=== PATIENT | female | born 1975 | race Caucasian/White ===

== ENCOUNTER → 2020-02-12 11:13 | Outpatient (BNVA) | payer OTHER, SELFPAY | PROVIDERS: Visit Provider Surgery | DX: Z76.89 Persons encountering health services in other specified circumstances (principal) ==

== ENCOUNTER → 2020-03-09 08:16 | Outpatient (BNVA) | payer OTHER, SELFPAY | PROVIDERS: PCP Nurse Practitioner Family; Visit Provider Surgery | DX: E66.3 Overweight (principal); Z68.28 Body mass index [BMI] 28.0-28.9, adult; Z71.3 Dietary counseling and surveillance | CPT/HCPCS: 99212 ==

== ENCOUNTER → 2020-04-15 07:55 | Outpatient (BNVA) | payer OTHER, SELFPAY | PROVIDERS: PCP Nurse Practitioner Family; Referring Provider Nurse Practitioner Family; Visit Provider Surgery | DX: Z76.89 Persons encountering health services in other specified circumstances (principal) ==

== ENCOUNTER → 2020-05-20 08:10 | Outpatient (BNVA) | payer OTHER, SELFPAY | PROVIDERS: PCP Nurse Practitioner Family; Visit Provider Surgery | DX: Z76.89 Persons encountering health services in other specified circumstances (principal) ==

== ENCOUNTER → 2020-07-01 08:17 | Outpatient (BNVA) | payer OTHER, SELFPAY | PROVIDERS: PCP Nurse Practitioner Family; Visit Provider Surgery ==

== ENCOUNTER → 2020-08-15 08:07 | Outpatient (BNVA) | payer OTHER, SELFPAY | PROVIDERS: PCP Nurse Practitioner Family; Visit Provider Surgery ==

== ENCOUNTER 2021-04-13 14:24 | Outpatient (REF) | payer OTHER, SELFPAY ==
[2021-04-13 15:24] LABS: COVID-19 Test Negative (Negative)
== END 2021-04-13 14:25 | disposition home or self-care (01) ==
LOC: HO.LAB 14:24
PROVIDERS: Visit Provider Internal Medicine
DX: Z20.822 Contact with and (suspected) exposure to COVID-19 (principal)
CPT/HCPCS: 36415; 87635; C9803

== ENCOUNTER 2023-12-16 11:00 | Outpatient (AMB) | payer OTHER, SELFPAY ==
[2023-12-16 11:07] VITALS: BP 120/78; PULSE 62; BMI 31.2
--- NOTE | 2023-12-16 11:07 | MHC.OFFVIS ---
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 It seems that she has been seen at [facility] in the past but she would like to switch. Cardiac history is very unclear. At some point, she has been told have reduced heart function in the 40% range but again it is from the patient only and no records available. Also told have diastolic dysfunction. Unclear if she has any hypertension as even without medications she has normal blood pressure. Apparently was taking a small dose of lisinopril and wonder if it is for cardiomyopathy. That was giving her strange sense of smell and hence she is not taking it anymore. She would like to move her cardiac care at [place]. [facility] Medical History (Updated 12/16/23 @ 12:03 by Guerrero Cheng MD) Asthma Surgical History (Updated 04/15/20 @ 09:43 by Werner Castañeda MD) S/P laparoscopic sleeve gastrectomy Overweight Hx laparoscopic cholecystectomy S/P hernia repair S/P tonsillectomy and adenoidectomy Family History (Updated 03/09/20 @ 08:16 by Giovanny Loya CMA) Father No problems noted. Mother No problems noted. Brother HTN (hypertension) Arthritis Depression Hyperlipidemia Brother No problems noted. Brother No problems noted. Sister No problems noted. Sister No problems noted. Son No problems noted. Son No problems noted. Daughter No problems noted. Daughter No problems noted. Daughter No problems noted. Social History (Updated 12/16/23 @ 11:23 by Emily Alex) Alcohol intake: never Patient Tobacco Use Status: Never used Tobacco Review of Systems Const Denies weakness ENT Denies dizziness Card Reports chest pain, Denies chest pain with activity, Denies syncope, Denies rapid heart rate, Denies pedal edema, Denies edema, Denies leg edema, Denies lightheadedness, Denies palpitations, Denies dyspnea, Denies dyspnea on exertion and Denies orthopnea Resp Denies cough, Denies dyspnea and Denies dyspnea on exertion GI Denies hematochezia and Denies change in stool character Musc Denies abnormal gait, Denies muscle cramps, Denies muscle weakness, Denies numbness, Denies radiating pain into limb and Denies tingling Neuro Denies abnormal gait, Denies dizziness, Denies syncope, Denies numbness, Denies tingling and Denies weakness Endo Denies palpitations Physical Exam Vital Signs: Last Vital Signs Pulse 62 12/16/23 11:07 BP 120/78 12/16/23 11:07 BMI result Body Mass Index 31.2 Const General: comfortable and no acute distress Orientation/consciousness: patient oriented x3 HEENT Other: Unremarkable Head: Yes normal to inspection Neck Neck: Yes normal visual inspection Chest Chest palpation & inspection: normal inspection of the chest Resp Auscultation: clear to auscultation bilaterally Cardio Palpation: normal PMI Heart sounds: S1 normal heart sound present, S2 normal heart sound present, no gallops, no murmurs and no rubs GI Palpation (GI): Soft to palpation Back/Spine/Pelvis Other: unremarkable Skin General skin exam: no rashes or lesions noted Neuro General: patient oriented x3 Extrem General: Yes normal to inspection Psych Mental Status: mental status grossly normal Office Procedures EKG Details: EKG with underlying sinus rhythm at 62/Min; left ventricular hypertrophy with slight repolarization changes; [place]. [id number], Complete Assessment & Plan Assessment & Plan (1) Cardiac abnormality: Code(s): Q24.9 - Congenital malformation of heart, unspecified Category: Medical Plan Possible mild cardiomyopathy/diastolic dysfunction by patient description but no documentation available. EKG shows suggestion of LVH. Will get an echocardiogram for further evaluation. Records from [facility] will need to be obtained. Will arrange follow-up after the above reviewed. Orders: Orders CA echo transthoracic complete Today I42.9 - Cardiomyopathy, unspecified, I51.89 - Other ill-defined heart diseases Coding Level of Care Code New Pt Level 3 (66431) Diagnoses Cardiac abnormality Q24.9 CPT Codes EKG - CPT: 35759-[id number], Complete ([id number])
== END 2023-12-16 11:37 | disposition home or self-care (01) ==
PROVIDERS: PCP Nurse Practitioner Family; Visit Provider Internal Medicine
DX: Q24.9 Congenital malformation of heart, unspecified (principal)
CPT/HCPCS: 93010; 99203

== ENCOUNTER → 2023-12-16 11:00 | Outpatient (BNVA) | payer OTHER, SELFPAY | PROVIDERS: PCP Nurse Practitioner Family; Visit Provider Internal Medicine | DX: Q24.9 Congenital malformation of heart, unspecified (principal); I42.9 Cardiomyopathy, unspecified; I51.89 Other ill-defined heart diseases | CPT/HCPCS: 93005; 99202 ==

== ENCOUNTER → 2024-01-01 07:59 | Outpatient (REF) | payer OTHER, SELFPAY ==
--- NOTE | 2024-01-01 08:04 | CA_ITS ---
Transthoracic Echocardiogram Patient (Last, First, Middle): Abbie Velasquez, Gender: Female Date of : 1975 Age: 48 Procedure Date: 01/01/2024 Procedure Type: Transthoracic Echocardiogram Location: OP Height: 162.56 cm Weight: 80.29 kg BSA: 1.86 m2 Heart Rate: 50 bpm BP: 118 / 78 mmHg [employer]ospace [employer] Physician: TO Referring MD: Guerrero Cheng MD Center Rep: Clifford Mccloud MD Symptoms: I51.89 - Other ill-defined heart diseases Study Quality: Adequate ECG Rhythm: Bradycardia Conclusions: - 1. Mildly reduced LV ejection fraction of 45-50% with pseudonormal filling pattern 2. Trivial aortic regurgitation 3. Normal RV systolic pressure 4. No gross pericardial effusion Findings Procedure Information Contrast agent, definity, is being given per protocol without apparent complications. Left Ventricle Normal left ventricular cavity size. There is normal left ventricular wall thickness. The left ventricular systolic function is mildly decreased. The visually estimated ejection fraction is between 45-50%. Spectral Doppler is indicative of a pseudonormal filling pattern. E/E prime ratio is between 8 and 15 consistent with indeterminate filling pressures. Right Ventricle Normal right ventricular cavity size and systolic function. Atria The left atrium is likely dilated. There is no evidence of interatrial shunt. The right atrium is normal in size. Aortic Valve Normal aortic valve structure and function. There is no aortic valve stenosis. There is trace (trivial) aortic valve regurgitation. Mitral Valve Normal mitral valve structure and function. There is trace mitral valve regurgitation. There is no mitral valve stenosis. Pulmonic Valve The pulmonic valve is likely normal. There is trace to mild pulmonic valve regurgitation. Tricuspid Valve Normal tricuspid valve structure. There is trace tricuspid valve regurgitation. The right ventricular systolic pressure is normal. The right ventricular systolic pressure is 18 mmHg. Normal right atrial pressure. There is no evidence of pulmonary hypertension. Great Vessels All visible segments of the aorta are normal in size. The pulmonary artery was not well visualized. There is no dilatation of the ascending aorta measuring 3.10 cm. Venous The inferior vena cava is normal in size and collapses greater than 50% with inspiration. Pericardium/Pleural There is no evidence of pericardial effusion. Prior Study Comparison Changes noted compared to prior study dated: 07/04/2019. LV systolic function has marginally reduced Measurements 2D Linear Measurements IVSd: 1.18 0.6-0.9/0.6-1.0 cm LVIDd: 5.15 3.9-5.3/4.2-5.9 cm LVIDd Index: 2.77 2.4-3.2/2.2-3.1 cm/m2 LVIDs: 3.44 2.0-3.6 cm LVPWd: 1.17 0.7-1.1 cm LA Diam: 3.70 2.7-3.8/3.0-4.0 cm LAIDs Index: 1.99 1.5-2.3 cm/m2 LV Mass: 296.70 67-162/88-224 g LV Mass Index: 159.51 43-95/49-115 g/m2 LVOT Diam: 2.20 3.0+(-)1.3 cm 2D Systolic Function EF 4C: 44.40 >55% EF 2C: 52.20 >55% EF BiP: 48.10 >55% Mitral Valve MV Pk E: 0.65 MV PK A: 0.28 MV Decel Time: 306.00 E/A: 2.30 E'Lateral: 8.59 E'Medial: 5.77 E/E' Med: 11.20 E/E' Lat: 7.50 PHT: 90.00 MVA PHT: 2.44 Decel Dauphin: 2.11 Aortic Valve AoV Pk Devin: 1.38 AoV Mn Devin: 0.89 AoV VTI: 0.33 AoV Pk Grad: 8.00 Aov Mn Grad: 4.00 MURALI Cont.VTI: 2.18 LVOT LVOT Pk Devin: 0.81 LVOT Mn Devin: 0.55 LVOT VTI: 0.19 LVOT Pk Grad: 3.00 LVOT Mn Grad: 1.00 LVOT Diam: 2.20 LVOT Area: 3.80 Diastolic Function MV Pk E: 0.65 MV Pk A: 0.28 E/A: 2.30 E'Medial: 5.77 E/E' Med: 11.20 E' Laterial: 8.59 E/E' Lat: 7.50 Right Ventricle TAPSE (mm): 19.90 TVS' Devin: 11.50 Tricuspid Valve TR Pk Devin: 1.94 TR Pk Grad: 15.00 RA Press: 3.00 RVSP: 18.00 Great Vessels Aorta Sinus of Valsalva: 3.12 2.0-3.5 cm Ao Asc: 3.10 2.1-3.4 cm Updated in Other Vendor System with Status of Final Clifford Mccloud MD electronically signed on 01/01/2024 1:47:21 PM with status of Final
== END ==
LOC: HO.CARD 07:59
PROVIDERS: Visit Provider Internal Medicine
DX: I51.89 Other ill-defined heart diseases (principal); I42.9 Cardiomyopathy, unspecified
CPT/HCPCS: 93306; Q9957

== ENCOUNTER → 2024-01-01 08:04 | Outpatient (BNV) | payer OTHER, SELFPAY | PROVIDERS: Visit Provider Internal Medicine Cardiovascular Disease | DX: I35.1 Nonrheumatic aortic (valve) insufficiency (principal); I37.1 Nonrheumatic pulmonary valve insufficiency | CPT/HCPCS: 93306 ==

== ENCOUNTER 2024-03-23 13:37 | Outpatient (AMB) | payer OTHER, SELFPAY ==
[2024-03-23 13:41] VITALS: BP 100/62; PULSE 67; BMI 32.5
--- NOTE | 2024-03-23 13:41 | MHC.OFFVIS ---
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 She had been following with [facility] and recently transferred to our office. Today she reports that she has been feeling generally well. She is having an issue with her right hip and it is causing her discomfort and affecting her activity levels. She has some mild shortness of breath with exertion. No PND, orthopnea or edema. No chest discomfort at rest or with activity. No palpitations, lightheadedness, presyncope, syncope, falls. She does not recall ever having a stress test or cardiac catheterization. She dislikes taking medications. She misses her lisinopril 5 mg some days. Daughter is present. [facility] Medical History Asthma Surgical History S/P laparoscopic sleeve gastrectomy Overweight Hx laparoscopic cholecystectomy S/P hernia repair S/P tonsillectomy and adenoidectomy Family History Father No problems noted. Mother No problems noted. Brother HTN (hypertension) Arthritis Depression Hyperlipidemia Brother No problems noted. Brother No problems noted. Sister No problems noted. Sister No problems noted. Son No problems noted. Son No problems noted. Daughter No problems noted. Daughter No problems noted. Daughter No problems noted. Social History Alcohol intake: never Patient Tobacco Use Status: Never used Tobacco Review of Systems Const All systems reviewed & are unremarkable except as noted in HPI and below ENT Denies dizziness Card Denies chest pain, Denies chest pain at rest, Denies chest pain with activity, Denies rapid heart rate, Denies pedal edema, Denies edema, Denies leg edema, Denies lightheadedness, Denies palpitations, Reports dyspnea, Reports dyspnea on exertion and Denies orthopnea Resp Denies cough, Reports dyspnea and Reports dyspnea on exertion GI Denies hematochezia and Denies change in stool character Musc Denies abnormal gait, Reports limited range of motion (active right hip pains), Denies muscle cramps, Denies muscle weakness, Denies numbness, Denies radiating pain into limb, Denies stiffness and Denies tingling Neuro Denies abnormal gait, Denies dizziness, Denies numbness and Denies tingling Endo Denies palpitations Physical Exam Vital Signs: Last Vital Signs Pulse 67 03/23/24 13:41 BP 100/62 03/23/24 13:41 BMI result Body Mass Index 32.5 Const General: cooperative, healthy appearing, comfortable and no acute distress Orientation/consciousness: patient oriented x3 HEENT Head: Yes normal to inspection Eyes Sclerae: sclerae normal Neck Neck: Yes normal visual inspection and Yes no JVD Carotids: normal carotid upstroke Chest Chest palpation & inspection: normal inspection of the chest Resp Effort & Inspection: normal respiratory effort Auscultation: clear to auscultation bilaterally, no crackles, no rales, no rhonchi and no wheezes Cardio Jugular venous distension: no JVD Rate: regular rate Rhythm: regular rhythm Heart sounds: S1 normal heart sound present, S2 normal heart sound present, no gallops, no murmurs and no rubs Peripheral pulses: Peripheral pulses 2+ throughout GI Inspection: Yes normal to inspection Skin General skin exam: no rashes or lesions noted Neuro General: patient oriented x3 Extrem General: Yes normal to inspection, No no pedal edema and No calf tenderness Psych Appearance: grossly normal Mental Status: mental status grossly normal Speech and movement: Normal speech and movement present Office Procedures EKG Details: Today, read by me, normal sinus rhythm, rate 67, QTC 386 millisecond [id number], Complete Assessment & Plan Assessment & Plan (1) Cardiomyopathy: Code(s): I42.9 - Cardiomyopathy, unspecified Category: Medical Plan: History of nonischemic cardiomyopathy. Patient had followed with [facility] and their office note has been reviewed. It seems that cardiomyopathy 1st started 2007 with EF 25-30%. It was thought to be peripartum related at that time. Notes indicate a follow-up echo done 2017 showed EF 40-45%. She recently transferred to our office. An echocardiogram done 01/01/2024 shows EF 45-50%, trivial AR, normal RV systolic pressure. She has been on lisinopril 5 mg daily and tells me she does forget taking it at times. She does not recall ever having a stress test or cardiac catheterization. She does report some shortness of breath with exertional activities. Currently her activity is limited due to right hip pain. Going forward will plan for a exercise nuclear stress test. If she is unable to exercise at the time of the test can be changed to a Lexiscan nuclear stress. Blood pressure today 100/62. Continue lisinopril at 5 mg daily. Will reach out to her PCP to obtain most recent labs. Signs and symptoms of heart failure reviewed with her. Continue physical activity as tolerated. Cardiology follow-up 6 months, sooner if needed. Plan Time spent on chart review, documentation, interview, assessment Orders: Orders NM cardiolite stress test 03/23/24 I42.9 - Cardiomyopathy, unspecified CA stress test 03/23/24 I42.9 - Cardiomyopathy, unspecified Coding Level of Care Code Est Pt Level 3 (88548) Complex EM visit Add On G2211 Diagnoses Cardiomyopathy I42.9 CPT Codes EKG - CPT: 09984-[id number], Complete ([id number]) Time Spent (min) 24
== END 2024-03-23 14:20 | disposition home or self-care (01) ==
PROVIDERS: PCP Physician Assistant Medical; Visit Provider Nurse Practitioner Family
DX: I42.9 Cardiomyopathy, unspecified (principal)
CPT/HCPCS: 93010; 99213; G2211

== ENCOUNTER → 2024-03-23 13:37 | Outpatient (BNVA) | payer OTHER, SELFPAY | PROVIDERS: PCP Physician Assistant Medical; Visit Provider Nurse Practitioner Family | DX: I42.9 Cardiomyopathy, unspecified (principal) | CPT/HCPCS: 93005; 99212 ==

== ENCOUNTER → 2024-05-19 17:00 | Outpatient (BNV) | payer OTHER, SELFPAY | PROVIDERS: Emergency Provider Emergency Medicine; PCP Physician Assistant Medical; Visit Provider Internal Medicine | DX: R94.31 Abnormal electrocardiogram [ECG] [EKG] (principal) | CPT/HCPCS: 93010 ==

== ENCOUNTER → 2024-05-19 17:04 | Outpatient (BNV) | payer OTHER, SELFPAY | PROVIDERS: Emergency Provider Emergency Medicine; PCP Physician Assistant Medical; Visit Provider Radiology Diagnostic Radiology | DX: R07.9 Chest pain, unspecified (principal) | CPT/HCPCS: 71046 ==

== ENCOUNTER → 2024-06-19 09:45 | Outpatient (REF) | payer OTHER, SELFPAY | LOC: HO.CARD 09:45 | PROVIDERS: PCP Physician Assistant Medical; Visit Provider Nurse Practitioner Family | DX: I42.9 Cardiomyopathy, unspecified (principal) | CPT/HCPCS: 78452; A9500 ==

== ENCOUNTER → 2024-06-19 09:47 | Outpatient (BNV) | payer OTHER, SELFPAY | PROVIDERS: PCP Physician Assistant Medical | DX: R06.02 Shortness of breath (principal) | CPT/HCPCS: 78452; 93016; 93018 ==

== ENCOUNTER 2024-07-07 11:22 | Outpatient (AMB) | payer OTHER, SELFPAY ==
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
--- OUTSIDE RECORDS SUMMARY | 2024-07-07 13:59 | XMS_ITS | Clinical Summary ---
Author Organization [facility] Address [address] [place] [address] Care Team Providers Care Airline Managerial Supervisor Name Role Phone Unavailable Primary Care Provider Unavailabl e Source Comments PLEASE NOTE, if this patient is a minor, it may be UNLAWFUL to discuss sensitive information that is contained in these records (such as FAMILY PLANNING, MENTAL HEALTH or SUBSTANCE ABUSE) with the minor patient's parent or other person without the patient's specific authorization.[facility] Allergies Active Allergy Reactions Criticality Noted Date Comments Morphine SOB 03/06/2019 Medications albuterol sulfate (PROAIR HFA) 90 mcg/actuation inhaler ProAir HFA 90 mcg/actuation aerosol inhaler Active butalbital-acetam inophen-caff 50-300-40 mg capIndications:Ch ronic tension-type headache, not intractable TAKE 1 TO 2 CAPSULES BY MOUTH EVERY 4 HOURS NEEDED NO MORE THAN ONCE PER WEEK 11 9 Active lisinopril 2.5 mg tabletIndications :Uncontrolled type 2 diabetes mellitus with hyperglycemia ([facility]) 9 Active topiramate (TOPAMAX) 50 mg tabletIndications :Chronic tension-type headache, not intractable topiramate 50 mg tablet Active lancets (FREESTYLE LANCETS) 28 gaugeIndications: Uncontrolled type 2 diabetes mellitus with hyperglycemia ([facility]) Order Freestyle lancets, check sugar daily. Dx: E11.65. 100 Each 2 9 Active blood-glucose meter monitoring kitIndications:Ty pe 2 diabetes mellitus without complication, without long-term current use of insulin ([facility]) as needed for blood glucose monitoring Order Free style lite. Check sugar daily. Dx; E11.65 1 Each 9 Active traMADoL (ULTRAM) 50 mg tabletIndications :Chronic bilateral low back pain without sciatica Take 1 Tab by mouth once daily as needed for pain 30 Tab 0 Active naloxone (NARCAN) 4 mg/actuation nasal sprayIndications: Chronic bilateral low back pain without sciatica Place 1 [place] into the nostril(s) as needed for opioid reversal (Overdose) 1 Each 0 Active diclofenac sodium (VOLTAREN) [address] tabletIndications :Chronic bilateral low back pain without sciatica TAKE 1 TABLET BY MOUTH TWICE A DAY NEEDED FOR PAIN 60 Tablet 2 1 Active methocarbamoL (ROBAXIN) 750 mg tabletIndications :Chronic pain syndrome TAKE 1 TABLET BY MOUTH NIGHTLY AT BEDTIME NEEDED FOR MUSCLE SPASM 30 Tablet 1 1 Active cholecalciferol, vitamin D3, (VITAMIN D3) 1,250 mcg (50,000 unit) capsuleIndication s:Vitamin D deficiency TAKE 1 CAPSULE BY MOUTH ONE TIME PER WEEK 4 Capsule 11 2 Active FREESTYLE LITE STRIPS strips USE ONE STRIP ONCE DAILY 100 Each 47 2 Active diclofenac sodium (VOLTAREN) 1 % gelIndications:Le ft elbow pain Apply topically 2 (two) times daily 100 g 3 2 Active Active Problems Problem Noted Date Diagnosed Date Bilateral primary osteoarthritis of hip 12/20/19 20 Overview (09/04/2020): 08/18/2020: [facility]: Xray of both hips: FINDINGS: AP radiograph of the pelvis, along with coned-down AP and external rotation-abduction views of the right hip and coned down AP and external rotation-abduction views of the left hip, are obtained. The study demonstrates no fracture or dislocation. There is mild osteoarthritis of the hips bilaterally with small marginal osteophytes. No soft tissue abnormality is seen. IMPRESSION: No acute findings. Mild osteoarthritis of the hips bilaterally Chronic pain syndrome 07/05/2019 Hyperlipidemia LDL goal <70 07/05/2019 Cardiomyopathy (HCC-CMS): [facility] 05/30/2019 Overview (07/11/2019): [facility] . On 05/27/2019: nonischemic cardiomyopathy; EF 45-50% (improved). On low dose lisinopril, stopped BB. F/u in 1 year. Hx of echocardiogram 04/08/2019 Overview (04/08/2019): 02/19/2019: Echo: 45-50%. Done by [facility]. Influenza vaccine refused 04/08/2019 Vitamin D deficiency 04/08/2019 Chronic bilateral low back p ain without sciatica: Sees Pain at [facility] 04/08/2019 Overview (07/11/2019): Saw Pain at [facility]: 07/01/2019: offered injections and PT. Menorrhagia 03/06/2019 Dysmenorrhea 03/06/2019 Fibromyalgia Diabetes mellitus type 2, uncomplicated ([facility] ) Chronic headache Overview (04/14/2020): 03/27/2020: [facility]: CT of brain: Impression: 1. No acute hemorrhage or intracranial mass effect. 2. Mild, nonspecific deep white matter changes compatible with chronic microvascular ischemia. 03/27/2020: [facility]: CT of neck: IMPRESSION: No evidence of carotid or vertebral artery dissection or hemodynamically significant narrowing. 12/02/2018: [facility]: CT of jan:FINDINGS: Intracranial contents: No acute intracranial hemorrhage, midline shift or mass-effect. The ventricles, sulci, sylvian fissures and basilar cisterns are symmetric and normal in size and shape for the patients age. No abnormal intra or extra-axial fluid collections. Bony structures/soft tissues: Within normal limits. Sinuses: Paranasal sinuses are clear. Mastoid air cells are well aerated. IMPRESSION: No evidence of acute intracranial process on noncontrast head CT Asthma Hx of mammogram Overview (03/08/2019): [facility]: 06/2018: IMPRESSION: 1. No mammographic evidence of malignancy. 2. Annual screening mammography is recommended Nexplanon in place Hx of tonsillectomy Hx of cholecystectomy Hx of umbilical hernia repair Immunizations Name Administration Dates Next Due Flu, Preservative Free 12/24/2016 Moderna COVID-19 Vaccine, re d cap blue label, 12+ Primary Series 08/20/2020,07/22/2020 PFIZER COVID VACCINE, PURPLE CAP, 12+ 05/24/2021 PNEUMOCOCCAL POLYSACCHARIDE PPV23 07/02/2019 Family History Medical History Relation Name Comments No Known Problems Brother No Known Problems Father Arthritis Mother Heart Problems Mother High Cholesterol Mother Other (See Comments) Sister pancrea s problem. Relation Name Status Comments Brother Alive Father Alive Mother Alive Sister Alive Social History Tobacco Use Types Packs/Day Years Used Date Smoking Tobacco: Never Smokeless Tobacco: Never Alcohol Use Standard Drinks/Week Comments Yes 0 (1 standard drink = 0.6 oz pur e alcohol) social Social Connections Answer Date Recorded Connectedness 0 01/19/2024 Financial Resource Strain Answer Date R ecorded Financial Resource Strain 0 2018 Stress Answer Date Recorded Stress 0 03/06/2019 Physical Activity Answer Date Recorded Physical Activity 0 03/06/2019 Food Insecurity Answer Date Recorded Food 0 02/06/2024 Transportation Needs Answer Date Record ed Transportation 0 03/06/2019 Housing Stability Answer Date Recorded Housing 0 03/06/2019 Safety and Environment Answer Date Balaji rded Safety 0 08/30/2020 Utilities Answer Date Recorded Utilities 0 03/06/2019 Employment Answer Date Recorded Employment 0 03/06/2019 Comments No Sex and Gender Information Value Date Recorded Sex Assigned at Female 03/06/2019 7:56 AM PDT Legal Sex Female 7:03 AM PDT Gender Identity Female 03/06/2019 7:56 AM PDT Sexual Orientation Straight 03/06/2019 7: 56 AM PDT Last Filed Vital Signs Vital Sign Reading Time Taken Comments Blood Pressure 122/80 07/02/2019 9:47 AM EST Pulse 74 07/02/2019 9:47 AM EST Temperature 36.9 ??C (98.4 ??F) 07/02/2019 9:47 AM ES T Respiratory Rate 16 07/02/2019 9:47 AM EST Oxygen Saturation 98% 07/02/2019 9:47 AM EST Inhaled Oxygen Concentration - - Weight 96.2 kg (212 lb 1.6 oz) 07/02/2019 9:47 A M EST Height 163.7 cm (5' 4.45 ) 07/02/2019 9:47 AM ES T Body Mass Index 35.9 07/02/2019 9:47 AM EST Plan of Treatment Health Maintenance Due Date Last Done Comments Dental Examination 1975 HPV Screening 1975 Hepatitis C Screening 1975 Pap + HPV 1975 Tobacco Screening 1974 Imm-Hepatitis B (1 of 3 - 19 + 3-dose series) 1993 Cervical Cancer Screening [address] Colonography 2019 Colonoscopy 2019 Colorectal Cancer Screening 2019 FIT/gFOBT 2019 Fecal DNA 2019 Flexible Sigmoidoscopy 2019 Hypertension Screening (#1) 07/01/2020 Breast Cancer Screening (Mammogram) 06/07/2022 06/07/2021 Diabetes Screening 08/19/2023 08/18/2020, 0 08/18/2020, 03/06/2019, Additional history exists [id number] ( season) 2024 05/24/2021, 08/20/2020, 07/22/2020 Imm-Influenza (#1) 2024 12/24/2016 Imm-Zoster, Recombinant (1 of 2) 2024 Alcohol and Drug Screen 05/13/2024 08/31/19 21, 07/02/2019, 03/06/2019 Depression Annual Screen 05/13/2024 Lipid Screening 08/18/2025 08/18/2020, 03/06/2019 Imm-DTaP/Tdap/Td (2 - Td or Tdap) 04/08/2028 018 HIV Screening Completed 03/06/2019 Cervical Ablation/Cold-Knife Conization Discontinued Cervical Cryotherapy Discontinued Colposcopy Discontinued Endometrial Biopsy Discontinued Excision/Leep Discontinued HPV Genotyping Discontinued Vaginal Pap Discontinued Vulvoscopy Discontinued Procedures Procedure Name Priority Date/Time Associated Diagnosis Comments HISTORIC MAMMOGRAM 06/07/2021 3: 00 AM EST COMPREHENSIVE METABOLIC PANEL Routine 08/18/2020 10:10 AM EDT Type 2 diabetes mellitus without complication, without long-term current use of insulin ([facility]) LIPID PANEL Routine 08/18/2020 10:10 AM EDT Type 2 diabetes mellitus without complication, without long-term current use of insulin ([facility]) Hyperlipidemia LDL goal <70 ANTIBODY HIV-1&HIV-2 SINGLE RESULT Routine 03/06/2019 11:32 AM EDT Uncontrolled type 2 diabetes mellitus with hyperglycemia ([facility]) from Last 3 Months or Most Recently Relevant to Health Maintenance Results * HISTORIC MAMMOGRAM (06/07/2021 3:00 AM EST) 06/07/2021 3:00 AM EST [facility] IM MAMMO Edited Result - Final * COMPRE METAB PANEL (08/18/2020 10:10 AM EDT) GLUCOSE 88 65 - 99 mg/dL [facility] Comment: ?Fasting reference interval UREA NITROGEN (BUN) 15 7 - 25 mg/dL [facility] CREATININE (blood) 0.65 0.50 - 1.10 mg/dL [facility] GFR ESTIMATED 106 > OR = 60 mL/min/1 .73m2 [facility] EGFR 123 > OR = 60 mL/min/1 .73m2 [facility] BUN/CREATININE RATIO NOT APPLICABLE 6 - 22 [facility] SODIUM 137 135 - 146 mmol/L [facility] POTASSIUM 4.3 3.5 - 5.3 mmol/L [facility] CHLORIDE 103 98 - 110 mmol/L [facility] CARBON DIOXIDE 29 20 - 32 mmol/L [facility] CALCIUM 9.2 8.6 - 10.2 mg/dL [facility] PROTEIN, TOTAL 6.7 6.1 - 8.1 g/dL [facility] ALBUMIN 4.2 3.6 - 5.1 g/dL [facility] GLOBULIN 2.5 1.9 - 3.7 g/dL (calc) [facility] ALBUMIN/GLOBUL IN RATIO 1.7 1.0 - 2.5 (calc) [facility] BILIRUBIN, TOTAL 0.4 0.2 - 1.2 mg/dL [facility] ALKALINE PHOSPHATASE 63 31 - 125 U/L [facility] AST 16 10 - 35 U/L [employer] ALT 10 6 - 29 U/L [facility] Blood Blood / Unknown 08/18/2020 1 0:10 AM EDT 08/18/2020 10:10 AM EDT Narrative [facility] - 08/18/2020 8:09 PM EDT FASTING:YES Gemini L[facility] - BLOOD DRAW Final Result [facility] [address] [address], [facility] [address] [address] * HIV-1 & HIV-2 ANTIBODIES (03/06/2019 11:32 AM EDT) [facility] HIV 1 AND 2 ANTIBODY SCREEN NEGATIVE NEGATIVE [facility] Comment: This assay is a 4th generation assay allowing for earlier detection of HIV infection by detecting the presence of the HIV-1 p24 antigen as well as the traditional antibodies to HIV type 1 (including group O) and type 2. ??Use of a 4th generation assay is the current CDC recommendation for HIV screening. Blood specimen (specimen) Blood / Unknown 03/06/2019 11:32 AM EDT 03/06/2019 11:47 AM EDT [facility] - 03/06/2019 4:45 PM EDT [employer], [place] [address] Manufacturing Team Member - Rayna Masters MD PT ID [id number] ORD# [id number] [facility] - BLOOD DRAW Final Result [facility] [address], from Last 3 Months or Most Recently Relevant to Health Maintenance Insurance [employer]
--- OUTSIDE RECORDS SUMMARY | 2024-07-07 13:59 | XMS_ITS | Patient Health Record ---
Author Organization [facility] Address [address] [id number] Care Team Providers Care Rn Acls Name Role Phone SHANICE LINCOLN Unavailable [phone] Allergies Allergen (clinical drug ingredient) Drug/Non Drug Allergy documented on EMR Reaction Allergy Type Onset Date Status Mold Unknown Allergy Active Rodents Unknown Allergy Active Horses Unknown Allergy Active Results Component Value Reference Range Notes THINPREP PAP TEST, Cervix Reviewed date:05/19/2024 05:00:58 PM Interpretation:NIL Performing Lab:[facility], [address] [facility], [place], [address] Varinder Paniagua DO Notes/Report: THINPREP PAP TEST NEGATIVE NEGATIVE -- THIN PREP PAP TEST -- SEX: F : 1975 AGE: 49 [id number] CLINIC ID: [id number] SS: PHYSICIAN: SHANICE LINCOLN CARDIOPULMONARY PHYSICAL THERAPIST COLLECTED BY: ____ Negative for Intraepithelial Lesion or Malignancy ____ Additional Findings: Endocervical Material Present Specimen Adequacy: Satisfactory for Evaluation Previous History: September 2015 Negative HPV(Neg) Clinical Note: HPV RirchmdJ76.419 Encounter for gynecological examination (general) (routine) without abnormal ydarjkaqK44.51 Encounter for screening for human papillomavirus (HPV)Z11.3 Encounter for screening for infections with a predominantly sexual mode of transmission, LMP 04/02/2024 Specimen Source: Cervix Visit Type: Routine Performed by: BRYON Curtis (ASCP) (Electronic Signature 05/18/2024 23:44) APTIMA COMBO 2 CT/NG, Cervix Reviewed date:05/18/2024 03:51:57 PM Interpretation:Negative Performing Lab:[facility], [place], [place], [address] Varinder Paniagua DO Notes/Report: GONORRHEA, AMPLIFIED NEGATIVE NEGATIVE CHLAMYDIA, AMPLIFIED NEGATIVE NEGATIVE DNA Test Results SEX: F : 1975 AGE: 49 [id number] CLINIC ID: [id number] SS: PHYSICIAN: SHANICE LINCOLN CARDIOPULMONARY PHYSICAL THERAPIST COLLECTED BY: [id number] ____ Specimen Source: Cervix Specimen Type: ThinPrep PAP Correlating Pap: [id number] Neisseria gonorrhoeae: NEGATIVE Normal Value: Negative Chlamydia trachomatis: NEGATIVE Normal Value: Negative HPV HIGH RISK, Cervix Reviewed date:05/19/2024 10:12:36 AM Interpretation:Negative Performing Lab:[facility], [place], [place], [address] Varinder Paniagua DO Notes/Report: HPV HIGH RISK NEGATIVE NEGATIVE HPV High Risk DNA Probe Assay SEX: F : 1975 AGE: 49 [id number] CLINIC ID: [id number] SS: PHYSICIAN: SHANICE LINCOLN CARDIOPULMONARY PHYSICAL THERAPIST COLLECTED BY: ____ Specimen Source: Cervix Specimen Type: ThinPrep Pap Correlating Pap: [id number] Additional High Risk Subtypes* NEGATIVE * Includes 31,33,35,39,45,51,52,56,58,59,66, 68 Subtype 16 NEGATIVE Subtype 18 NEGATIVE Reason For Referral No Information Medications Medication SIG (Take, Route, Fr equency, Duration) Notes Start Date End Date Status Topiramate Active Meloxicam Active Vitamin D 1000 UNIT 1 tablet Orally Once a day Active Nexplanon 68 MG as directed Subcutaneous Active Lyrica 25 MG 2 capsules Orally Th ree times a day Not-Taking iron 1 tab Oral Not-Takin g traMADol HCl 50 MG 1 tablet as needed O rally every 6 hrs Not-Taking Baclofen Active Social History Sex Assigned At : Social History Observation Description Sex Assigned At Female Vital Signs Blood pressure diastolic 88 mm Hg 05/12/2024 Height 64 in 05/12/2024 Blood pressure systolic 126 mm Hg 05/12/2024 Weight 183.2 lbs 05/12/2024 BMI 31.44 kg/m2 05/12/2024 Encounters Encounter Location Date Provider Diagnosis [facility] [address] [place] [address] [address] [place], [place] [id number] 05/12/2024 SHANICE LINCOLN Encounter for gynecological examination (general) (routine) without abnormal findings Z01.419 ; Encounter for screening for human papillomavirus (HPV) Z11.51 and Encounter for screening for infections with a predominantly sexual mode of transmission Z11.3 Assessments Encounter Date Diagnosis (ICD Code) Assessment Notes Treatment Notes Treatment Clinical Notes Section Notes 05/12/2024 Encounter for gynecological examination (general) (routine) without abnormal findings (ICD-10 - Z01.419) Reviewed routine screening and safe sex. Aware of ASCCP guidelines and self breast awareness. Encouraged routine physical with PCP to have routine labs and screening performed. Up to date with mammo, had done at [facility], normal as per clt. Discussed perimenopause, clt denies vasomotor or genitourinary symptoms. Reviewed signs that would warrant further eval and follow-up care Can continue with nexplanon until it expires 11/2024. Will consider removal and watch bleeding pattern, vs having nexplanon replacement for another couple of years. Mom didn't go through menopause until mid 50's. Not sexually active, but would like to continue with method for management of heavy menses which is greatly improved with nexplanon 05/12/2024 Encounter for screening for human papillomavirus (HPV) (ICD-10 - Z11.51) 05/12/2024 Encounter for screening for infections with a predominantly sexual mode of transmission (ICD-10 - Z11.3) Plan Of Treatment No Information Insurance Providers Payer Name Payer Address Payer Phone Subscriber Number Group Number Insured Name Patient Relationship to Insured Coverage Start Date Coverage End Date [place]S [address] [place] [id number] Abbie Velasquez Self - patient is the insured Medications Administered Medication Instructions Date of Administration Dosage Notes Lidocaine 1% 12/10/2019 3 mL Medical (General) History Medical History History ICD Code Weight concerns Fibromyalgia VVC Asthma UTI Depression/anxiety Peritonitis Previous Hx of severe headaches due to f ood allergies Gall bladder problems Heart disease Allergies to animal dander and different foods Hx of menorrhagia and dysmenorrhea Hx of ovarian cysts Surgical History Surgery Date(Month/Year) gallbladder hernia tonsilectomy gastrectomy Hospitalization History Reason Date(Month/Year) see above Hx peritonitis 2007
--- OUTSIDE RECORDS SUMMARY | 2024-07-07 13:59 | XMS_ITS ---
Author Organization [employer] [facility] Address [address] [id number] Care Team Providers Care Emergency Management Consultant Name Role Phone MECHE AREVALO Unavailable [phone] Allergies Allergen (clinical drug ingredient) Drug/Non Drug Allergy documented on EMR Reaction Allergy Type Onset Date Status Mold Unknown Allergy Active Rodents Unknown Allergy Active Horses Unknown Allergy Active Results Component Value Reference Range Notes THINPREP PAP TEST, Cervix Reviewed date:05/19/2024 05:00:58 PM Interpretation:NIL Performing Lab:[facility], [address] [facility], [place], [address] Varinder Paniagua DO Notes/Report: THINPREP PAP TEST NEGATIVE NEGATIVE -- THIN PREP PAP TEST -- SEX: F : 1975 AGE: 49 [id number] CLINIC ID: [id number] SS: PHYSICIAN: MECHE AREVALO PEDIATRIC NEUROLOGIST COLLECTED BY: ____ Negative for Intraepithelial Lesion or Malignancy ____ Additional Findings: Endocervical Material Present Specimen Adequacy: Satisfactory for Evaluation Previous History: September 2015 Negative HPV(Neg) Clinical Note: HPV MqledkoI91.419 Encounter for gynecological examination (general) (routine) without abnormal uyigehknI37.51 Encounter for screening for human papillomavirus (HPV)Z11.3 Encounter for screening for infections with a predominantly sexual mode of transmission, LMP 04/02/2024 Specimen Source: Cervix Visit Type: Routine Performed by: BRYON Curtis (ASCP) (Electronic Signature 05/18/2024 23:44) APTIMA COMBO 2 CT/NG, Cervix Reviewed date:05/18/2024 03:51:57 PM Interpretation:Negative Performing Lab:[facility], [place], [address] Varinder Paniagua DO Notes/Report: GONORRHEA, AMPLIFIED NEGATIVE NEGATIVE CHLAMYDIA, AMPLIFIED NEGATIVE NEGATIVE DNA Test Results SEX: F : 1975 AGE: 49 [id number] CLINIC ID: [id number] SS: PHYSICIAN: MECHE AREVALO PEDIATRIC NEUROLOGIST COLLECTED BY: [id number] ____ Specimen Source: Cervix Specimen Type: ThinPrep PAP Correlating Pap: [id number] Neisseria gonorrhoeae: NEGATIVE Normal Value: Negative Chlamydia trachomatis: NEGATIVE Normal Value: Negative HPV HIGH RISK, Cervix Reviewed date:05/19/2024 10:12:36 AM Interpretation:Negative Performing Lab:[facility], [address], [place], [address] Varinder Paniagua DO Notes/Report: HPV HIGH RISK NEGATIVE NEGATIVE HPV High Risk DNA Probe Assay SEX: F : 1975 AGE: 49 [id number] CLINIC ID: [id number] SS: PHYSICIAN: MECHE AREVALO PEDIATRIC NEUROLOGIST COLLECTED BY: ____ Specimen Source: Cervix Specimen Type: ThinPrep Pap Correlating Pap: [id number] Additional High Risk Subtypes* NEGATIVE * Includes 31,33,35,39,45,51,52,56,58,59,66, 68 Subtype 16 NEGATIVE Subtype 18 NEGATIVE REASON FOR VISIT Annual Exam Medications Medication SIG (Take, Route, Fr equency, Duration) Notes Start Date End Date Status Vitamin D 1000 UNIT 1 tablet Orally Once a day Active Nexplanon 68 MG as directed Subcutaneous Active Lyrica 25 MG 2 capsules Orally Th ree times a day Not-Taking iron 1 tab Oral Not-Takin g traMADol HCl 50 MG 1 tablet as needed O rally every 6 hrs Not-Taking Topiramate Active Meloxicam Active Baclofen Active Social History Sex Assigned At : Social History Observation Description Sex Assigned At Female Vital Signs Blood pressure systolic 126 mm Hg 05/12/20 24 Blood pressure diastolic 88 mm Hg 024 Height 64 in 05/12/2024 Weight 183.2 lbs 05/12/2024 BMI 31.44 kg/m2 05/12/2024 Encounters Encounter Location Date Provider Diagnosis [facility] [address] [place] [address] [address] [place], [place] [id number] 05/12/2024 MECHE AREVALO Encounter for gynecological examination (general) (routine) without [...] to date with mammo, had done at [facility], normal as per clt. Discussed perimenopause, clt [...] transmission (ICD-10 - Z11.3) Plan Of Treatment Treatment Notes Assessment Notes Encounter for gynecological examination (general) (routine) without abnormal findings Reviewed routine screening and safe sex. Aware of ASCCP guidelines and self breast awareness. Encouraged routine physical with PCP to have routine labs and screening performed. Up to date with mammo, had done at [facility], normal as per clt. Discussed perimenopause, clt [...] menses which is greatly improved with nexplanon Next Appt Details Follow Up: 1 Year, Reason: Progress Notes * VELASQUEZ, BelindaopalDOB:1975 ( 49 yo F)Acc No.[id number]:05/12/2024 Progress Notes Patient:?Abbie VELASQUEZ Provider:?Meche Arevalo NP :1975???Age:49 Y???Sex:Female D ate:05/12/2024 Address:[address] [place] [id number] Subjective: * Chief Complaints: * ???Annual Exam * HPI: ???Visit Narrative:?Current form of control:?Nexplanon.?Presenting Symptoms:?no Sx or concerns.?LMP:?04/02/2024.?Last date of UPI:?2009.?Other Notes for the Clinician:?Client requesting annual examination and Pap smear. States her last annual exam had been done?w/ [facility]. Currently has no concerns and is happy with Nexplanon. States she only experiences light vaginal spotting every month.? * ROS:?see HPI. * Medical History:? 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 control:?Nexplanon, hormonal intrauterine device (expelled x3).?Last mammogram date:?2016 normal per [id number] BIRADS 2 benign, dense BR.?Last pap smear date:?09/08/2015 NIL, HPV neg.?Menarche: ?Age of menarche?9 ???Menstruation: ?Character of period:?light ???Periods:?every month, scant blood loss.?Sexual activity:?not currently sexually active.?Sexually Transmitted Diseases (STDs):?none.?Unprotected sex in the last 5 days?:?no.?Unprotected sex in the past 10 days?:?no.? * OB History:?Total pregnancies:?6.?Total living children:?5.?Miscarriage(s):?1.? * Surgical History:?gallbladde r hernia tonsilectomy gastrectomy * Hospitalization/Major Diagno stic Procedure:?peritonitis 2008see above Hx * Family History:?Daughter(s): microcephaly.?Son(s): autism.?Mother: high cholesterol.?Paternal Grand Mother: diabetes mellitus.? * Social History:?Food Access:?Food Access?The Client's current access to food is?Secure Food Access ???Housing:?Housing?The client's current living situation is:?stable housing ???Reproductive Life Plan:?Reproductive Life Plan?Do you want to have children??No, I don't want to have children ?How sure are you that you will be able to use your control method without any problems??Very sure ?People's plans change. Is it possible you or your partner could ever decide to become ??No ???Sexual History:?Sexual History?Sexual History Reviewed:?Partners, Practices, Protection/Past STIs, Prevention of ?Currently sexually active??No ?When was the last time you were sexually active??04/12/2010 ?When you are sexually active, who are your partners??Men ?Your sexual activities include:?no sexual activity ?Reviewed types of EC??No ?Number of partners in past 3 months:?0 ?Number of partners in past year:?0 ?What is the client's primary method to prevent at the end of their visit??Hormone Implant (Nexplanon) ???HIV Risk Assessment:?Additional Questions?Is an HIV Risk Assessment being conducted??No ???PrEP for HIV:?PrEP for HIV?Is the client interested in beginning/continuing PrEP for HIV??No ???Relationships:?Relationships?Has the client experienced any of the following:?Client has never experienced harmful relationships ???Human Trafficking:?Human Trafficking?Experienced:?No ???Tobacco Use:?Tobacco Use?Do you/have you used tobacco??No ?Tobacco Smoking Status?Unknown if ever smoked ???Drugs/Alcohol:?Drug/Alcohol Use?Do you or have you used drugs??No ?Do you or have you used alcohol??Yes, currently occasional use ???Counseling Provided:?Counseling Provided?Please indicate the length of time, in minutes, that counseling was provided.?8 ?Counseling Was Provided By:?zahida * Medications:?TakingBaclofen Topiramate Meloxicam Vitamin D 1000 UNIT Tablet 1 tablet Orally Once a day Nexplanon 68 MG Implant as directed Subcutaneous Taking Baclofen Taking Topiramate Taking Meloxicam Taking Vitamin D 1000 UNIT Tablet 1 tablet Orally Once a day Taking Nexplanon 68 MG Implant as directed Subcutaneous Not-Taking/PRNLyrica 25 MG Capsule 2 capsules Orally Three times a day iron 1 tab Oral traMADol HCl 50 MG Tablet 1 tablet as needed Orally every 6 hrs Medication List reviewed and reconciled with the patientNot-Taking/PRN Lyrica 25 MG Capsule 2 capsules Orally Three times a day Not-Taking/PRN iron 1 tab Oral Not-Taking/PRN traMADol HCl 50 MG Tablet 1 tablet as needed Orally every 6 hrs Medication List reviewed and reconciled with the patient * Allergies:?MoldHorsesRodents no[Allergies Verified] Objective: * Vitals:?BP:126/88mm Hg, Ht: 64 in, Wt:183.2lbs, BMI:31.44Index, Ht-cm: 162.56, Wt-k.1. * Examination: ???Genitourinary: ?EXTERNAL GENITALIA:?VAGINA:?URETHRAL MEATUS:?CERVIX:?ANUS AND PERINEUM:?General Exam: ?CONSTITUTIONAL:?NECK/THYROID:?RESPIRATORY:?CARDIOVASCULAR:?BREAST, Right:?BREAST, Left:?GASTROINTESTINAL:?SKIN:?NEURO/PSYCH:? Assessment: * Assessment: 1.?Encounter for gynecologic al examination (general) (routine) without abnormal findings - Z01.419 (Primary)???2.?Encounter for screening for human papillomavirus (HPV) - Z11.51???3.?Encounter for screening for infections with a predominantly sexual mode of transmission - Z11.3??? Plan: * Treatment: 2.?Encounter for screening f or human papillomavirus (HPV)?LAB: HPV HIGH RISK, Cervix (Collection Date & Time - 05/12/2024 09:39 AM) 3.?Encounter for screening f or infections with a predominantly sexual mode of transmission?LAB: APTIMA COMBO 2 CT/NG, Cervix (Collection Date & Time - 05/12/2024 09:39 AM) * Procedure Codes:?00683 Chlam ydia - Amplified [id number] Gonorrhea - Amplified [id number] HPV Pap * Follow Up:?1 Year * Billing Information: * Visit Code:? 20883 Existing Preventative - Age 40-64 (IN USE). * Procedure Codes:? 77939 Chlamydia - Amplified probe. 84760 Gonorrhea - Amplified probe. 44162 HPV Pap. * Sign off status: Completed true * Provider:?Meche Arevalo NP Date:? 024 Generated for Johanne winters/Felipa/Melitting on:?07/07/2024 01:58 PM EST History and Physical Notes * HPI (History of Present Illness) Category Sub-Category Detail Notes Category Not es Visit Narrative Current form of control: Nexplan on Presenting Symptoms: no Sx or concerns Other Notes for the Clinician: Client re questing annual examination and Pap smear. States her last annual exam had been done w/ [facility]. Currently has no concerns and is happy with Nexplanon. States she only experiences light vaginal spotting every month LMP: 04/02/2024 Last date of UPI: 2009 Examination Category Sub-Category Detail Notes Category Not es General Exam CONSTITUTIONAL: General Appearan ce:: alert, in no acute distress NECK/THYROID: Inspection/Palpation:: normal Thyroid:: normal size and shape RESPIRATORY: Auscultation:: clear to ausculta tion bilaterally Respiratory Effort:: normal CARDIOVASCULAR: Auscultation:: regular rate and rhythm GASTROINTESTINAL: Abdomen:: no masses, nontender , nondistended SKIN: Skin:: no suspicious lesions, wa rm and dry NEURO/PSYCH: Orientation:: time , place, pers on Mood/Affect:: normal BREAST, Right: Inspection/Palpation :: no discharge, no masses present, no nipple retraction, no skin changes, no skin dimpling, no tenderness, no lymphadenopathy, no axillary mass, no axillary tenderness BREAST, Left: Inspection/Palpation :: no discharge, no masses present, no nipple retraction, no skin changes, no skin dimpling, no tenderness, no lymphadenopathy, no axillary mass, no axillary tenderness Genitourinary EXTERNAL GENITALIA: External Genitalia:: nor mal, no lesions VAGINA: Vagina:: normal appe arance, no abnormal discharge, no lesions URETHRAL MEATUS: Urethral Meatus:: normal CERVIX: Cervix:: no lesions, Pap done, f riability present ANUS AND PERINEUM: Anus/Perineum:: visually norm al
--- OUTSIDE RECORDS SUMMARY | 2024-07-07 13:59 | XMS_ITS ---
Author Organization [facility] Address [address] [place] [id number] Care Team Providers Care Wax Pumper Name Role Phone SHANICE AREVALO Unavailable [phone] REASON FOR VISIT Annual Exam Social History Sex Assigned At : Social History Observation Description Sex Assigned At Female Encounters Encounter Location Date Provider Diagnosis [facility] [address] [place] [address] [place], [place] [phone] 01/15/2023 SHANICE AREVALO Plan Of Treatment No Information Progress Notes * Abbie VELASQUEZDOB:1975 ( 49 yo F)Acc No.[id number]:01/15/2023 Progress Note Patient:?Abbie VELASQUEZ Provider:Faith Arevalo NP :1975???Age:47 Y???Sex:Female D ate:01/15/2023 Address:[address] [place], [place] [id number] Subjective: * Chief Complaints: * ???1. Annual Exam. * Medical History:? Objective: * Vitals:? Assessment: Plan: * Treatment: * Billing Information: * Visit Code:? * Procedure Codes:? * Electronic signature of ANGELICA AREVALO NP on 07/07/2024 at 01:59 PM EST Sign off status: Pending * Provider:Faith Arevalo NP Date:? 023 Generated for Printi ng/Faxing/eTransmitting on:?07/07/2024 01:59 PM EST
--- OUTSIDE RECORDS SUMMARY | 2024-07-07 13:59 | XMS_ITS | Clinical Summary ---
Author Organization [facility] it Address [address] [place] [address] Care Team Providers Care Rear Load Truck Driver Name Role Phone Gemini Larson NP Primary Care Provider [phone] Immunizations Name Administration Dates Next Due Moderna SARS-CoV-2 COVID-19, mRNA, LNP-S, preservative free 08/20/2020,07/22/2020 Pfizer SARS-CoV-2 COVID-19, mRNA, LNP-S, preservative free 05/24/2021 Family History Medical History Relation Name Comments Other: cardiac stent Mother Relation Name Status Comments Mother Social History Tobacco Use Types Packs/Day Years Used Date Smoking Tobacco: Never Smokeless Tobacco: Never Alcohol Use Standard Drinks/Week Comments Yes 0 (1 standard drink = 0.6 oz pur e alcohol) Comments Unknown Sex and Gender Information Value Date Recorded Sex Assigned at Not on file Legal Sex Female 2:27 AM EST Gender Identity Not on file Sexual Orientation Not on file Obstetrics History Last Filed Vital Signs Vital Sign Reading Time Taken Comments Blood Pressure 126/68 12/07/2022 1:27 PM EDT Sit ting R Arm Pulse 60 12/07/2022 1:27 PM EDT Temperature - - Respiratory Rate - - Oxygen Saturation - - Inhaled Oxygen Concentration - - Weight 86.2 kg (190 lb) 12/07/2022 1:27 PM EDT Height 162.6 cm (5' 4 ) 12/07/2022 1:27 PM EDT Body Mass Index 32.61 12/07/2022 1:27 PM EDT Plan of Treatment Health Maintenance Due Date Last Done Comments DTaP,Tdap,and Td Vaccines (1 - Tdap) 1993 Hepatitis B Vaccines (1 of 3 - 19+ 3-dose series) 1993 Cervical Cancer Screening: Pap Smear 1995 Cholesterol Screening (Lipid Panel) 04/21/2022 Colorectal Cancer Screening: Colonoscopy 04/21/2022 Depression Screening 04/21/2022 HIV Screening 04/21/2022 Hepatitis C Screening 04/21/2022 Social Influencers of Health Screening 04/21/2022 COVID-19 Vaccine ( season) 2024 05/24/2021, 08/20/2020, 07/22/2020 Influenza Vaccine (#1) 2024 Pneumococcal Vaccine: 50+ Years (1 of 1 - PCV) 2024 Zoster Vaccines (1 of 2) 2024 Breast Cancer Screening 12/12/2025 12/13/19 24, 11/05/2022, 06/07/2021, Additional history exists HIB Vaccines Aged Out No longer eligi ble based on patient's age to complete this topic HPV Vaccines Aged Out No longer eligi ble based on patient's age to complete this topic Hepatitis A Vaccines Aged Out No long er eligible based on patient's age to complete this topic IPV Vaccines Aged Out No longer eligi ble based on patient's age to complete this topic MMR Vaccines Aged Out No longer eligi ble based on patient's age to complete this topic Meningococcal ACWY Vaccine Aged Out N o longer eligible based on patient's age to complete this topic Meningococcal B Vacine Aged Out No lo nger eligible based on patient's age to complete this topic Pneumococcal Vaccine: Pediatrics (0 to 5 Years) and At-Risk Patients (6 to 64 Years) Aged Out No longer eligible based on patient's age to complete this topic RSV Immunization Patients Under 20 months Aged Out No longer eligible based on patient's age to complete this topic Varicella Vaccines Aged Out No longer eligible based on patient's age to complete this topic Procedures Procedure Name Priority Date/Time Associated Diagnosis Comments [facility] SCREENING DIGITAL Routine 12/13/2023 3:02 PM EDT Encounter for screening mammogram for malignant neoplasm of breast from Last 3 Months or Most Recently Relevant to Health Maintenance Results * TESS SCREENING DIGITAL (12/13/2023 3:02 PM EDT) Anatomical Region Laterality Modality Mammography 12/13/2023 1:29 PM EDT Narrative 12/13/2023 3:02 PM EDT [facility] Diagnostic Imaging Department [address] [place] [id number] Patient: ??VELASQUEZ,ABBIE E ?/Age/Sex: 1975 - 48 - F Unit#: ??[id number] ? Location/Status: ??SPDIMAM/REG CLI ? Mnemonic/Ordering Site: ??DIGSC/SPMAM Ordering Physician: ??CAYLA CUNNINGHAM [facility] Screening Digital - 12/13/23 - 1403 Report Status:Signed EXAM: [facility] Screening Digital EXAM DATE AND TIME: 12/13/2023 2:03 PM HISTORY: ??Screening. COMPARISON: ??11/02/22, 06/07/21, 07/20/19 TECHNIQUE: Bilateral digital breast tomosynthesis was performed in the CC and MLO projections. Computer aided detection with [employer]gu 3D 3.1 was employed. TISSUE DENSITY: b. There are scattered areas of fibroglandular density. FINDINGS: No suspicious masses, grouped microcalcifications, or areas of architectural distortion are seen. Vascular calcification is present. The skin is unremarkable. IMPRESSION: Stable mammographic appearance of the breasts. ??No evidence of malignancy is seen. A negative mammogram in the presence of a clinically suspicious palpable abnormality does not preclude the possibility of malignancy or alter the indications for biopsy. BI-RADS: ??Category 2: Benign RECOMMENDATION(S): 1: Routine screening mammogram BILATERAL in 1 year. Dictating Physician: ??MARIBEL DOYLE MD Electronically Signed by: ??MARIBEL DOYLE MD Dic Date/Time: ??12/13/23 1502 Sign date/Time: ??12/13/23 1502 Procedure Note Maribel Doyle MD - 02/26/2024 [facility] Diagnostic Imaging Department [address] [place] [address] Patient: ABBIE VELASQUEZ /Age/Sex: 1975 - 48 - F Unit#: [id number] Location/Status: [facility] CLI Mnemonic/Ordering Site: [facility] Ordering Physician: CAYLA CUNNINGHAM [facility] Screening Digital - 12/13/23 - 1403 Report Status:Signed EXAM: [facility] Screening Digital EXAM DATE AND TIME: 12/13/2023 2:03 PM HISTORY: Screening. COMPARISON: 11/02/22, 06/07/21, 07/20/19 TECHNIQUE: Bilateral digital breast tomosynthesis was performed in the CCand MLO projections. Computer aided detection with Figgu 3D 3.1was employed. TISSUE DENSITY: b. There are scattered areas of fibroglandular density. FINDINGS: No suspicious masses, grouped microcalcifications, or areas ofarchitectural distortion are seen. Vascular calcification is present. The skin is unremarkable. IMPRESSION: Stable mammographic appearance of the breasts. No evidence of malignancyis seen. A negative mammogram in the presence of a clinically suspicious palpable abnormality does not preclude the possibility of malignancy or alter the indications for biopsy. BI-RADS: Category 2: Benign RECOMMENDATION(S): 1: Routine screening mammogram BILATERAL in 1 year. Dictating Physician: MARIBEL DOYLE MD Electronically Signed by: MARIBEL DOYLE MD Dic Date/Time: 12/13/23 1502 Sign date/Time: 12/13/23 1502 us Cayla [facility] IMG BI PROCEDURES Final Resu lt from Last 3 Months or Most Recently Relevant to Health Maintenance Care Teams Rear Load Truck Driver Relationship Specialty Start Date End Date Gemini Larson NP [address] [place] [address] PCP - General 06/06/21
== END 2024-07-07 11:50 | disposition home or self-care (01) ==
PROVIDERS: PCP Physician Assistant Medical; Visit Provider Surgery Vascular Surgery
DX: I83.11 Varicose veins of right lower extremity with inflammation (principal)
CPT/HCPCS: 99204

== ENCOUNTER → 2024-07-07 11:22 | Outpatient (BNVA) | payer OTHER, SELFPAY | PROVIDERS: PCP Physician Assistant Medical; Visit Provider Surgery Vascular Surgery | DX: I83.11 Varicose veins of right lower extremity with inflammation (principal); I83.811 Varicose veins of right lower extremity with pain | CPT/HCPCS: 99202 ==

== ENCOUNTER 2024-07-31 10:15 | Outpatient (REF) | payer OTHER, SELFPAY ==
--- NOTE | ~2024-07-31 | US_ITS ---
EXAMINATION: US LOWER EXTREMITY VENOUS (REFLUX EXAM), BILATERAL CLINICAL INFORMATION: Status post surgery left right femoral artery. COMPARISON: None. TECHNIQUE: Color flow triplex imaging and compression Doppler was performed to evaluate both the deep and the superficial systems bilaterally. To evaluate the superficial system, the examination was performed in the upright position. Color-flow Doppler ultrasound and compression ultrasound were utilized. In addition, maneuvers were utilized to demonstrate reflux. FINDINGS: 1. DEEP VENOUS ULTRASOUND OF THE RIGHT LOWER EXTREMITY: Common Femoral Vein: Compressible, normal respiratory variation and augmented flow. Femoral Vein: Compressible, normal color flow and augmentation. Popliteal Vein: Compressible, normal augmentation. Deep Reflux: There is no evidence of reflux in the deep system in either the common femoral vein, superficial femoral or the popliteal vein. There is no evidence of a Wilson's cyst. 2. SUPERFICIAL ULTRASOUND WITH DOPPLER OF RIGHT LOWER EXTREMITY: GREAT SAPHENOUS VEIN: Saphenofemoral Junction: 0.8 cm; Reflux: 0 ms Proximal Thigh: 0.7 cm; Reflux: More than 2100 ms Mid Thigh: 0.4 cm; Reflux: More than 2312 ms Distal Thigh: 0.5 cm; Reflux: More than 2608 ms At Knee: 0.4 cm; Reflux: More than 2484 ms Proximal Calf: 0.4 cm; Reflux: More than 1240 ms Mid Calf: 0.2 cm; Reflux: More than 2588 ms Distal Calf: 0.3 cm; Reflux: 1052 ms DUPLICATED MEDIAL GREAT SAPHENOUS VEIN: Diameter: None imaged Reflux: NA DUPLICATED LATERAL GREAT SAPHENOUS VEIN: Diameter: 0.4 cm. Reflux: NA SMALL SAPHENOUS VEIN: Saphenopopliteal Junction: 0.2 cm; Reflux: 0 ms Proximal: 0.2 cm; Reflux: 1472 ms Distal: 0.2 cm; Reflux: 444 ms VEIN OF GIACOMINI: Size: NA Reflux: NA PERFORATORS: Location: Small saphenous vein mid segment. Mid thigh and midcalf. Size: 0.1-0.2 cm Reflux: 2016 ms in the midsegment small saphenous vein. VARICOSITIES: Location: Small saphenous vein, proximal segment and proximal calf. Size: 0.3 cm. Reflux: More than 2888 ms in the proximal calf. 3. DEEP VENOUS ULTRASOUND OF THE LEFT LOWER EXTREMITY: Common Femoral Vein: Compressible, normal respiratory variation and augmented flow. Femoral Vein: Compressible, normal color flow and augmentation. Popliteal Vein: Compressible, normal augmentation. Deep Reflux: There is no evidence of reflux in the deep system in either the common femoral vein, superficial femoral or the popliteal vein. There is no evidence of a Wilson's cyst. 4. SUPERFICIAL ULTRASOUND WITH DOPPLER OF LEFT LOWER EXTREMITY: GREAT SAPHENOUS VEIN: Saphenofemoral Junction: 0.8 cm; Reflux: 0 ms Proximal Thigh: 0.7 cm; Reflux: 0 ms Mid Thigh: 0.3 cm; Reflux: 0 ms Distal Thigh: 0.3 cm; Reflux: 560 ms At Knee: 0.7 cm; Reflux: 504 ms Proximal Calf: 0.2 cm; Reflux: 0 ms Mid Calf: 0.2 cm; Reflux: 0 ms Distal Calf: 0.3 cm; Reflux: More than 2344 ms DUPLICATED MEDIAL GREAT SAPHENOUS VEIN: Diameter: None imaged Reflux: NA DUPLICATED LATERAL GREAT SAPHENOUS VEIN: Diameter: 0.4 cm. Reflux: NA SMALL SAPHENOUS VEIN: Saphenopopliteal Junction: 0.4 cm; Reflux: 0 ms Proximal: 0.2 cm; Reflux: More than 2428 ms Distal: 0.2 cm; Reflux: More than 2416 ms VEIN OF GIACOMINI: Size: 0.2 cm. Reflux: NA PERFORATORS: Location: Small saphenous vein distal segment and mid thigh and midcalf. Size: 0.2 cm. Reflux: NA VARICOSITIES: Location: None Imaged Size: NA Reflux: NA US/US venous duplex LE BI IMPRESSION: Right: Venous insufficiency, great saphenous vein through the proximal thigh to the ankle. Venous insufficiency small saphenous vein in the mid to distal calf. Perforators in the small saphenous vein mid segment with reflux. Varices with reflux in the proximal calf. Left: Venous insufficiency, great saphenous vein above and at the knee and at the ankle. Venous insufficiency, small saphenous vein in the mid to distal calf. Perforators without reflux. Electronically signed by: Terrance Shelton MD 07/31/2024 12:34 PM EDT
--- OUTSIDE RECORDS SUMMARY | 2024-07-31 12:10 | XMS_ITS | Clinical Summary ---
Author Organization [facility] it Address [address] [place] [address] Care Team Providers Care Atomic Process Engineer Name Role Phone Gemini Larson NP Primary Care Provider [phone] Immunizations Name Administration Dates Next Due Moderna [...] Procedure Name Priority Date/Time Associated Diagnosis Comments [facility] SCREENING DIGITAL Routine 12/13/2023 3:02 PM EDT Encounter for screening mammogram for malignant neoplasm of breast from Last 3 Months or Most Recently Relevant to Health Maintenance Results * TESS SCREENING DIGITAL (12/13/2023 3:02 PM EDT) Anatomical Region Laterality Modality Mammography 12/13/2023 1:29 PM EDT Narrative 12/13/2023 3:02 PM EDT [facility] Diagnostic Imaging Department [address] [place] [id number] Patient: ??VELASQUEZ,ABBIE E ?/Age/Sex: 1975 - 48 - F Unit#: ??[id number] ? Location/Status: ??SPDIMAM/REG CLI ? Mnemonic/Ordering Site: ??DIGSC/SPMAM Ordering Physician: ??CAYLA CUNNINGHAM [facility] Screening Digital - 12/13/23 - 1403 Report Status:Signed EXAM: [facility] Screening Digital EXAM DATE AND TIME: 12/13/2023 2:03 PM HISTORY: ??Screening. COMPARISON: ??11/02/22, 06/07/21, 07/20/19 TECHNIQUE: Bilateral digital breast tomosynthesis was performed in the CC and MLO projections. Computer aided detection with [employer] 3D 3.1 was employed. TISSUE DENSITY: b. [...] Procedure Note Maribel Doyle MD - 02/26/2024 [facility] Diagnostic Imaging Department [address] [place] [address] Patient: ABBIE VELASQUEZ /Age/Sex: 1975 - 48 - F Unit#: [id number] Location/Status: [facility] CLI Mnemonic/Ordering Site: [facility] Ordering Physician: CAYLA CUNNINGHAM [facility] Screening Digital - 12/13/23 - 1403 Report Status:Signed EXAM: [facility] Screening Digital EXAM DATE AND TIME: 12/13/2023 2:03 PM HISTORY: Screening. COMPARISON: 11/02/22, 06/07/21, 07/20/19 TECHNIQUE: Bilateral digital breast tomosynthesis was performed in the CCand MLO projections. Computer aided detection with Room [employer] 3D 3.1was employed. TISSUE DENSITY: b. There [...] Recently Relevant to Health Maintenance Care Teams Atomic Process Engineer Relationship Specialty Start Date End Date Gemini Larson NP [address] [place] [address] PCP - General 06/06/21
--- OUTSIDE RECORDS SUMMARY | 2024-07-31 12:11 | XMS_ITS ---
Author Organization [facility] Address [address] [id number] Care Team Providers Care Metal Bonder Name Role Phone MECHE AREVALO Unavailable [phone] Allergies Allergen (clinical drug ingredient) Drug/Non Drug Allergy documented on EMR Reaction Allergy Type Onset Date Status Mold Unknown Allergy Active Rodents Unknown Allergy Active Horses Unknown Allergy Active Results Component Value Reference Range Notes THINPREP PAP TEST, Cervix Reviewed date:05/19/2024 05:00:58 PM Interpretation:NIL Performing Lab:[facility], [address] [facility], [place], [address] Varinder Paniagua DO Notes/Report: THINPREP PAP TEST NEGATIVE NEGATIVE -- THIN PREP PAP TEST -- SEX: F : 1975 AGE: 49 [id number] CLINIC ID: [id number] SS: PHYSICIAN: MECHE AREVALO TAMPING MACHINE OPERATOR COLLECTED BY: ____ Negative for Intraepithelial Lesion or Malignancy ____ Additional Findings: Endocervical Material Present Specimen Adequacy: Satisfactory for Evaluation Previous History: September 2015 Negative HPV(Neg) Clinical Note: HPV NsdkdnoT28.419 Encounter for gynecological examination (general) (routine) without abnormal wegirrcmM45.51 Encounter for screening for human papillomavirus (HPV)Z11.3 Encounter for screening for infections with a predominantly sexual mode of transmission, LMP 04/02/2024 Specimen Source: Cervix Visit Type: Routine Performed by: BRYON Curtis (ASCP) (Electronic Signature 05/18/2024 23:44) APTIMA COMBO 2 CT/NG, Cervix Reviewed date:05/18/2024 03:51:57 PM Interpretation:Negative Performing Lab:[facility], [place], [address] Varinder Paniagua DO Notes/Report: GONORRHEA, AMPLIFIED NEGATIVE NEGATIVE CHLAMYDIA, AMPLIFIED NEGATIVE NEGATIVE DNA Test Results SEX: F : 1975 AGE: 49 [id number] CLINIC ID: [id number] SS: PHYSICIAN: MECHE AREVALO TAMPING MACHINE OPERATOR COLLECTED BY: [id number] ____ Specimen Source: Cervix Specimen Type: ThinPrep PAP Correlating Pap: [id number] Neisseria gonorrhoeae: NEGATIVE Normal Value: Negative Chlamydia trachomatis: NEGATIVE Normal Value: Negative HPV HIGH RISK, Cervix Reviewed date:05/19/2024 10:12:36 AM Interpretation:Negative Performing Lab:[facility], [place], [place], [address] Varinder Paniagua DO Notes/Report: HPV HIGH RISK NEGATIVE NEGATIVE HPV High Risk DNA Probe Assay SEX: F : 1975 AGE: 49 [id number] CLINIC ID: [id number] SS: PHYSICIAN: MECHE AREVALO TAMPING MACHINE OPERATOR COLLECTED BY: ____ Specimen Source: Cervix Specimen Type: ThinPrep Pap Correlating Pap: [id number] Additional High Risk Subtypes* NEGATIVE * Includes [...] 05/12/2024 Encounters Encounter Location Date Provider Diagnosis [facility] [address] [place] [address] [address] [place], [place] [id number] 05/12/2024 MECHE AREVALO Encounter for gynecological examination [...] to date with mammo, had done at [facility], normal as per clt. Discussed perimenopause, clt [...] to date with mammo, had done at [facility], normal as per clt. Discussed perimenopause, clt [...] * VELASQUEZ, BelindaopalDOB:1975 ( 49 yo F)Acc No.[id number]:05/12/2024 Progress Notes Patient:?Abbie VELASQUEZ Provider:?Meche Arevalo NP :1975???Age:49 Y???Sex:Female D ate:05/12/2024 Address:[address] [place] [id number] Subjective: * Chief Complaints: * ???Annual Exam [...] * ROS:?see HPI. * Medical History:? * Tactical Response Group Officer History:? control:?Nexplanon, hormonal intrauterine device (expelled x3).?Last mammogram date:?2016 normal per [id number] BIRADS 2 benign, dense BR.?Last pap smear [...] Ht-cm: 162.56, Wt-k.1. * Examination: ???Genitourinary: ?EXTERNAL GENITALIA:?External Genitalia:?normal, no lesions ?VAGINA:?Vagina:?normal appearance, no abnormal discharge, no lesions ?URETHRAL MEATUS:?Urethral Meatus:?normal ?CERVIX:?Cervix:?no lesions, Pap done, friability present ?ANUS AND PERINEUM:?Anus/Perineum:?visually normal?General Exam: ?CONSTITUTIONAL:?General Appearance:?alert, in no acute distress ?NECK/THYROID:?Inspection/Palpation:?normal ?Thyroid:?normal size and shape ?RESPIRATORY:?Auscultation:?clear to auscultation bilaterally ?Respiratory Effort:?normal ?CARDIOVASCULAR:?Auscultation:?regular rate and rhythm ?BREAST, Right:?Inspection/Palpation:?no discharge, no masses present, no nipple retraction, no skin changes, no skin dimpling, no tenderness, no lymphadenopathy, no axillary mass, no axillary tenderness ?BREAST, Left:?Inspection/Palpation:?no discharge, no masses present, no nipple retraction, no skin changes, no skin dimpling, no tenderness, no lymphadenopathy, no axillary mass, no axillary tenderness ?GASTROINTESTINAL:?Abdomen:?no masses, nontender, nondistended ?SKIN:?Skin:?no suspicious lesions, warm and dry ?NEURO/PSYCH:?Orientation:?time , place, person ?Mood/Affect:?normal??? Assessment: * Assessment: 1.?Encounter for gynecologic al [...] Time - 05/12/2024 09:39 AM) * Procedure Codes:?05334 Chlam ydia - Amplified [id number] Gonorrhea - Amplified [id number] HPV Pap * Follow Up:?1 Year * Billing Information: * Visit Code:? 69112 Existing Preventative - Age 40-64 (IN USE). * Procedure Codes:? 11077 Chlamydia - Amplified probe. 89283 Gonorrhea - Amplified probe. 33605 HPV Pap. * Sign off status: Completed true * Provider:?Meche Arevalo NP Date:? 024 Generated for Gracei ng/Felipa/Melitting on:?07/31/2024 12:10 PM EDT History and Physical Notes * HPI (History [...]
--- OUTSIDE RECORDS SUMMARY | 2024-07-31 12:11 | XMS_ITS | Patient Health Record ---
Author Organization [facility] Address [address] [id number] Care Team Providers Care Elevator Examiner And Adjuster Name Role Phone SHANICE LINCOLN Unavailable [phone] Allergies Allergen (clinical drug ingredient) Drug/Non Drug Allergy documented on EMR Reaction Allergy Type Onset Date Status Mold Unknown Allergy Active Rodents Unknown Allergy Active Horses Unknown Allergy Active Results Component Value Reference Range Notes THINPREP PAP TEST, Cervix Reviewed date:05/19/2024 05:00:58 PM Interpretation:NIL Performing Lab:[facility], [address] [facility], [place], [address] Varinder Paniagua DO Notes/Report: THINPREP PAP TEST NEGATIVE NEGATIVE -- THIN PREP PAP TEST -- SEX: F : 1975 AGE: 49 [id number] CLINIC ID: [id number] SS: PHYSICIAN: SHANICE LINCOLN LIME SPREADER COLLECTED BY: ____ Negative for Intraepithelial Lesion or Malignancy ____ Additional Findings: Endocervical Material Present Specimen Adequacy: Satisfactory for Evaluation Previous History: September 2015 Negative HPV(Neg) Clinical Note: HPV LnzfkyuV39.419 Encounter for gynecological examination (general) (routine) without abnormal xbjopanpP98.51 Encounter for screening for human papillomavirus (HPV)Z11.3 Encounter for screening for infections with a predominantly sexual mode of transmission, LMP 04/02/2024 Specimen Source: Cervix Visit Type: Routine Performed by: BRYON Curtis (ASCP) (Electronic Signature 05/18/2024 23:44) APTIMA COMBO 2 CT/NG, Cervix Reviewed date:05/18/2024 03:51:57 PM Interpretation:Negative Performing Lab:[facility], [email or web address], [place], [address] Varinder Paniagua DO Notes/Report: GONORRHEA, AMPLIFIED NEGATIVE NEGATIVE CHLAMYDIA, AMPLIFIED NEGATIVE NEGATIVE DNA Test Results SEX: F : 1975 AGE: 49 [id number] CLINIC ID: [id number] SS: PHYSICIAN: SHANICE LINCOLN LIME SPREADER COLLECTED BY: [id number] ____ Specimen Source: Cervix Specimen Type: ThinPrep PAP Correlating Pap: [id number] Neisseria gonorrhoeae: NEGATIVE Normal Value: Negative Chlamydia trachomatis: NEGATIVE Normal Value: Negative HPV HIGH RISK, Cervix Reviewed date:05/19/2024 10:12:36 AM Interpretation:Negative Performing Lab:[facility], [email or web address], [place], [address] Varinder Paniagua DO Notes/Report: HPV HIGH RISK NEGATIVE NEGATIVE HPV High Risk DNA Probe Assay SEX: F : 1975 AGE: 49 [id number] CLINIC ID: [id number] SS: PHYSICIAN: SHANICE LINCOLN LIME SPREADER COLLECTED BY: ____ Specimen Source: Cervix Specimen Type: ThinPrep Pap Correlating Pap: [id number] Additional High Risk Subtypes* NEGATIVE * Includes [...] 05/12/2024 Encounters Encounter Location Date Provider Diagnosis [facility] [address] [place] [address] [address] [place], [place] [id number] 05/12/2024 SHANICE LINCOLN Encounter for gynecological examination [...] to date with mammo, had done at [facility], normal as per clt. Discussed perimenopause, [...] Insured Coverage Start Date Coverage End Date [place] ATT CLAIMS [address] [place] [id number] Abbie Velasquez Self - patient is the [...]
--- OUTSIDE RECORDS SUMMARY | 2024-07-31 12:11 | XMS_ITS | Clinical Summary ---
Author Organization [facility] Address [address] [place] [address] Care Team Providers Care Travel Assistant Name Role Phone Unavailable Primary Care Provider [...] 2 diabetes mellitus with hyperglycemia ([facility]) 9 Active topiramate (TOPAMAX) 50 mg tabletIndications :Chronic tension-type headache, not intractable topiramate 50 mg tablet Active lancets (FREESTYLE LANCETS) 28 gaugeIndications: Uncontrolled type 2 diabetes mellitus with hyperglycemia ([facility]) Order Freestyle lancets, check sugar daily. Dx: E11.65. 100 Each 2 9 Active blood-glucose meter monitoring kitIndications:Ty pe 2 diabetes mellitus without complication, without long-term current use of insulin ([facility]) as needed for blood glucose monitoring Order Free style lite. Check sugar daily. Dx; E11.65 1 Each 9 Active traMADoL (ULTRAM) 50 mg tabletIndications :Chronic bilateral low back pain without sciatica Take 1 Tab by mouth once daily as needed for pain 30 Tab 0 Active naloxone (NARCAN) 4 mg/actuation nasal sprayIndications: Chronic bilateral low back pain without sciatica Place 1 [place] into the nostril(s) as needed for opioid [...] Overview (04/08/2019): 02/19/2019: Echo: 45-50%. Done by [facility] cardio. Influenza vaccine refused 04/08/2019 Vitamin D deficiency 04/08/2019 Chronic bilateral low back p ain without sciatica: Sees Pain at [facility] 04/08/2019 Overview (07/11/2019): Saw Pain at [facility]: 07/01/2019: offered injections and PT. Menorrhagia 03/06/2019 Dysmenorrhea 03/06/2019 Fibromyalgia Diabetes mellitus type 2, uncomplicated ([facility] ) Chronic headache Overview (04/14/2020): 03/27/2020: Roro: [...] 08/18/2020, 0 08/18/2020, 03/06/2019, Additional history exists [id number]-[id number]-27 ( season) 2024 05/24/2021, 08/20/2020, 07/22/2020 Imm-Influenza [...] long-term current use of insulin ([facility]) LIPID PANEL Routine 08/18/2020 10:10 AM EDT Type 2 diabetes mellitus without complication, without long-term current use of insulin ([facility]) Hyperlipidemia LDL goal <70 ANTIBODY HIV-1&HIV-2 SINGLE RESULT Routine 03/06/2019 11:32 AM EDT Uncontrolled type 2 diabetes mellitus with hyperglycemia ([facility]) from Last 3 Months or Most Recently Relevant to Health Maintenance Results * HISTORIC MAMMOGRAM (06/07/2021 3:00 AM EST) 06/07/2021 3:00 AM EST [facility] IM MAMMO Edited Result - Final * COMPRE METAB PANEL (08/18/2020 10:10 AM EDT) GLUCOSE 88 65 - 99 mg/dL [facility] Comment: ?Fasting reference interval UREA NITROGEN (BUN) 15 7 - 25 mg/dL [facility] CREATININE (blood) 0.65 0.50 - 1.10 mg/dL [facility] GFR ESTIMATED 106 > OR = 60 mL/min/1 .73m2 [facility] EGFR 123 > OR = 60 mL/min/1 .73m2 [facility] BUN/CREATININE RATIO NOT APPLICABLE 6 - 22 [facility] SODIUM 137 135 - 146 mmol/L [facility] POTASSIUM 4.3 3.5 - 5.3 mmol/L [facility] CHLORIDE 103 98 - 110 mmol/L [facility] CARBON DIOXIDE 29 20 - 32 mmol/L [facility] [employer] [facility] CALCIUM 9.2 8.6 - 10.2 mg/dL [facility] PROTEIN, TOTAL 6.7 6.1 - 8.1 g/dL [facility] ALBUMIN 4.2 3.6 - 5.1 g/dL [facility] GLOBULIN 2.5 1.9 - 3.7 g/dL (calc) [facility] ALBUMIN/GLOBUL IN RATIO 1.7 1.0 - 2.5 (calc) [facility] BILIRUBIN, TOTAL 0.4 0.2 - 1.2 mg/dL [facility] ALKALINE PHOSPHATASE 63 31 - 125 U/L [facility] AST 16 10 - 35 U/L [email or web address] ALT 10 6 - 29 U/L [facility] Blood Blood / Unknown 08/18/2020 1 0:10 AM EDT 08/18/2020 10:10 AM EDT Narrative [facility] - 08/18/2020 8:09 PM EDT FASTING:YES [facility] - BLOOD DRAW Final Result [facility] [address] [address], [facility] [address] [address] * HIV-1 & HIV-2 ANTIBODIES (03/06/2019 11:32 AM EDT) [facility] HIV 1 AND 2 ANTIBODY SCREEN NEGATIVE NEGATIVE [facility] Comment: This assay is a 4th generation [...] AM EDT 03/06/2019 11:47 AM EDT [facility] - 03/06/2019 4:45 PM EDT [employer], [place] [address] Aerosol Line Operator - Rayna Masters MD PT ID [id number] ORD# [id number] [facility] - BLOOD DRAW Final Result [facility] [address], from Last 3 Months or Most Recently Relevant to Health Maintenance Insurance [employer]
== END 2024-07-31 10:16 | disposition home or self-care (01) ==
LOC: HO.US 10:15
PROVIDERS: PCP Physician Assistant Medical; Visit Provider Surgery Vascular Surgery
DX: I83.11 Varicose veins of right lower extremity with inflammation (principal)
CPT/HCPCS: 93970

== ENCOUNTER → 2024-07-31 10:16 | Outpatient (BNV) | payer OTHER, SELFPAY | PROVIDERS: PCP Physician Assistant Medical; Visit Provider Radiology Diagnostic Radiology | DX: I87.2 Venous insufficiency (chronic) (peripheral) (principal) | CPT/HCPCS: 93970 ==

== ENCOUNTER 2024-08-06 11:01 | Outpatient (AMB) | payer OTHER, SELFPAY ==
--- NOTE | 2024-08-06 11:04 | MHC.OFFVIS ---
Intake Visit Reasons: follow up s/p US 07/31/24 Intake Note: Patient here for follow up 07/31/24. Accompanied by: Self / Same As Patient Allergies morphine [MORPHINE] Allergy (Unknown, Verified 08/06/24 11:05) RESP DEPRESSION Morphine Allergy (Unknown, Uncoded 03/23/24 13:44) shortness of breath [facility] HPI follow up s/p 07/31/24: Details: The patient is a 49-year-old female presenting with right leg pain related to venous insufficiency. She describes the right leg discomfort as more severe than the left. Her symptoms are exacerbated by standing for more than approximately 10 minutes, leading to throbbing pain and functional limitations. Over time, the symptoms have progressed, leading to increased discomfort and reduced functional capacity, prompting her to seek treatment. [facility] Medical History Asthma Surgical History S/P laparoscopic sleeve gastrectomy Overweight Hx laparoscopic cholecystectomy S/P hernia repair S/P tonsillectomy and adenoidectomy Family History Father No problems noted. Mother No problems noted. Brother HTN (hypertension) Arthritis Depression Hyperlipidemia Brother No problems noted. Brother No problems noted. Sister No problems noted. Sister No problems noted. Son No problems noted. Son No problems noted. Daughter No problems noted. Daughter No problems noted. Daughter No problems noted. Social History Alcohol intake: never Patient Tobacco Use Status: Never used Tobacco Review of Systems Const Reports as per HPI ENT Reports no additional complaints Card Denies chest pain, Denies chest pain at rest and Denies chest pain with activity Resp Denies chest congestion and Denies cough GI Reports no additional complaints Musc Details: pain over varicosities, aching of lower extremities, swelling, cramping, heaviness and tiredness, itching Denies abnormal gait Skin/Breast Reports pruritus and Denies wounds Neuro Reports no additional complaints and Denies abnormal gait Psych Denies no additional complaints Physical Exam Const General: cooperative, healthy appearing and comfortable Orientation/consciousness: oriented to person, oriented to place and oriented to time Neck Carotids: no bruits Chest Chest palpation & inspection: normal inspection of the chest and normal palpation of entire chest wall Resp Effort & Inspection: normal respiratory effort and able to speak in complete sentences Cardio Rate: regular rate Heart sounds: S1 normal heart sound present and S2 normal heart sound present Peripheral pulses: Peripheral pulses 2+ throughout GI Inspection: Yes normal to inspection Skin Other: +2 edema, large rope-like varicosities greater than 4 mm CEAP Classification C4 - skin color changes Ep - Etiology Primary As - superficial veins P - reflux General skin exam: dry skin Neuro General: oriented to person, oriented to place and oriented to time Extrem Right lower extremity: full ROM, normal capillary refill and edema Left lower extremity: full ROM, normal capillary refill and edema Psych Mental Status: mental status grossly normal Results Reviewed Results Reviewed: Brief summary of venous insufficiency testing is as follows: right great saphenous vein: Positive right small saphenous vein: Positive right accessory vein: none present left great saphenous vein: negative left small saphenous vein: Positive left accessory vein: none present Please note there is no evidence of any venous aneurysms or significant tortuosity Assessment & Plan Assessment & Plan (1) Varicose veins of right lower extremity with inflammation: Code(s): I83.11 - Varicose veins of right lower extremity with inflammation Category: Medical Plan: This patient has varicose veins with inflammation. They continue to be a source of discomfort for the patient. The patient has tried conservative treatment with compression, leg elevation and exercise program for over 3 months time. They have been compliant with all treatment. This has provided minimal relief for the patient. I do not anticipate this course of treatment will alter the underlying etiology. The patient has been scheduled for lower extremity venous treatment inclusive of --- right great saphenous vein Cyanoacralate ablation. Risks, benefits, and complications of this procedure has been discussed in detail with the patient including but not limited to bleeding, infection, and the development of a DVT. The patient has demonstrated a clear understanding and has consented. We will schedule the patient as soon as possible. Thank you for allowing us to participate in this patient's care. If there are any questions or concerns please do not hesitate to contact us. Coding Level of Care Code Est Pt Level 4 (96833) Diagnoses Varicose veins of right lower extremity with inflammation I83.11
--- OUTSIDE RECORDS SUMMARY | 2024-08-06 14:35 | XMS_ITS | Clinical Summary ---
Author Organization [facility] it Address [address] [place] [address] Care Team Providers Care Machine Load Clerk Name Role Phone Gemini Larson NP Primary Care Provider [phone] Immunizations Name Administration Dates Next Due Moderna [...] Procedure Name Priority Date/Time Associated Diagnosis Comments [facility] SCREENING DIGITAL Routine 12/13/2023 3:02 PM EDT Encounter for screening mammogram for malignant neoplasm of breast from Last 3 Months or Most Recently Relevant to Health Maintenance Results * TESS SCREENING DIGITAL (12/13/2023 3:02 PM EDT) Anatomical Region Laterality Modality Mammography 12/13/2023 1:29 PM EDT Narrative 12/13/2023 3:02 PM EDT [facility] Diagnostic Imaging Department [address] [place] [address] Patient: ??VELASQUEZ,ABBIE E ?/Age/Sex: 1975 - 48 - F Unit#: ??[id number] ? Location/Status: ??SPDIMAM/REG CLI ? Mnemonic/Ordering Site: ??DIGSC/SPMAM Ordering Physician: ??CAYLA CUNNINGHAM [facility] Screening Digital - 12/13/23 - 1403 Report Status:Signed EXAM: [facility] Screening Digital EXAM DATE AND TIME: 12/13/2023 2:03 PM HISTORY: ??Screening. COMPARISON: ??11/02/22, 06/07/21, 07/20/19 TECHNIQUE: Bilateral digital breast tomosynthesis was performed in the CC and MLO projections. Computer aided detection with its learning 3D 3.1 was employed. TISSUE DENSITY: b. [...] Procedure Note Maribel Doyle MD - 02/26/2024 [facility] Diagnostic Imaging Department [address] [place] [address] Patient: ABBIE VELASQUEZ /Age/Sex: 1975 - 48 - F Unit#: [id number] Location/Status: [facility] CLI Mnemonic/Ordering Site: [facility] Ordering Physician: CAYLA CUNNINGHAM [facility] Screening Digital - 12/13/23 - 1403 Report Status:Signed EXAM: [facility] Screening Digital EXAM DATE AND TIME: 12/13/2023 2:03 PM HISTORY: Screening. COMPARISON: 11/02/22, 06/07/21, 07/20/19 TECHNIQUE: Bilateral digital breast tomosynthesis was performed in the CCand MLO projections. Computer aided detection with its learning 3D 3.1was employed. TISSUE DENSITY: b. There [...] Recently Relevant to Health Maintenance Care Teams Machine Load Clerk Relationship Specialty Start Date End Date Gemini Larson NP [address] [place] [address] PCP - General 06/06/21
--- OUTSIDE RECORDS SUMMARY | 2024-08-06 14:35 | XMS_ITS ---
Author Organization [facility] Address [address] [id number] Care Team Providers Care Sole Rougher Name Role Phone MECHE AREVALO Unavailable [phone] Allergies Allergen (clinical drug ingredient) Drug/Non Drug Allergy documented on EMR Reaction Allergy Type Onset Date Status Mold Unknown Allergy Active Rodents Unknown Allergy Active Horses Unknown Allergy Active Results Component Value Reference Range Notes THINPREP PAP TEST, Cervix Reviewed date:05/19/2024 05:00:58 PM Interpretation:NIL Performing Lab:[facility], [address] [facility], [place], [address] Varinder Paniagua DO Notes/Report: THINPREP PAP TEST NEGATIVE NEGATIVE -- THIN PREP PAP TEST -- SEX: F : 1975 AGE: 49 [id number] CLINIC ID: [id number] SS: PHYSICIAN: MECHE AREVALO WAD LUBRICATOR COLLECTED BY: ____ Negative for Intraepithelial Lesion or Malignancy ____ Additional Findings: Endocervical Material Present Specimen Adequacy: Satisfactory for Evaluation Previous History: September 2015 Negative HPV(Neg) Clinical Note: HPV XmnndseB23.419 Encounter for gynecological examination (general) (routine) without abnormal gzqepvdnR04.51 Encounter for screening for human papillomavirus (HPV)Z11.3 Encounter for screening for infections with a predominantly sexual mode of transmission, LMP 04/02/2024 Specimen Source: Cervix Visit Type: Routine Performed by: BRYON Curtis (ASCP) (Electronic Signature 05/18/2024 23:44) APTIMA COMBO 2 CT/NG, Cervix Reviewed date:05/18/2024 03:51:57 PM Interpretation:Negative Performing Lab:[facility], [place], [address] Varinder Paniagua DO Notes/Report: GONORRHEA, AMPLIFIED NEGATIVE NEGATIVE CHLAMYDIA, AMPLIFIED NEGATIVE NEGATIVE DNA Test Results SEX: F : 1975 AGE: 49 [id number] CLINIC ID: [id number] SS: PHYSICIAN: MECHE AREVALO WAD LUBRICATOR COLLECTED BY: [id number] ____ Specimen Source: Cervix Specimen Type: ThinPrep PAP Correlating Pap: [id number] Neisseria gonorrhoeae: NEGATIVE Normal Value: Negative Chlamydia trachomatis: NEGATIVE Normal Value: Negative HPV HIGH RISK, Cervix Reviewed date:05/19/2024 10:12:36 AM Interpretation:Negative Performing Lab:[facility], [employer], [place], [address] Varinder Paniagua DO Notes/Report: HPV HIGH RISK NEGATIVE NEGATIVE HPV High Risk DNA Probe Assay SEX: F : 1975 AGE: 49 [id number] CLINIC ID: [id number] SS: PHYSICIAN: MECHE AREVALO WAD LUBRICATOR COLLECTED BY: ____ Specimen Source: Cervix Specimen Type: ThinPrep Pap Correlating Pap: [id number] Additional High Risk Subtypes* NEGATIVE * Includes [...] 05/12/2024 Encounters Encounter Location Date Provider Diagnosis [facility] [address] [place] [address] [address] [place], [place] [phone] 05/12/2024 MECHE AREVALO Encounter for gynecological examination [...] to date with mammo, had done at [facility], normal as per clt. Discussed perimenopause, [...] to date with mammo, had done at [facility], normal as per clt. Discussed perimenopause, [...] * VELASQUEZ, BelindaopalDOB:1975 ( 49 yo F)Acc No.[id number]:05/12/2024 Progress Notes Patient:?Abbie VELASQUEZ Provider:?Meche Arevalo NP :1975???Age:49 Y???Sex:Female D ate:05/12/2024 Address:[address] [place] [id number] Subjective: * Chief Complaints: * ???Annual Exam [...] * ROS:?see HPI. * Medical History:? 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 control:?Nexplanon, hormonal intrauterine device (expelled x3).?Last mammogram date:?2016 normal per [id number] BIRADS 2 benign, dense BR.?Last pap smear [...] Time - 05/12/2024 09:39 AM) * Procedure Codes:?57784 Chlam ydia - Amplified [id number] Gonorrhea - Amplified [id number] HPV Pap * Follow Up:?1 Year * Billing Information: * Visit Code:? 65949 Existing Preventative - Age 40-64 (IN USE). * Procedure Codes:? 47086 Chlamydia - Amplified probe. 08211 Gonorrhea - Amplified probe. 29626 HPV Pap. * Sign off status: Completed true * Provider:?Meche Arevalo NP Date:? 024 Generated for Gracei ng/Felipa/Melitting on:?08/06/2024 02:35 PM EDT History and Physical Notes * [...]
--- OUTSIDE RECORDS SUMMARY | 2024-08-06 14:37 | XMS_ITS | Patient Health Record ---
Author Organization [facility] Address [address] [phone] Care Team Providers Care Services Program Manager Name Role Phone SHANICE LINCOLN Unavailable [phone] Allergies Allergen (clinical drug ingredient) Drug/Non Drug Allergy documented on EMR Reaction Allergy Type Onset Date Status Mold Unknown Allergy Active Rodents Unknown Allergy Active Horses Unknown Allergy Active Results Component Value Reference Range Notes THINPREP PAP TEST, Cervix Reviewed date:05/19/2024 05:00:58 PM Interpretation:NIL Performing Lab:[facility], [address] [facility], [place], [address] Varinder Paniagua DO Notes/Report: THINPREP PAP TEST NEGATIVE NEGATIVE -- THIN PREP PAP TEST -- SEX: F : 1975 AGE: 49 [id number] CLINIC ID: [id number] SS: PHYSICIAN: SHANICE LINCOLN PARTNER MARKETING MANAGER COLLECTED BY: ____ Negative for Intraepithelial Lesion or Malignancy ____ Additional Findings: Endocervical Material Present Specimen Adequacy: Satisfactory for Evaluation Previous History: September 2015 Negative HPV(Neg) Clinical Note: HPV WhrqcjxR52.419 Encounter for gynecological examination (general) (routine) without abnormal ezgdssygX31.51 Encounter for screening for human papillomavirus (HPV)Z11.3 Encounter for screening for infections with a predominantly sexual mode of transmission, LMP 04/02/2024 Specimen Source: Cervix Visit Type: Routine Performed by: BRYON Curtis (ASCP) (Electronic Signature 05/18/2024 23:44) APTIMA COMBO 2 CT/NG, Cervix Reviewed date:05/18/2024 03:51:57 PM Interpretation:Negative Performing Lab:[facility], [employer] [facility] [employer], [place], [address] Varinder Paniagua DO Notes/Report: GONORRHEA, AMPLIFIED NEGATIVE NEGATIVE CHLAMYDIA, AMPLIFIED NEGATIVE NEGATIVE DNA Test Results SEX: F : 1975 AGE: 49 [id number] CLINIC ID: [id number] SS: PHYSICIAN: SHANICE LINCOLN PARTNER MARKETING MANAGER COLLECTED BY: [id number] ____ Specimen Source: Cervix Specimen Type: ThinPrep PAP Correlating Pap: [id number] Neisseria gonorrhoeae: NEGATIVE Normal Value: Negative Chlamydia trachomatis: NEGATIVE Normal Value: Negative HPV HIGH RISK, Cervix Reviewed date:05/19/2024 10:12:36 AM Interpretation:Negative Performing Lab:[facility], [facility], [place], [address] Varinder Paniagua DO Notes/Report: HPV HIGH RISK NEGATIVE NEGATIVE HPV High Risk DNA Probe Assay SEX: F : 1975 AGE: 49 [id number] CLINIC ID: [id number] SS: PHYSICIAN: SHANICE LINCOLN PARTNER MARKETING MANAGER COLLECTED BY: ____ Specimen Source: Cervix Specimen Type: ThinPrep Pap Correlating Pap: [id number] Additional High Risk Subtypes* NEGATIVE * Includes [...] 05/12/2024 Encounters Encounter Location Date Provider Diagnosis [facility] [address] [place] [address] [address] [place], [place] [phone] 05/12/2024 SHANICE LINCOLN Encounter for gynecological examination [...] done at [facility], normal as per clt. Discussed perimenopause, clt [...] Insured Coverage Start Date Coverage End Date [place] MEDICAID ATT CLAIMS [address] [place] [address] [id number] Abbie Velasquez Self - patient is the [...]
== END 2024-08-06 11:30 | disposition home or self-care (01) ==
LOC: HO.HVS 11:02
PROVIDERS: PCP Physician Assistant Medical; Visit Provider Surgery Vascular Surgery
DX: I83.11 Varicose veins of right lower extremity with inflammation (principal)
CPT/HCPCS: 99214

== ENCOUNTER → 2024-08-06 11:01 | Outpatient (BNVA) | payer OTHER, SELFPAY | PROVIDERS: PCP Physician Assistant Medical; Visit Provider Surgery Vascular Surgery | DX: I83.11 Varicose veins of right lower extremity with inflammation (principal) | CPT/HCPCS: 99212 ==

== ENCOUNTER 2024-09-11 08:14 | Outpatient (AMB) | payer OTHER, SELFPAY ==
--- OUTSIDE RECORDS SUMMARY | 2024-09-11 08:23 | XMS_ITS ---
Author Organization [facility] Address [address] [phone] Care Team Providers Care Dinkey Operator Slag Name Role Phone MECHE AREVALO Unavailable [phone] Allergies Allergen (clinical drug ingredient) Drug/Non Drug Allergy documented on EMR Reaction Allergy Type Onset Date Status Mold Unknown Allergy Active Rodents Unknown Allergy Active Horses Unknown Allergy Active Results Component Value Reference Range Notes THINPREP PAP TEST, Cervix Reviewed date:05/19/2024 05:00:58 PM Interpretation:NIL Performing Lab:[facility], [address] [facility], [place], [address] Varinder Paniagua DO Notes/Report: THINPREP PAP TEST NEGATIVE NEGATIVE -- THIN PREP PAP TEST -- SEX: F : 1975 AGE: 49 [id number] CLINIC ID: [id number] SS: PHYSICIAN: MECHE AREVALO SEAM STAY STITCHER COLLECTED BY: ____ Negative for Intraepithelial Lesion or Malignancy ____ Additional Findings: Endocervical Material Present Specimen Adequacy: Satisfactory for Evaluation Previous History: September 2015 Negative HPV(Neg) Clinical Note: HPV UiwlqtjJ96.419 Encounter for gynecological examination (general) (routine) without abnormal gmhttzpbO27.51 Encounter for screening for human papillomavirus (HPV)Z11.3 Encounter for screening for infections with a predominantly sexual mode of transmission, LMP 04/02/2024 Specimen Source: Cervix Visit Type: Routine Performed by: BRYON Curtis (ASCP) (Electronic Signature 05/18/2024 23:44) APTIMA COMBO 2 CT/NG, Cervix Reviewed date:05/18/2024 03:51:57 PM Interpretation:Negative Performing Lab:[facility], [place] [address] Varinder Paniagua DO Notes/Report: GONORRHEA, AMPLIFIED NEGATIVE NEGATIVE CHLAMYDIA, AMPLIFIED NEGATIVE NEGATIVE DNA Test Results SEX: F : 1975 AGE: 49 [id number] CLINIC ID: [id number] SS: PHYSICIAN: MECHE AREVALO SEAM STAY STITCHER COLLECTED BY: [id number] ____ Specimen Source: Cervix Specimen Type: ThinPrep PAP Correlating Pap: [id number] Neisseria gonorrhoeae: NEGATIVE Normal Value: Negative Chlamydia trachomatis: NEGATIVE Normal Value: Negative HPV HIGH RISK, Cervix Reviewed date:05/19/2024 10:12:36 AM Interpretation:Negative Performing Lab:[facility], [facility] [facility], [place], [address] Varinder Paniagua DO Notes/Report: HPV HIGH RISK NEGATIVE NEGATIVE HPV High Risk DNA Probe Assay SEX: F : 1975 AGE: 49 [id number] CLINIC ID: [id number] SS: PHYSICIAN: MECHE AREVALO SEAM STAY STITCHER COLLECTED BY: ____ Specimen Source: Cervix Specimen Type: ThinPrep Pap Correlating Pap: [id number] Additional High Risk Subtypes* NEGATIVE * Includes [...] 05/12/2024 Encounters Encounter Location Date Provider Diagnosis [facility] [address] [place] [address] [address] [place], [place] [phone] 05/12/2024 MECHE AREVALO Encounter for gynecological examination [...] to date with mammo, had done at [facility], normal as per clt. Discussed perimenopause, [...] to date with mammo, had done at [facility], normal as per clt. Discussed perimenopause, [...] * VELASQUEZ, BelindaopalDOB:1975 ( 49 yo F)Acc No.[id number]:05/12/2024 Progress Notes Patient:?Abbie VELASQUEZ Provider:?Meche Arevalo NP :1975???Age:49 Y???Sex:Female D ate:05/12/2024 Address:[address] [place] [phone] Subjective: * Chief Complaints: * ???Annual Exam [...] * ROS:?see HPI. * Medical History:? 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 control:?Nexplanon, hormonal intrauterine device (expelled x3).?Last mammogram date:?2016 normal per [id number] BIRADS 2 benign, dense BR.?Last pap smear [...] Time - 05/12/2024 09:39 AM) * Procedure Codes:?54637 Chlam ydia - Amplified [id number] Gonorrhea - Amplified [id number] HPV Pap * Follow Up:?1 Year * Billing Information: * Visit Code:? 15419 Existing Preventative - Age 40-64 (IN USE). * Procedure Codes:? 37200 Chlamydia - Amplified probe. 18159 Gonorrhea - Amplified probe. 33074 HPV Pap. * Sign off status: Completed true * Provider:?Meche Arevalo NP Date:? 024 Generated for Gracei singh/Felipa/Melitting on:?09/11/2024 08:23 AM EDT History and Physical Notes * HPI [...]
--- OUTSIDE RECORDS SUMMARY | 2024-09-11 08:24 | XMS_ITS | Patient Health Record ---
Author Organization [facility] Address [address] [phone] Care Team Providers Care Gallery Or Museum Technician Name Role Phone SHANICE LINCOLN Unavailable [phone] Allergies Allergen (clinical drug ingredient) Drug/Non Drug Allergy documented on EMR Reaction Allergy Type Onset Date Status Mold Unknown Allergy Active Rodents Unknown Allergy Active Horses Unknown Allergy Active Results Component Value Reference Range Notes THINPREP PAP TEST, Cervix Reviewed date:05/19/2024 05:00:58 PM Interpretation:NIL Performing Lab:[facility], [address] [facility], [place], [address] Varinder Paniagua DO Notes/Report: THINPREP PAP TEST NEGATIVE NEGATIVE -- THIN PREP PAP TEST -- SEX: F : 1975 AGE: 49 [id number] CLINIC ID: [id number] SS: PHYSICIAN: SHANICE LINCOLN MANAGER HOME IMPROVEMENT COLLECTED BY: ____ Negative for Intraepithelial Lesion or Malignancy ____ Additional Findings: Endocervical Material Present Specimen Adequacy: Satisfactory for Evaluation Previous History: September 2015 Negative HPV(Neg) Clinical Note: HPV CtundzcT42.419 Encounter for gynecological examination (general) (routine) without abnormal hlunvccoY71.51 Encounter for screening for human papillomavirus (HPV)Z11.3 Encounter for screening for infections with a predominantly sexual mode of transmission, LMP 04/02/2024 Specimen Source: Cervix Visit Type: Routine Performed by: BRYON Curtis (ASCP) (Electronic Signature 05/18/2024 23:44) APTIMA COMBO 2 CT/NG, Cervix Reviewed date:05/18/2024 03:51:57 PM Interpretation:Negative Performing Lab:[facility], [employer], [place], [address] Varinder Paniagua DO Notes/Report: GONORRHEA, AMPLIFIED NEGATIVE NEGATIVE CHLAMYDIA, AMPLIFIED NEGATIVE NEGATIVE DNA Test Results SEX: F : 1975 AGE: 49 [id number] CLINIC ID: [id number] SS: PHYSICIAN: SHANICE LINCOLN MANAGER HOME IMPROVEMENT COLLECTED BY: [id number] ____ Specimen Source: Cervix Specimen Type: ThinPrep PAP Correlating Pap: [id number] Neisseria gonorrhoeae: NEGATIVE Normal Value: Negative Chlamydia trachomatis: NEGATIVE Normal Value: Negative HPV HIGH RISK, Cervix Reviewed date:05/19/2024 10:12:36 AM Interpretation:Negative Performing Lab:[facility], [employer], [place], [address] Varinder Paniagua DO Notes/Report: HPV HIGH RISK NEGATIVE NEGATIVE HPV High Risk DNA Probe Assay SEX: F : 1975 AGE: 49 [id number] CLINIC ID: [id number] SS: PHYSICIAN: SHANICE LINCOLN MANAGER HOME IMPROVEMENT COLLECTED BY: ____ Specimen Source: Cervix Specimen Type: ThinPrep Pap Correlating Pap: [id number] Additional High Risk Subtypes* NEGATIVE * Includes [...] 05/12/2024 Encounters Encounter Location Date Provider Diagnosis [facility] [address] [place] [address] [address] [place], [place] [phone] 05/12/2024 SHANICE LINCOLN Encounter for gynecological examination [...] with mammo, had done at [facility], normal as per clt. Discussed perimenopause, [...] Insured Coverage Start Date Coverage End Date [place] MEDICAID ATT CLAIMS [address] [place] [address] [id number] Abbie Velasquez Self - patient is the [...]
--- OUTSIDE RECORDS SUMMARY | 2024-09-11 08:24 | XMS_ITS | Clinical Summary ---
Author Organization [facility] it Address [address] [place] [address] Care Team Providers Care Tool Engineer Name Role Phone Gemini Larson NP Primary Care Provider [phone] Immunizations Name Administration Dates Next Due Moderna [...] Vaccine ( season) 2024 05/24/2021, 08/20/2020, 07/22/2020 Pneumococcal Vaccine: 50+ Years (1 of 1 - PCV) 2024 Zoster Vaccines (1 of 2) 2024 Influenza Vaccine (Season Ended) 2025 Breast Cancer Screening 12/12/2025 12/13/19 24, 11/05/2022, [...] age to complete this topic Meningococcal B Vaccine Aged Out No l onger eligible based on patient's age to complete [...] Procedure Name Priority Date/Time Associated Diagnosis Comments [facility] SCREENING DIGITAL Routine 12/13/2023 3:02 PM EDT Encounter for screening mammogram for malignant neoplasm of breast from Last 3 Months or Most Recently Relevant to Health Maintenance Results * TESS SCREENING DIGITAL (12/13/2023 3:02 PM EDT) Anatomical Region Laterality Modality Mammography 12/13/2023 1:29 PM EDT Narrative 12/13/2023 3:02 PM EDT [facility] Diagnostic Imaging Department [address] [place] [address] Patient: ??TED VELASQUEZZ E ?/Age/Sex: 1975 - 48 - F Unit#: ??[id number] ? Location/Status: ??SPDIMAM/REG CLI ? Mnemonic/Ordering Site: ??DIGSC/SPMAM Ordering Physician: ??CAYLA CUNNINGAHM [facility] Screening Digital - 12/13/23 - 1403 Report Status:Signed EXAM: [facility] Screening Digital EXAM DATE AND TIME: 12/13/2023 2:03 PM HISTORY: ??Screening. COMPARISON: ??11/02/22, 06/07/21, 07/20/19 TECHNIQUE: Bilateral digital breast tomosynthesis was performed in the CC and MLO projections. Computer aided detection with [employer] 3D 3.1 was employed. TISSUE DENSITY: b. [...] Procedure Note Maribel Doyle MD - 02/26/2024 [facility] Diagnostic Imaging Department [address] [place] [address] Patient: ABBIE VELASQUEZ /Age/Sex: 1975 - 48 - F Unit#: [id number] Location/Status: [facility] CLI Mnemonic/Ordering Site: [facility] Ordering Physician: CAYLA CUNNINGHAM [facility] Screening Digital - 12/13/23 - 1403 Report Status:Signed EXAM: [facility] Screening Digital EXAM DATE AND TIME: 12/13/2023 2:03 PM HISTORY: Screening. COMPARISON: 11/02/22, 06/07/21, 07/20/19 TECHNIQUE: Bilateral digital breast tomosynthesis was performed in the CCand MLO projections. Computer aided detection with [employer] 3D 3.1was employed. TISSUE DENSITY: b. There [...] Recently Relevant to Health Maintenance Care Teams Tool Engineer Relationship Specialty Start Date End Date Gemini Larson NP [address] [place] [address] PCP - General 06/06/21
--- NOTE | 2024-09-11 09:41 | MHC.OFFVIS ---
Intake Visit Reasons: R GSV RFA Accompanied by: Self / Same As Patient Allergies morphine [MORPHINE] Allergy (Unknown, Verified 09/11/24 09:42) RESP DEPRESSION Morphine Allergy (Unknown, Uncoded 03/23/24 13:44) shortness of breath PFSH Medical History Asthma Surgical History S/P laparoscopic sleeve gastrectomy Overweight Hx laparoscopic cholecystectomy S/P hernia repair S/P tonsillectomy and adenoidectomy Family History Father No problems noted. Mother No problems noted. Brother HTN (hypertension) Arthritis Depression Hyperlipidemia Brother No problems noted. Brother No problems noted. Sister No problems noted. Sister No problems noted. Son No problems noted. Son No problems noted. Daughter No problems noted. Daughter No problems noted. Daughter No problems noted. Social History Alcohol intake: never Patient Tobacco Use Status: Never used Tobacco Office Procedures Vascular Office Procedure Details Details: Diagnosis: Varicose veins with inflammation of right leg Procedure: Endovenous radiofrequency ablation of the right great saphenous vein(s) of the lower extremity. Anesthesia: Local infiltration 5 cc, Tumescent 300 cc. Estimated Blood Loss: minimal Specimen: Varicose veins The patient was transferred to the procedure suite and the insufficient saphenous vein was mapped by ultrasound and diagrammed on the overlying skin. The depth and diameter of the vein(s) to be treated was documented. The varicose tributary veins and suitable access sites were identified and mapped as well. The patient was then positioned supine on the procedure table. The affected limb was prepped and draped in the usual sterile fashion. The RF catheter was placed on the sterile field, flushed and wiped down, prepared, and connected by a sterile cable. The patient was placed in supine position and local anesthesia was instilled in the skin overlying the access site. A skin incision was made overlying the identified and mapped great saphenous vein entry site. The vein was accessed using ultrasound guidance and the Seldinger technique, a guide wire was introduced through the needle, which was then exchanged over the guide wire for a 6F sheath, which was secured in place. The guide wire was removed and the sheath was flushed. The RF catheter was placed into the vein through the sheath and preferentially, imaging was used to place the catheter tip just inferior to the superficial epigastric vein to preserve normal physiological flow in that vein. Additionally, it was confirmed by ultrasound guidance that the catheter tip was also placed a minimum of 1.5cm distal to the saphenofemoral junction. After the RF catheter position was verified by ultrasound, tumescent anesthesia was infiltrated, under ultrasound guidance, precisely into the perivenous compartment along the entire length of vein from the entry site to the saphenofemoral junction until a halo of fluid was noted around the vein. The patient was then placed in supine position to further exsanguinate the superficial venous system. After RF catheter position was again confirmed with ultrasound imaging, and under direct external compression along the length of the heating element, RF energy was applied. The vein was segmentally ablated by heating a 8 cm segment and then indexing the catheter forward by 7.5 cm until the treatment length is completed. Device temperature was maintained at 120 plus or minus 5 degrees C with an initial power level of 40W dropping to below 20W for each treatment. Total vein length treated 24 cm Total cycles of RF 4. Repeat ultrasound of the saphenous vein was performed, confirming successful treatment. The catheter and sheath were withdrawn and hemostasis established with direct pressure. After assuring hemostasis, the skin incision over the saphenous vein was closed with a bandage and a compression wrap, and/ or graduated compression stocking was applied from the level of the foot to the most proximal level of the thigh. 78314 - Endovenous RF, 1st Vein All charges added?: Procedure code (CPT) selection complete Assessment & Plan Assessment & Plan (1) Varicose veins of right lower extremity with inflammation: Comment: 09/11/2024 - right great saphenous vein radiofrequency ablation Code(s): I83.11 - Varicose veins of right lower extremity with inflammation Category: Medical Plan: See op note Coding Level of Care Code Procedure Only Diagnoses Varicose veins of right lower extremity with inflammation I83.11 CPT Codes Details - Vascular 1: 47721 - Endovenous RF, 1st Vein ([id number])
== END 2024-09-11 09:08 | disposition home or self-care (01) ==
LOC: HO.HVS 08:14
PROVIDERS: PCP Physician Assistant Medical; Visit Provider Surgery Vascular Surgery
DX: I83.11 Varicose veins of right lower extremity with inflammation (principal)
CPT/HCPCS: 36475

== ENCOUNTER → 2024-09-11 08:14 | Outpatient (BNVA) | payer OTHER, SELFPAY | PROVIDERS: PCP Physician Assistant Medical; Visit Provider Surgery Vascular Surgery | DX: I83.11 Varicose veins of right lower extremity with inflammation (principal) | CPT/HCPCS: 36475; J2003; J2004 ==

== ENCOUNTER 2024-09-24 10:05 | Outpatient (AMB) | payer OTHER, SELFPAY ==
--- NOTE | 2024-09-24 10:11 | A.OFFVIS_ITS ---
Intake Visit Reasons: 2 week follow up R GSV RFA 09/11/24 Intake Note: Patient presents for follow up GSV RFA. Patient states she has been having pain since the procedure. Accompanied by: Mother Allergies morphine [MORPHINE] Allergy (Unknown, Verified 09/24/24 10:13) RESP DEPRESSION Morphine Allergy (Unknown, Uncoded 03/23/24 13:44) shortness of breath HPI HPI 2 week follow up R GSV RFA 09/11/24: Details: The patient is a 49-year-old female presenting for postop follow-up. She had undergone right great saphenous vein radiofrequency ablation. She has had no other interval issues. She did report some mild postprocedure phlebitis in the right thigh. But other than that appears to be doing extremely well. Reports overall swelling has decreased. The patient reports significant improvement in the sciatic pain previously experienced. The shooting sensations, which were present even during rest and sitting, have subsided. Persistent localized pain at the surgical site remains, but this is expected to decrease gradually over the coming weeks. [facility] Medical History Asthma Surgical History S/P laparoscopic sleeve gastrectomy Overweight Hx laparoscopic cholecystectomy S/P hernia repair S/P tonsillectomy and adenoidectomy Family History Father No problems noted. Mother No problems noted. Brother HTN (hypertension) Arthritis Depression Hyperlipidemia Brother No problems noted. Brother No problems noted. Sister No problems noted. Sister No problems noted. Son No problems noted. Son No problems noted. Daughter No problems noted. Daughter No problems noted. Daughter No problems noted. Social History Alcohol intake: never Patient Tobacco Use Status: Never used Tobacco Review of Systems Const All systems reviewed & are unremarkable except as noted in HPI and below Reports no additional complaints ENT Reports Normal hearing present Card Denies chest pain, Denies chest pain at rest, Denies chest pain with activity and Denies pedal edema Resp Denies cough GI Denies abdominal pain Musc Denies abnormal gait, Denies muscle cramps and Denies radiating pain into limb Skin/Breast Denies skin ulcer and Denies wounds Neuro Reports Normal hearing present and Denies abnormal gait Psych Reports no additional complaints Physical Exam Const General: cooperative, healthy appearing and comfortable Orientation/consciousness: oriented to person, oriented to place and oriented to time HEENT Head: Yes normal to inspection Neck Neck: Yes normal visual inspection Carotids: no bruits Chest Chest palpation & inspection: normal inspection of the chest Resp Effort & Inspection: normal respiratory effort and able to speak in complete sentences Auscultation: clear to auscultation bilaterally, no crackles, no rales, no rhonchi and no wheezes Cardio Rate: regular rate Rhythm: regular rhythm Heart sounds: S1 normal heart sound present and S2 normal heart sound present Bruits: no carotid bruits Peripheral pulses: Peripheral pulses 2+ throughout GI Inspection: Yes normal to inspection Skin Wounds: no wounds Hair: normal Neuro General: oriented to person, oriented to place and oriented to time Cranial nerves: Yes CN's II-XII intact bilaterally and Yes Normal hearing present Cognition (Neuro): normal cognition Motor exam (neuro): 5/5 motor strength present throughout Extrem Other: venous exam: No significant superficial varicosities or spider telangiectasias, minimal edema General: No clubbing, No cyanosis and No edema Psych Appearance: grossly normal Mental Status: mental status grossly normal Speech and movement: Normal speech and movement present Assessment & Plan Assessment & Plan (1) Varicose veins of right lower extremity with inflammation: Comment: 09/11/2024 - right great saphenous vein radiofrequency ablation Code(s): I83.11 - Varicose veins of right lower extremity with inflammation Category: Medical Plan: The patient has done extremely well with all venous treatments. Patient's may often experience postprocedure phlebitic episodes and I have discussed with the patient use of warm compresses and NSAIDS if tolerated for pain discomfort. In addition, I have discussed continued conservative measures including use of compression, leg elevation, and exercise. The patient was also given an information sheet regarding appropriate use of compression stockings and future purchases. Thank you for allowing us to care for your patient with venous disease. Plan Patient was informed and verbally consented to the use of an ambient scribe for clinic note documentation during this visit. Patient Instructions: - Use a heating pad or warm compress on the area as needed. - Take Advil or Motrin for pain management. - Wear knee-high compression socks to reduce swelling. - Monitor for any changes in symptoms. - Contact us if the pain worsens or if you experience any new symptoms. Coding Level of Care Code Est Pt Level 3 (94270) Diagnoses Varicose veins of right lower extremity with inflammation I83.11
--- OUTSIDE RECORDS SUMMARY | 2024-09-24 11:02 | XMS_ITS | Patient Health Record ---
Author Organization [facility] Address [address] [id number] Care Team Providers Care Supervisor Major Appliance Assembly Name Role Phone SHANICE LINCOLN Unavailable [phone] Allergies Allergen (clinical drug ingredient) Drug/Non Drug Allergy documented on EMR Reaction Allergy Type Onset Date Status Mold Unknown Allergy Active Rodents Unknown Allergy Active Horses Unknown Allergy Active Results Component Value Reference Range Notes THINPREP PAP TEST, Cervix Reviewed date:05/19/2024 05:00:58 PM Interpretation:NIL Performing Lab:[facility], [address] [place], [place], [address] Varinder Paniagua DO Notes/Report: THINPREP PAP TEST NEGATIVE NEGATIVE -- THIN PREP PAP TEST -- SEX: F : 1975 AGE: 49 [id number] CLINIC ID: [id number] SS: PHYSICIAN: SHANICE LINCOLN CAKE STRIPPER COLLECTED BY: ____ Negative for Intraepithelial Lesion or Malignancy ____ Additional Findings: Endocervical Material Present Specimen Adequacy: Satisfactory for Evaluation Previous History: September 2015 Negative HPV(Neg) Clinical Note: HPV CohbnuvV21.419 Encounter for gynecological examination (general) (routine) without abnormal vmdopdhpD02.51 Encounter for screening for human papillomavirus (HPV)Z11.3 Encounter for screening for infections with a predominantly sexual mode of transmission, LMP 04/02/2024 Specimen Source: Cervix Visit Type: Routine Performed by: BRYON Curtis (ASCP) (Electronic Signature 05/18/2024 23:44) APTIMA COMBO 2 CT/NG, Cervix Reviewed date:05/18/2024 03:51:57 PM Interpretation:Negative Performing Lab:[facility], [place], [place], [address] Varinder Paniagua DO Notes/Report: GONORRHEA, AMPLIFIED NEGATIVE NEGATIVE CHLAMYDIA, AMPLIFIED NEGATIVE NEGATIVE DNA Test Results SEX: F : 1975 AGE: 49 [id number] CLINIC ID: [id number] SS: PHYSICIAN: SHANICE LINCOLN [employer]PER COLLECTED BY: [id number] ____ Specimen Source: Cervix Specimen Type: ThinPrep PAP Correlating Pap: [id number] Neisseria gonorrhoeae: NEGATIVE Normal Value: Negative Chlamydia trachomatis: NEGATIVE Normal Value: Negative HPV HIGH RISK, Cervix Reviewed date:05/19/2024 10:12:36 AM Interpretation:Negative Performing Lab:[facility], [place], [place], [address] Varinder Paniagua DO Notes/Report: HPV HIGH RISK NEGATIVE NEGATIVE HPV High Risk DNA Probe Assay SEX: F : 1975 AGE: 49 [id number] CLINIC ID: [id number] SS: PHYSICIAN: SHANICE LINCOLN [employer]KE [employer]PER COLLECTED BY: ____ Specimen Source: Cervix Specimen Type: ThinPrep Pap Correlating Pap: [id number] Additional High Risk Subtypes* NEGATIVE * Includes [...] 05/12/2024 Encounters Encounter Location Date Provider Diagnosis [facility] [address] [place] [address] [address] [place], [place] [id number] 05/12/2024 SHANICE LINCOLN Encounter for gynecological examination [...] to date with mammo, had done at [facility], normal as per clt. Discussed [...] Insured Coverage Start Date Coverage End Date [place] ATT CLAIMS [address] [place] [id number] Abbie Velasquez Self - patient is the [...]
--- OUTSIDE RECORDS SUMMARY | 2024-09-24 11:02 | XMS_ITS | Clinical Summary ---
Author Organization [facility] it Address [address] [place] [address] Care Team Providers Care Computer Lab Aide Name Role Phone Gemini Larson NP Primary Care Provider [phone] Immunizations Name Administration Dates Next Due Moderna [...] Procedure Name Priority Date/Time Associated Diagnosis Comments [facility] SCREENING DIGITAL Routine 12/13/2023 3:02 PM EDT Encounter for screening mammogram for malignant neoplasm of breast from Last 3 Months or Most Recently Relevant to Health Maintenance Results * TESS SCREENING DIGITAL (12/13/2023 3:02 PM EDT) Anatomical Region Laterality Modality Mammography 12/13/2023 1:29 PM EDT Narrative 12/13/2023 3:02 PM EDT [facility] Diagnostic Imaging Department [address] [place] [id number] Patient: ??TED VELASQUEZZ E ?/Age/Sex: 1975 - 48 - F Unit#: ??[id number] ? Location/Status: ??SPDIMAM/REG CLI ? Mnemonic/Ordering Site: ??DIGSC/SPMAM Ordering Physician: ??CAYLA CUNNINGHAM [facility] Screening Digital - 12/13/23 - 1403 Report Status:Signed EXAM: [facility] Screening Digital EXAM DATE AND TIME: 12/13/2023 2:03 PM HISTORY: ??Screening. COMPARISON: ??11/02/22, 06/07/21, 07/20/19 TECHNIQUE: Bilateral digital breast tomosynthesis was performed in the CC and MLO projections. Computer aided detection with [employer] 3D 3.1 was employed. TISSUE DENSITY: b. [...] Procedure Note Maribel Doyle MD - 02/26/2024 [facility] Diagnostic Imaging Department [address] [place] [address] Patient: ABBIE VELASQUEZ /Age/Sex: 1975 - 48 - F Unit#: [id number] Location/Status: [facility] CLI Mnemonic/Ordering Site: [facility] Ordering Physician: CAYLA CUNNINGHAM [facility] Screening Digital - 12/13/23 - 1403 Report Status:Signed EXAM: [facility] Screening Digital EXAM DATE AND TIME: 12/13/2023 2:03 PM HISTORY: Screening. COMPARISON: 11/02/22, 06/07/21, 07/20/19 TECHNIQUE: Bilateral digital breast tomosynthesis was performed in the CCand MLO projections. Computer aided detection with [employer] 3D 3.1was employed. TISSUE DENSITY: b. There [...] Recently Relevant to Health Maintenance Care Teams Computer Lab Aide Relationship Specialty Start Date End Date Gemini Larson NP [address] [place] [address] PCP - General 06/06/21
--- OUTSIDE RECORDS SUMMARY | 2024-09-24 11:02 | XMS_ITS | Clinical Summary ---
Author Organization [facility] Address [address] [place] [address] Care Team Providers Care [employer] Name Role Phone Unavailable Primary Care Provider [...] :Uncontrolled type 2 diabetes mellitus with hyperglycemia ([facility]) 9 Active topiramate (TOPAMAX) 50 mg tabletIndications :Chronic tension-type headache, not intractable topiramate 50 mg tablet Active lancets (FREESTYLE LANCETS) 28 gaugeIndications: Uncontrolled type 2 diabetes mellitus with hyperglycemia ([facility]) Order Freestyle lancets, check sugar daily. Dx: E11.65. 100 Each 2 9 Active blood-glucose meter monitoring kitIndications:Ty pe 2 diabetes mellitus without complication, without long-term current use of insulin ([facility]) as needed for blood glucose monitoring Order Free style lite. Check sugar daily. Dx; E11.65 1 Each 9 Active traMADoL (ULTRAM) 50 mg tabletIndications :Chronic bilateral low back pain without sciatica Take 1 Tab by mouth once daily as needed for pain 30 Tab 0 Active naloxone (NARCAN) 4 mg/actuation nasal sprayIndications: Chronic bilateral low back pain without sciatica Place 1 [place] into the nostril(s) as needed for opioid [...] Overview (04/08/2019): 02/19/2019: Echo: 45-50%. Done by [facility] cardio. Influenza vaccine refused 04/08/2019 Vitamin D deficiency 04/08/2019 Chronic bilateral low back p ain without sciatica: Se[place] Pain [place] [facility] 04/08/2019 Overview (07/11/2019): Saw Pain at [facility]: 07/01/2019: offered injections and PT. Menorrhagia 03/06/2019 Dysmenorrhea 03/06/2019 Fibromyalgia Diabetes mellitus type 2, uncomplicated ([facility] ) Chronic headache Overview (04/14/2020): 03/27/2020: Roro: [...] intracranial process on noncontrast head CT Asthma ([facility]) Hx of mammogram Overview (03/08/2019): Roro: 06/2018: IMPRESSION: 1. No mammographic evidence of malignancy. 2. Annual screening mammography is recommended Nexplanon in place Hx of tonsillectomy Hx of cholecystectomy Hx of umbilical hernia repair Immunizations Immunization Administration Dates Next Due Flu, Preservative Free 12/24/2016 Moderna COVID-19 Vaccine, re d cap blue label, 12+ Primary Series 08/20/2020,07/22/2020 PFIZER COVID VACCINE, PURPLE CAP, 12+ 05/24/2021 PNEUMOCOCCAL POLYSACCHARIDE PPV23 (Pneumovax 23) 07/02/2019 Family History Medical History Relation Name [...] Health Maintenance Due Date Last Done Comments Anxiety Screening 1975 Dental Examination 1975 HPV Screening 1975 Hepatitis [...] 08/18/2020, 0 08/18/2020, 03/06/2019, Additional history exists Zne-ARCAC-80 ( season) 2024 05/24/2021, 08/20/2020, 07/22/2020 Imm-Influenza [...] complication, without long-term current use of insulin ([facility]) LIPID PANEL Routine 08/18/2020 10:10 AM EDT Type 2 diabetes mellitus without complication, without long-term current use of insulin ([facility]) Hyperlipidemia LDL goal <70 ANTIBODY HIV-1&HIV-2 SINGLE RESULT Routine 03/06/2019 11:32 AM EDT Uncontrolled type 2 diabetes mellitus with hyperglycemia ([facility]) from Last 3 Months or Most Recently Relevant to Health Maintenance Results * HISTORIC MAMMOGRAM (06/07/2021 3:00 AM EST) 06/07/2021 3:00 AM EST Gemini Venkatdarrin ASSOCIATE PROFESSOR OF ART IMG MAMMO Edited Result - Final * COMPRE METAB PANEL (08/18/2020 10:10 AM EDT) GLUCOSE 88 65 - 99 mg/dL [facility] Comment: ?Fasting reference interval UREA NITROGEN (BUN) 15 7 - 25 mg/dL [facility] CREATININE (blood) 0.65 0.50 - 1.10 mg/dL [facility] GFR ESTIMATED 106 > OR = 60 mL/min/1 .[address] [facility] EGFR 123 > OR = 60 mL/min/1 .73m[address] [facility] BUN/CREATININE RATIO NOT APPLICABLE 6 - [address] [facility] SODIUM 137 135 - 146 mmol/L [facility] POTASSIUM 4.3 3.5 - 5.3 mmol/L [facility] CHLORIDE 103 98 - 110 mmol/L [facility] CARBON DIOXIDE 29 20 - 32 mmol/L [facility] CALCIUM 9.2 8.6 - 10.2 mg/dL [facility] PROTEIN, TOTAL 6.7 6.1 - 8.1 g/dL [facility] ALBUMIN 4.2 3.6 - 5.1 g/dL [facility] GLOBULIN 2.5 1.9 - 3.7 g/dL (calc) [facility] ALBUMIN/GLOBUL IN RATIO 1.7 1.0 - 2.5 (calc) [facility] BILIRUBIN, TOTAL 0.4 0.2 - 1.2 mg/dL [facility] ALKALINE PHOSPHATASE 63 31 - 125 U/L [facility] AST 16 10 - 35 U/L [facility] ALT 10 6 - 29 U/L [facility] Blood Blood / Unknown 08/18/2020 1 0:10 AM EDT 08/18/2020 10:10 AM EDT Narrative [facility] - 08/18/2020 8:09 PM EDT FASTING:YES Gemini Larson ASSOCIATE PROFESSOR OF ART LAB - BLOOD DRAW Final Result [facility] [address] [address], [place] [facility] [address] [address] * HIV-1 & HIV-2 ANTIBODIES (03/06/2019 11:32 AM EDT) [facility] HIV 1 AND 2 ANTIBODY SCREEN NEGATIVE NEGATIVE [facility] Comment: This assay is a 4th generation [...] AM EDT 03/06/2019 11:47 AM EDT [facility] - 03/06/2019 4:45 PM EDT [email or web address], [place] [address] Physical Therapist Assistant - Rayna Masters MD PT ID [id number] ORD# [id number] Gemini Turciossingh ASSOCIATE PROFESSOR OF ART LAB - BLOOD DRAW Final Result [employer] [facility] [address], from Last 3 Months or Most Recently Relevant to Health Maintenance Insurance [employer]
== END 2024-09-24 10:31 | disposition home or self-care (01) ==
LOC: HO.HVS 10:06
PROVIDERS: PCP Physician Assistant Medical; Visit Provider Surgery Vascular Surgery
DX: I83.11 Varicose veins of right lower extremity with inflammation (principal)
CPT/HCPCS: 99213

== ENCOUNTER → 2024-09-24 10:05 | Outpatient (BNVA) | payer OTHER, SELFPAY | PROVIDERS: PCP Physician Assistant Medical; Visit Provider Surgery Vascular Surgery | DX: I83.11 Varicose veins of right lower extremity with inflammation (principal); Z98.890 Other specified postprocedural states | CPT/HCPCS: 99212 ==

== ENCOUNTER 2024-11-11 13:24 | Outpatient (AMB) | payer OTHER, SELFPAY ==
[2024-11-11 13:26] VITALS: BP 118/66; PULSE 73; BMI 32.9
--- NOTE | 2024-11-11 13:26 | A.OFFVIS_ITS ---
Vital Signs 11/11/24 13:26 Height 5 ft 4 in Weight 191 lb 12.835 oz BMI 32.9 BP 118/66 Blood Pressure Location Lt brachial Position Sitting Pulse 73 Pulse Source Pulse Oximeter Intake Visit Reasons: 6 mth f/up r/s 10-15-24 Allergies morphine (MORPHINE) Allergy (Unknown, Verified 09/24/24 10:13) RESP DEPRESSION Morphine Allergy (Unknown, Uncoded 03/23/24 13:44) shortness of breath Medication List - Last Reconciled 11/11/24 by Guerrero Cheng MD baclofen 5 mg PO TID ibuprofen 650 mg PO Q6H PRN lisinopril 5 mg PO DAILY meloxicam 5 mg PO DAILY topiramate XR 50 mg PO BEDTIME HPI Comments Details: Abbie returns for follow-up. Previously, seen at [facility] but has switched over care. Per notes, it seems that she has a history of peripartum cardiomyopathy. EF was as low as 25-30% in 2008. In 2018, it improved 45%. In the most recent echocardiogram at [place], 45-50%. For the most part, she is feeling fine. She really does not have any clear-cut cardiac symptoms. She is very reluctant to take medications based on previous notes as well as from today's discussion. She is questioning the need for lisinopril. However, I strongly advised to continuing this. She does not take beta-blockers for the same reason. [facility] Medical History Asthma Surgical History S/P laparoscopic sleeve gastrectomy Overweight Hx laparoscopic cholecystectomy S/P hernia repair S/P tonsillectomy and adenoidectomy Family History Father No problems noted. Mother No problems noted. Brother HTN (hypertension) Arthritis Depression Hyperlipidemia Brother No problems noted. Brother No problems noted. Sister No problems noted. Sister No problems noted. Son No problems noted. Son No problems noted. Daughter No problems noted. Daughter No problems noted. Daughter No problems noted. Social History Alcohol intake: never Patient Tobacco Use Status: Never used Tobacco Review of Systems Const Denies weakness ENT Denies dizziness Card Denies chest pain, Denies chest pain with activity, Denies syncope, Denies rapid heart rate, Denies pedal edema, Denies edema, Denies leg edema, Denies lightheadedness, Denies palpitations, Denies dyspnea, Denies dyspnea on exertion and Denies orthopnea Resp Denies cough, Denies dyspnea and Denies dyspnea on exertion GI Denies hematochezia and Denies change in stool character Musc Denies abnormal gait, Denies muscle cramps, Denies muscle weakness, Denies numbness, Denies radiating pain into limb and Denies tingling Neuro Denies abnormal gait, Denies dizziness, Denies syncope, Denies numbness, Denies tingling and Denies weakness Endo Denies palpitations Physical Exam Vital Signs: Last Vital Signs Pulse 73 11/11/24 13:26 BP 118/66 11/11/24 13:26 BMI result Body Mass Index 32.9 Const General: comfortable and no acute distress Orientation/consciousness: patient oriented x3 HEENT Other: Unremarkable Head: Yes normal to inspection Neck Neck: Yes normal visual inspection Chest Chest palpation & inspection: normal inspection of the chest Resp Auscultation: clear to auscultation bilaterally Cardio Palpation: normal PMI Heart sounds: S1 normal heart sound present, S2 normal heart sound present, no gallops, no murmurs and no rubs GI Palpation (GI): Soft to palpation Back/Spine/Pelvis Other: unremarkable Skin General skin exam: no rashes or lesions noted Neuro General: patient oriented x3 Extrem General: Yes normal to inspection Psych Mental Status: mental status grossly normal Assessment & Plan Assessment & Plan (1) Cardiomyopathy: Code(s): I42.9 - Cardiomyopathy, unspecified Category: Medical Plan LVEF has improved from 25-30% in 2008, to as much as 45-50% in the most recent study. Myocardial perfusion imaging study from 2024 shows likely normal perfusion. She attained 9 METS on the ETT. Overall, peripartum cardiomyopathy with currently mid-range LVEF. She has got no overt cardiac symptoms. She wishes to stop Lisinopril but I strongly advised her to continue that. There is a possibility of LV dysfunction worsening without Lisinopril. She is not willing to take Beta-blockers. Otherwise, we will see her back in one year. Coding Level of Care Code Est Pt Level 3 (68362) Diagnoses Cardiomyopathy I42.9
--- OUTSIDE RECORDS SUMMARY | 2024-11-11 13:59 | XMS_ITS | Patient Health Record ---
Author Organization [place] Address [address] [id number] Care Team Providers Care Assembler Adjuster Name Role Phone SHANICE LINCOLN Unavailable [phone] Allergies Allergen (clinical drug ingredient) Drug/Non Drug Allergy documented on EMR Reaction Allergy Type Onset Date Status Mold Unknown Allergy Active Rodents Unknown Allergy Active Horses Unknown Allergy Active Results Component Value Reference Range Notes HPV HIGH RISK, Cervix Reviewed date:05/19/2024 10:12:36 AM Interpretation:Negative Performing Lab:[facility], [facility], [place], [address] Varinder Paniagua DO Notes/Report: HPV HIGH RISK NEGATIVE NEGATIVE HPV High Risk DNA Probe Assay SEX: F : 1975 AGE: 49 [id number] CLINIC ID: [id number] SS: PHYSICIAN: SHANICE LINCOLN WATER MAIN PIPE LAYER COLLECTED BY: ____ Specimen Source: Cervix Specimen Type: ThinPrep Pap Correlating Pap: [id number] Additional High Risk Subtypes* NEGATIVE * Includes 31,33,35,39,45,51,52,56,58,59,66, 68 Subtype 16 NEGATIVE Subtype 18 [address]GAT[address] 2 CT/NG, Cervix Reviewed date:05/18/2024 03:51:57 PM Interpretation:Negative Performing Lab:[facility], [facility], [place], [address] Varinder Paniagua DO Notes/Report: GONORRHEA, AMPLIFIED NEGATIVE NEGATIVE CHLAMYDIA, AMPLIFIED NEGATIVE NEGATIVE DNA Test Results SEX: F : 1975 AGE: 49 [id number] CLINIC ID: [id number] SS: PHYSICIAN: SHANICE LINCOLN WATER MAIN PIPE LAYER COLLECTED BY: [id number] ____ Specimen Source: Cervix Specimen Type: ThinPrep PAP Correlating Pap: [id number] Neisseria gonorrhoeae: NEGATIVE Normal Value: Negative Chlamydia trachomatis: NEGATIVE Normal Value: Negative THINPREP PAP TEST, Cervix Reviewed date:05/19/2024 05:00:58 PM Interpretation:NIL Performing Lab:[facility], [address], [place], [address] Varinder Paniagua DO Notes/Report: THINPREP PAP TEST NEGATIVE NEGATIVE -- THIN PREP PAP TEST -- SEX: F : 1975 AGE: 49 [id number] CLINIC ID: [id number] SS: PHYSICIAN: SHANICE LINCOLN WATER MAIN PIPE LAYER COLLECTED BY: ____ Negative for Intraepithelial Lesion or Malignancy ____ Additional Findings: Endocervical Material Present Specimen Adequacy: Satisfactory for Evaluation Previous History: September 2015 Negative HPV(Neg) Clinical Note: HPV LktcavwQ25.419 Encounter for gynecological examination (general) (routine) without abnormal pwdigvdlD50.51 Encounter for screening for human papillomavirus (HPV)Z11.3 Encounter for screening for infections with a predominantly sexual mode of transmission, LMP 04/02/2024 Specimen Source: Cervix Visit Type: Routine Performed by: BRYON Curtis (ASC) (Electronic Signature 05/18/2024 23:44) Reason For Referral No Information Medications Medication [...] 05/12/2024 Encounters Encounter Location Date Provider Diagnosis [facility] [address] [place] [address] [address] [place], [place] [id number] 05/12/2024 SHANICE LINCOLN Encounter for gynecological examination [...] to date with mammo, had done at [facility], normal as per clt. Discussed perimenopause, [...] ATT CLAIMS [address] [place] [address] [phone] Abbie Velasquez Self - patient is the [...]
--- OUTSIDE RECORDS SUMMARY | 2024-11-11 13:59 | XMS_ITS | Clinical Summary ---
Author Organization [facility] Address [address] [place] [address] Care Team Providers Care Wool Brusher Name Role Phone Unavailable Primary Care Provider [...] :Uncontrolled type 2 diabetes mellitus with hyperglycemia ([facility]) 9 Active topiramate (TOPAMAX) 50 mg tabletIndications :Chronic tension-type headache, not intractable topiramate 50 mg tablet Active lancets (FREESTYLE LANCETS) 28 gaugeIndications: Uncontrolled type 2 diabetes mellitus with hyperglycemia ([facility]) Order Freestyle lancets, check sugar daily. Dx: E11.65. 100 Each 2 9 Active blood-glucose meter monitoring kitIndications:Ty pe 2 diabetes mellitus without complication, without long-term current use of insulin ([facility]) as needed for blood glucose monitoring Order Free style lite. Check sugar daily. Dx; E11.65 1 Each 11/27/201 9 Active traMADoL (ULTRAM) 50 mg tabletIndications :Chronic bilateral low back pain without sciatica Take 1 Tab by mouth once daily as needed for pain 30 Tab 0 Active naloxone (NARCAN) 4 mg/actuation nasal sprayIndications: Chronic bilateral low back pain without sciatica Place 1 [place] into the nostril(s) as needed for opioid [...] Date Bilateral primary osteoarthritis of hip 12/20/19 Overview (09/04/2020): 08/18/2020: [facility]: Xray of both [...] Hyperlipidemia LDL goal <70 07/05/2019 Cardiomyopathy (HCC-CMS): Sees Cardio 05/30/2019 Overview (07/11/2019): Sees [facility] cardio . On 05/27/2019: nonischemic cardiomyopathy; EF 45-50% (improved). On low dose lisinopril, stopped BB. F/u in 1 year. Hx of echocardiogram 04/08/2019 Overview (04/08/2019): 02/19/2019: Echo: 45-50%. Done by [facility] cardio. Influenza vaccine refused 04/08/2019 Vitamin D deficiency 04/08/2019 Chronic bilateral low back p ain without sciatica: Sees Pain at [facility] 04/08/2019 Overview (07/11/2019): Saw Zackery Brown at [facility]: 07/01/2019: offered injections and PT. Menorrhagia 03/06/2019 Dysmenorrhea 03/06/2019 Fibromyalgia Diabetes mellitus type 2, uncomplicated (CMS & H HS-HCC) Chronic headache Overview (04/14/2020): 03/27/2020: [facility]: CT [...] intracranial process on noncontrast head CT Asthma (HHS-HCC) Hx of mammogram Overview (03/08/2019): [facility]: 06/2018: [...] 73 07/02/2019 9:47 AM EST Temperature 36.9 C (98.4 F) 07/02/2019 9:47 AM EST Respiratory Rate 16 07/02/2019 9:47 AM EST [...] 08/18/2020, 0 08/18/2020, 03/06/2019, Additional history exists [id number] ( season) 2024 05/24/2021, 08/20/2020, 07/22/2020 Imm-Zoster, Recombinant (1 of 2) 2024 Alcohol and Drug Screen 05/13/2024 08/31/19 21, 07/02/2019, 03/06/2019 Depression Annual Screen 05/13/2024 Imm-Influenza (Season Ended) 2025 12/24/2016 Lipid Screening 08/18/2025 08/18/2020, 03/06/2019 Imm-DTaP/Tdap/Td (2 [...] complication, without long-term current use of insulin ([facility]) LIPID PANEL Routine 08/18/2020 10:10 AM EDT Type 2 diabetes mellitus without complication, without long-term current use of insulin ([facility]) Hyperlipidemia LDL goal <70 ANTIBODY HIV-1&HIV-2 SINGLE RESULT Routine 03/06/2019 11:32 AM EDT Uncontrolled type 2 diabetes mellitus with hyperglycemia ([facility]) from Last 3 Months or Most Recently Relevant to Health Maintenance Results * HISTORIC MAMMOGRAM (06/07/2021 3:00 AM EST) 06/07/2021 3:00 AM EST [facility]odarrin [facility] IM MAMMO Edited Result - Final * COMPRE METAB PANEL (08/18/2020 10:10 AM EDT) GLUCOSE 88 65 - 99 mg/dL [facility] Comment: Fasting reference interval UREA NITROGEN (BUN) 15 7 - 25 mg/dL [facility] CREATININE (blood) 0.65 0.50 - 1.10 mg/dL [facility] GFR ESTIMATED 106 > OR = 60 mL/min/1 .73m2 [facility] EGFR 123 > OR = 60 mL/min/1 .73m2 [facility] BUN/CREATININE RATIO NOT APPLICABLE 6 - 22 [facility] SODIUM 137 135 - 146 mmol/L [facility] POTASSIUM 4.3 3.5 - 5.3 mmol/L [facility] CHLORIDE 103 98 - 110 mmol/L [facility] CARBON DIOXIDE 29 20 - 32 mmol/L [facility] CALCIUM 9.2 8.6 - 10.2 mg/dL [facility] PROTEIN, TOTAL 6.7 6.1 - 8.1 g/dL [facility] ALBUMIN 4.2 3.6 - 5.1 g/dL [facility] GLOBULIN 2.5 1.9 - 3.7 g/dL (calc) [facility] ALBUMIN/GLOBUL IN RATIO 1.7 1.0 - 2.5 (calc) [facility] BILIRUBIN, TOTAL 0.4 0.2 - 1.2 mg/dL [facility] ALKALINE PHOSPHATASE 63 31 - 125 U/L [facility] AST 16 10 - 35 U/L [facility] ALT 10 6 - 29 U/L [facility] Blood Blood / Unknown 08/18/2020 1 0:10 AM EDT 08/18/2020 10:10 AM EDT Narrative [facility] - 08/18/2020 8:09 PM EDT FASTING:YES Gemini Larson [facility] - BLOOD DRAW Final Result [facility] [address] [address], [place] [facility] [address] [address] * HIV-1 & HIV-2 ANTIBODIES (03/06/2019 11:32 AM EDT) [facility] HIV 1 AND 2 ANTIBODY SCREEN NEGATIVE NEGATIVE [facility] Comment: This assay is a 4th generation assay allowing for earlier detection of HIV infection by detecting the presence of the HIV-1 p24 antigen as well as the traditional antibodies to HIV type 1 (including group O) and type 2. Use of a 4th generation assay is the current CDC recommendation for HIV screening. Blood specimen (specimen) Blood / Unknown 03/06/2019 11:32 AM EDT 03/06/2019 11:47 AM EDT Narrative [facility] - 03/06/2019 4:45 PM EDT [employer], a member of [address] [address] Airborne Operations Superintendent - Rayna Masters MD PT ID [id number] ORD# [id number] Gemini Larson [facility] - BLOOD DRAW Final Result [facility] [employer] [address], from Last 3 Months or Most Recently Relevant to Health Maintenance Insurance [employer]
--- OUTSIDE RECORDS SUMMARY | 2024-11-11 13:59 | XMS_ITS | Clinical Summary ---
Author Organization [address] Address [address] [place] [address] Phone Care Team Providers Care Brim Pouncer Machine Operator Name Role Phone Gemini Larson S[place] Primary Care Provider [phone] Immunizations Name Administration Dates Next Due Moderna [...] 12/07/2022 1:27 PM EDT Plan of Treatment Upcoming Encounters Date Type Department Care Team (Late st Contact Info) Description 11/23/2024 10:30 AM EDT Evaluation [address] [id number] [place], [place] Health Maintenance Due Date Last Done Comments [...] Procedure Name Priority Date/Time Associated Diagnosis Comments [facility] SCREENING DIGITAL Routine 12/13/2023 3:02 PM EDT Encounter for screening mammogram for malignant neoplasm of breast from Last 3 Months or Most Recently Relevant to Health Maintenance Results * [facility] SCREENING DIGITAL (12/13/2023 3:02 PM EDT) Anatomical Region Laterality Modality Mammography 12/13/2023 1:29 PM EDT Narrative 12/13/2023 3:02 PM EDT [facility] Diagnostic Imaging Department [address] [place] [address] Patient: ABBIE VELASQUEZ /Age/Sex: 1975 - 48 - F Unit#: [id number] Location/Status: [facility] Mnemonic/Ordering Site: [facility] Ordering Physician: CAYLA CUNNINGHAM [facility] Screening Digital - 12/13/23 - 1403 Report Status:Signed EXAM: [facility] Screening Digital EXAM DATE AND TIME: 12/13/2023 2:03 PM HISTORY: Screening. COMPARISON: 11/02/22, 06/07/21, 07/20/19 TECHNIQUE: Bilateral digital breast tomosynthesis was performed in the CC and MLO projections. Computer aided detection with Tradier 3D 3.1 was employed. TISSUE DENSITY: b. There are scattered areas of fibroglandular density. FINDINGS: No suspicious masses, grouped microcalcifications, or areas of architectural distortion are seen. Vascular calcification is present. The skin is unremarkable. IMPRESSION: Stable mammographic appearance of the breasts. No evidence of malignancy is seen. A negative mammogram in the presence of a clinically suspicious palpable abnormality does not preclude the possibility of malignancy or alter the indications for biopsy. BI-RADS: Category 2: Benign RECOMMENDATION(S): 1: Routine screening mammogram BILATERAL in 1 year. Dictating Physician: MARIBEL DOYLE MD Electronically Signed by: MARIBEL DOYLE MD Dic Date/Time: 12/13/23 1502 Sign date/Time: 12/13/23 150 Procedure Note Maribel Doyle MD - 02/26/2024 [facility] Diagnostic Imaging Department [address] [place], [place] [id number] Patient: ABBIE VELASQUEZ /Age/Sex: 1975 - 48 - F Unit#: [id number] Location/Status: [facility] CLI Mnemonic/Ordering Site: [facility] Ordering Physician: CAYLA CUNNINGHAM [facility] Screening Digital - 12/13/23 - 1401 Report Status:Signed EXAM: [facility] Screening Digital EXAM DATE AND TIME: 12/13/2023 2:03 PM HISTORY: Screening. COMPARISON: 11/02/22, 06/07/21, 07/20/19 TECHNIQUE: Bilateral digital breast tomosynthesis was performed in the CCand MLO projections. Computer aided detection with iCAD [employer] AI 3D 3.1was employed. TISSUE DENSITY: b. There [...] Date/Time: 12/13/23 1502 Sign date/Time: 12/13/23 1502 Cayla MEDEL IMG BI PROCEDURES Final Resu lt from Last 3 Months or Most Recently Relevant to Health Maintenance Insurance [facility] MEDICAID ADVANTAGE Care Teams Brim Pouncer Machine Operator Relationship Specialty Start Date End Date Gemini Larson NP [address] [place] [id number] PCP - General 06/06/21
--- OUTSIDE RECORDS SUMMARY | 2024-11-11 13:59 | XMS_ITS | Data Portability ---
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 Nasal endoscopy today demonstrated mucoid rhinorrhea bilaterally, but no polyps or edema. Recommended CT sinus and allergy testing for further evaluation. Also recommended consistent use of Flonase and loratadine daily. She will follow-up to review the results. If CT sinus and allergy testing are negative, may consider MRI brain for further evaluation of phantosmia. Patient also presents for evaluation of hearing loss. Otologic exam is benign. Audiometric testing performed at [facility] 08/26/24 demonstrated normal sloping to mild sensorineural hearing loss bilaterally. Patient is a candidate for amplification and medical clearance was provided today. She will follow-up for yearly audiometric testing. [email or web address] Not available 10/09/2024 11:15:26 Plan of Treatment Reminders Order Date Submit Date Provider Last Modified By Organization Details Last Modified Time Details Appointments Allergy Test 2024 09:00A M [facility] Not available Not available Not available Establish ed 15 2024 09:15A M SAUNDRA DA SILVA PA-C Not available Not available Not available Lab None recorded. Referral None recorded. Procedures allergy testing, skin prick (PROC) 2024 025 [email or web address] Not available 10/14/2024 14:51:16 intraderm al allergy skin testing (PROC) 2024 025 hlorinser Not available 10/14/2024 14:51:16 pulmonary function test procedure (PROC) 2024 025 [email or web address] Not available 10/14/2024 14:51:16 pulse oximetry (PROC) 2024 025 [email or web address] Not available 10/14/2024 14:51:16 Surgeries None recorded. Imaging CT, sinuses, w/o contrast 2024 025 [place] [facility] [place], [address], [address], [place], [address], 11/01/2024 07:02:13 Medication Orders Flonase Allergy Relief 50 mcg/actua tion nasal spray,freddie pension [address] [facility] [place], [address], 10/12/2024 16:28:19 Claritin 10 mg tablet 2024 025 [facility] [place], [address], 10/12/2024 10:01:12 Patient TargetsNo targets recorded. Patient InstructionsNo instructions recorded. Reason for Referral None Reported. Results Created Date Observation Date Name Description Value Unit Range Abnormal Flag Note LastModifiedBy Organization Detail LastModifiedTime 11/02/1910/30/2024 CT, sinus es, w/o contr ast No observ ation record ed. [email or web address] [facility] [place] [address], [place], [address], 11/04/2024 10:32:19 Result Notes None recorded. 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 Procedures Surgical History Date Name Laterality Status Provider Name and Address Organization Details Recorded Time 10/09/2024 NasalEndos copy_DP completed SAUNDRA DA SILVA PA-C [address] [place] [address], [place], [address], [facility] 10/09/2024 11:08:38 Imaging Results None recorded. Procedure Notes None recorded. Medical Equipment None Reported. Allergies Allergen ID Allergen Name Allergen Category Reaction Reaction Severity Criticality Documentation Date Start Date Code Code System Note Provider Name and Address Organization Details Recorded Time 148124 morphine medicatio n Not available Not available Not available 10/09/2024 7052 RxNorm Jumana miller [facility] 10:32:46 Medications Name Sig Start Date Stop Date Status Note LastModified by Organization Details LastModified Time melatonin 3 mg tablet active Not Available Not Available No t Available baclofen 10 mg tablet active Not Available Not Available No t Available omeprazole 20 mg capsule,lorin yed release active Not Available Not Available Not Available lisinopril 5 mg tablet active Not Available Not Available No t Available fluticasone propionate 50 mcg/actuatio n nasal spray,suspen sima [place] 2 sprays every day by intranasal route for 30 days. active Not Available Not Available No t Available loratadine 10 mg tablet Take 1 tablet every day by oral route for 30 days. active Not Available Not Available No t Available Ventolin HFA 90 mcg/actuatio n aerosol inhaler active Not Available Not Available Not Available diclofenac 1 % topical gel active Not Available Not Available Not Available Vitals Date Recorded Body height Body mass index (BMI) Body weight Provider Name and Address Organization Details Last Updated DateTime 10/09/2024 162.56 cm 32.6 kg/m2 95495.55 g Jumana Hunt [place] - [facility] 10/09/2024 10:32:27 Social History None recorded. Functional Status None recorded. Mental Status None recorded. Family History Nothing Reported. Medical History No medical history recorded. Gynecological HistoryNo gynecological history recorded. Obstetrics History GPAL:G 0 P 0 0 0 0 Past Encounters Encounter ID Performer Location Encounter Start Date Encounter Closed Date Diagnosis/Indication Diagnosis SNOMED-CT Code Diagnosis ICD10 Code Diagnosis Note [id number] SAUNDRA DA SILVA PA-C [facility] [address] [place] [address] 10/09/2024 10:23:48 10/09/2024 11:04:08 Allergic rhinitis 89358214 J30.89 Olfactory hallucinations 29981717 R44.2 Sensorineu ral hearing loss of bilateral ears 673447125 H90.3 Health Concerns Section Related Observation LastModified by Organization Detai ls LastModified Time None Recorded Concern Status LastModified by Organization Details LastModified Time None Recorded Advance Directives Directive None Recorded Payers Insurance Date Sequence Insurance Name Policy Number Policy Kinsey Covered Member ID Kinsey Member ID Guarantor Name 10/12/[address] [place] [address] [id number] Abbieopal Velasquez [id number] Abbie Velasquez Notes Date Note Type Note Provider Name and Address Organization Details Recorded Time 10/09/2024 text/html 49-year-old manny macias 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 For the past 4 years, she reports intermittently smelling cigar smoke and cologne as well as nasal congestion. Denies headache, facial pain, PND, and rhinitis. She reports history of chronic sinusitis and allergic rhinitis. Has not had a recent sinus infection. Previously underwent immunotherapy for her allergies. Currently takes loratadine. Has not tried consistent trial of Flonase. Denies viral illness at onset of symptoms. Denies head injury. Patient also had a hearing test at [facility] back in August. She reports decreased hearing, but denies otalgia, otorrhea, tinnitus, vertigo. SAUNDRA DA SILVA PA-C [address] [place] [address],[facility] [address], [place], [address], [facility] - [facility] 10/09/2024 11:17:19 OBGyn Episode No OBEpisode recorded.
== END 2024-11-11 13:44 | disposition home or self-care (01) ==
LOC: HO.HCS 13:24
PROVIDERS: PCP Physician Assistant Medical; Visit Provider Internal Medicine
DX: I42.9 Cardiomyopathy, unspecified (principal)
CPT/HCPCS: 99213

== ENCOUNTER → 2024-11-11 13:24 | Outpatient (BNVA) | payer OTHER, SELFPAY | PROVIDERS: PCP Physician Assistant Medical; Visit Provider Internal Medicine | DX: O90.3 Peripartum cardiomyopathy (principal); I42.9 Cardiomyopathy, unspecified | CPT/HCPCS: 99212 ==

== ENCOUNTER 2025-01-08 09:24 | Outpatient (AMB) | payer OTHER, SELFPAY ==
[2025-01-08 09:33] VITALS: BMI 33.3
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
--- OUTSIDE RECORDS SUMMARY | 2025-01-08 10:13 | XMS_ITS | Clinical Summary ---
Author Organization [facility] Address [address] [place] [address] Care Team Providers Care Furniture Mover Helper Name Role Phone Unavailable Primary Care Provider [...] :Uncontrolled type 2 diabetes mellitus with hyperglycemia ([facility]) 9 Active topiramate (TOPAMAX) 50 mg tabletIndications :Chronic tension-type headache, not intractable topiramate 50 mg tablet Active lancets (FREESTYLE LANCETS) 28 gaugeIndications: Uncontrolled type 2 diabetes mellitus with hyperglycemia ([facility]) Order Freestyle lancets, check sugar daily. Dx: E11.65. 100 Each 2 9 Active blood-glucose meter monitoring kitIndications:Ty pe 2 diabetes mellitus without complication, without long-term current use of insulin ([facility]) as needed for blood glucose [...] low back pain without sciatica Place [address] [place] into the nostril(s) as needed for opioid [...] Overview (04/08/2019): 02/19/2019: Echo: 45-50%. Done by [facility] cardio. Influenza vaccine refused 04/08/2019 [...] 08/18/2020, 0 08/18/2020, 03/06/2019, Additional history exists Zma-[id number]-79 ( season) 2024 05/24/2021, 08/20/2020, 07/22/2020 Imm-Pneumococcal 50+ (2 of 2 - PCV) 2024 07/02/2019 Imm-Zoster, Recombinant (1 of 2) 2024 Alcohol and Drug Screen 05/13/2024 08/31/19 21, 07/02/2019, 03/06/2019 Depression Annual Screen 05/13/2024 Imm-Influenza (#1) 2025 12/24/2016 Lipid Screening 08/18/2025 08/18/2020, 03/06/2019 [...] complication, without long-term current use of insulin ([facility]) LIPID PANEL Routine 08/18/2020 10:10 AM EDT Type 2 diabetes mellitus without complication, without long-term current use of insulin ([facility]) Hyperlipidemia LDL goal <70 ANTIBODY HIV-1&HIV-2 SINGLE RESULT Routine 03/06/2019 11:32 AM EDT Uncontrolled type 2 diabetes mellitus with hyperglycemia ([facility]) from Last 3 Months or Most Recently Relevant to Health Maintenance Results * HISTORIC MAMMOGRAM (06/07/2021 3:00 AM EST) 06/07/2021 3:00 AM EST Gemini Larson [facility] MAMMO Edited Result - Final * COMPRE METAB PANEL (08/18/2020 10:10 AM EDT) GLUCOSE 88 65 - 99 mg/dL [facility] Comment: Fasting reference interval UREA NITROGEN (BUN) 15 7 - 25 mg/dL [facility] CREATININE (blood) 0.65 0.50 - 1.10 mg/dL [facility] GFR ESTIMATED 106 > OR = 60 mL/min/1 .73m2 [facility] EGFR 123 > OR = 60 mL/min/1 .73m2 [facility] BUN/CREATININE RATIO NOT APPLICABLE 6 - 22 [facility] SODIUM 137 135 - 146 mmol/L [facility] POTASSIUM 4.3 3.5 - 5.3 mmol/L [facility] CHLORIDE 103 98 - 110 mmol/L [facility] CARBON DIOXIDE 29 20 - 32 mmol/L [facility] CALCIUM 9.2 8.6 - 10.2 mg/dL [facility] PROTEIN, TOTAL 6.7 6.1 - 8.1 g/dL [facility] ALBUMIN 4.2 3.6 - 5.1 g/dL [facility] GLOBULIN 2.5 1.9 - 3.7 g/dL (calc) [facility] ALBUMIN/GLOBUL IN RATIO 1.7 1.0 - 2.5 (calc) [facility] BILIRUBIN, TOTAL 0.4 0.2 - 1.2 mg/dL [facility] ALKALINE PHOSPHATASE 63 31 - 125 U/L [facility] AST 16 10 - 35 U/L [facility] ALT 10 6 - 29 U/L [facility] Blood Blood / Unknown 08/18/2020 1 0:10 AM EDT 08/18/2020 10:10 AM EDT Narrative [facility] - 08/18/2020 8:09 PM EDT FASTING:YES Gemini Larson BOOKING CLERK LAB - BLOOD DRAW Final Result [facility] [address] [address], [facility] [address] [address] * HIV-1 & HIV-2 ANTIBODIES (03/06/2019 11:32 AM EDT) [facility] HIV 1 AND 2 ANTIBODY SCREEN NEGATIVE NEGATIVE [facility] Comment: This assay is a 4th [...] AM EDT 03/06/2019 11:47 AM EDT Domin[facility] - 03/06/2019 4:45 PM EDT [employer], a member of [address] [address] [employer] - Rayna Masters MD PT ID [id number] ORD# [id number] Gemini Larson BOOKING CLERK LAB - BLOOD DRAW Final Result [facility] [employer] [address], from Last 3 Months or Most Recently Relevant to Health Maintenance Insurance [employer]
--- OUTSIDE RECORDS SUMMARY | 2025-01-08 10:13 | XMS_ITS | Patient Health Record ---
Author Organization [facility] Address [address] [id number] Care Team Providers Care Cloth Checker Name Role Phone SHANICE LINCOLN Unavailable [phone] Allergies Allergen (clinical drug ingredient) Drug/Non Drug Allergy documented on EMR Reaction Allergy Type Onset Date Status Mold Unknown Allergy Active Rodents Unknown Allergy Active Horses Unknown Allergy Active Results Component Value Reference Range Flag Notes HPV HIGH RISK, Cervix Reviewed date:05/19/2024 10:12:36 AM Interpretation:Negative Performing Lab:[facility], [place], [address] Varinder Paniagua DO Notes/Report: HPV HIGH RISK NEGATIVE NEGATIVE N HPV High Risk DNA Probe Assay SEX: F : 1975 AGE: 49 [id number] CLINIC ID: [id number] SS: PHYSICIAN: SHANICE LINCLON SEAT INSTALLER COLLECTED BY: Specimen Source: Cervix Specimen Type: ThinPrep Pap Correlating Pap: [id number] Additional High Risk Subtypes* NEGATIVE * Includes 31,33,35,39,45,51,52,56,58,59, 66,68 Subtype 16 NEGATIVE Subtype 18 NEGAT[address] COMBO 2 CT/NG, Cervix Reviewed date:05/18/2024 03:51:57 PM Interpretation:Negative Performing Lab:[facility], [place], [place], [address] Varinder Paniagua DO Notes/Report: GONORRHEA, AMPLIFIED NEGATIVE NEGATIVE N CHLAMYDIA, AMPLIFIED NEGATIVE NEGATIVE N DNA Test Results SEX: F : 1975 AGE: 49 [id number] CLINIC ID: [id number] SS: PHYSICIAN: SHANICE LINCOLN SEAT INSTALLER COLLECTED BY: [id number] Specimen Source: Cervix Specimen Type: ThinPrep PAP Correlating Pap: [id number] Neisseria gonorrhoeae: NEGATIVE Normal Value: Negative Chlamydia trachomatis: NEGATIVE Normal Value: Negative THINPREP PAP TEST, Cervix Reviewed date:05/19/2024 05:00:58 PM Interpretation:NIL Performing Lab:[facility], [address], [place], [address] Varinder Paniagua DO Notes/Report: THINPREP PAP TEST NEGATIVE NEGATIVE N -- THIN PREP PAP TEST -- SEX: F : 1975 AGE: 49 [id number] CLINIC ID: [id number] SS: PHYSICIAN: SHANICE LINCOLN SEAT INSTALLER COLLECTED BY: Negative for Intraepithelial Lesion or Malignancy Additional Findings: Endocervical Material Present Specimen Adequacy: Satisfactory for Evaluation Previous History: September 2015 Negative HPV(Neg) Clinical Note: HPV NxofdmrA06.419 Encounter for gynecological examination (general) (routine) without abnormal hstjzglyP69.51 Encounter for screening for human papillomavirus (HPV)Z11.3 Encounter for screening for infections with a predominantly sexual mode of transmission, LMP 04/02/2024 Specimen Source: Cervix Visit Type: Routine Performed by: BRYON Curtis (ASCP) (Electronic Signature 05/18/2024 23:44) Reason For Referral No Information Medications Medication SIG (Take, Route, Frequency, Duration) Notes Start Date End Date Status Topiramate Active Meloxicam Active Vitamin D 1000 UNIT Tablet 1 tablet Orally Once a day Active Nexplanon 68 MG Implant as directed Subcutaneous Active Lyrica 25 MG Capsule 2 capsules Orally T hree times a day Not-Taking/PRN iron 1 tab Oral Not-Takin g/PRN traMADol HCl 50 MG Tablet 1 tablet as needed Orally every 6 hrs Not-Taking/MT N Baclofen Active Social History Sex Assigned At : Social History Observation Description Sex Assigned At Female Social History HIV Risk Assessment Social Info Question Answer Notes Additional Questions Is an HIV Risk Asse ssment being conducted? No Reproductive Life Plan: Social Info Question Answer Notes Reproductive Life Plan: Do you want to have chil dren? No, I don't want to have children How sure are you that you will be able to use your control method without any problems? Very sure People's plans change. Is it possible you or your partner could ever decide to become ? No Human Trafficking: Social Info Question Answer Notes Human Trafficking Experienced: No PrEP for HIV: Social Info Question Answer Notes PrEP for HIV Is the client intere sted in beginning/continuing PrEP for HIV? No Sexual History: Social Info Question Answer Notes Sexual History: Sexual History Reviewed: Partner s, Practices, Protection/Past STIs, Prevention of Currently sexually active? No When was the last time you were sexually active? 04/12/2010 When you are sexually active, who are your partners? Men Your sexual activities include: no sexual activity Reviewed types of EC? No Number of partners in past 3 months: 0 Number of partners in past year: 0 What is the client's primary method to prevent at the end of their visit? Hormone Implant (Nexplanon) Counseling Provided: Social Info Question Answer Notes Counseling Provided Please indicate the length of time, in minutes, that counseling was provided. 8 Counseling Was Provided By: zahida Drugs/Alcohol: Social Info Question Answer Notes Drug/Alcohol Use Do you or have you used drugs? No Do you or have you used alcohol? Yes, currently occasional use Food Access: Social Info Question Answer Notes Food Access The Client's current access to food is Secure Food Access Relationships: Social Info Question Answer Notes Relationships Has the client experienced any of the following: Client has never experienced harmful relationships DO NOT USE - Travel Plans: Social Info Question Answer Notes Travel Plans DO NOT USE - Has cli ent traveled to any Zika affected areas? Yes DO NOT USE - Has partner traveled to any Zika af fected areas? Yes DO NOT USE - Is client planning to travel to any Zika affected areas? No DO NOT USE - Is partner planning to travel to an y Zika affected areas? No Housing Social Info Question Answer Notes Housing The client's current living situation is: stable housing Tobacco Use: Social Info Question Answer Notes Tobacco Use: Do you/have you used tobacco? No Tobacco Smoking Status Unknown if ever smoked Vital Signs Blood pressure diastolic 88 mm Hg 05/12/2024 Height 64 in 05/12/2024 Blood pressure systolic 126 mm Hg 05/12/2024 Weight 183.2 lbs 05/12/2024 BMI 31.44 kg/m2 05/12/2024 Encounters Encounter Location Date Provider Diagnosis [facility] [address] [place] [address] [address] [place], [place] [id number] 05/12/2024 SHANICE LINCOLN Encounter for gynecological examination [...] to date with mammo, had done at [facility], normal as per clt. Discussed [...] [place] [address] [place] [address] [id number] Abbie Velasquez Self - patient is the [...]
--- OUTSIDE RECORDS SUMMARY | 2025-01-08 10:13 | XMS_ITS | Clinical Summary ---
Author Organization [address] Address [address] [place], [place] Phone Care Team Providers Care Supplies Packer Name Role Phone Gemini Larson SALEEM Primary Care Provider [phone] Encounters Date Type Department Care Team Description 12/30/2024 5:00 PM EDT Treatment Outpatient Rehabilitation [address] [phone] Janey Orozco, CLOTH MEASURER Chronic left shoulder pain (Primary Dx) 12/28/2024 3:30 PM EDT Treatment Outpatient [address] [phone] Bay Russell, PT Chronic left shoulder pain (Primary Dx) 12/18/2024 11:30 AM EDT Treatment Outpatient [address] [phone] Bay Russell, PT Chronic left shoulder pain (Primary Dx) 12/15/2024 11:00 AM EDT Treatment Outpatient [address] [phone] Janey Orozco, CLOTH MEASURER Chronic left shoulder pain (Primary Dx) 12/09/2024 2:00 PM EDT Treatment Outpatient [address] [phone] Lolos, Janey H, CLOTH MEASURER Chronic left shoulder pain (Primary Dx) 12/08/2024 11:00 AM EDT Treatment Outpatient Rehabilitation - [address] [phone] Janey Orozco, CLOTH MEASURER Chronic left shoulder pain (Primary Dx) 12/04/2024 11:00 AM EDT Treatment Outpatient [address] [phone] Janey Orozco, CLOTH MEASURER Chronic left shoulder pain (Primary Dx) 12/02/2024 4:30 PM EDT Treatment Outpatient [address] [phone] Janey Orozco, CLOTH MEASURER Chronic left shoulder pain (Primary Dx) 11/26/2024 10:30 AM EDT Treatment Outpatient [address] [phone] Janey Orozco, CLOTH MEASURER Chronic left shoulder pain (Primary Dx) 11/23/2024 10:30 AM EDT Evaluation Outpatient [facility] - [address] [phone] Bay Russell, PT Pain in left shoulder (Primary Dx); Chronic left shoulder pain from Last 3 Months Immunizations Name Administration Dates Next Due Moderna [...] Value Date Recorded Sex Assigned at Female 11/24/2024 10:15 AM EDT Legal Sex Female 2:27 AM EST Gender Identity Female 11/24/2024 10:15 AM EDT Sexual Orientation Straight 11/24/2024 10 :15 AM EDT Obstetrics History Last Filed Vital Signs Vital [...] Care Team (Late st Contact Info) Description 01/21/2025 5:00 PM EDT Treatment Outpatient Rehabilitation - [address] [phone] Bay Russell, PT 01/25/2025 4:30 PM EDT Treatment Outpatient [facility] - [address] [phone] Janey Orozco, CLOTH MEASURER 01/28/2025 5:00 PM EDT Treatment Outpatient [address] [phone] Bay Russell, PT 02/01/2025 4:30 PM EDT Treatment Outpatient [address] [phone] Bay Russell, PT 02/04/2025 4:30 PM EDT Treatment Outpatient [facility] - [address] [phone] Bay Russell, PT Health Maintenance Due Date Last Done Comments Diabetes: Annual Foot Exam 1984 Diabetes: Annual Retina Eye Exam 1984 Hepatitis B Vaccines (1 of 3 - 19+ 3-dose series) 1993 Cervical Cancer Screening: Pap Smear 1995 Pneumococcal Vaccine: 50+ Years (2 of 2 - PCV) 07/02/2020 07/02/2019 Diabetes: Annual GFR (Glomerular Filtration Rate) 08/18/2021 08/18/2020 Colorectal Cancer Screening: Colonoscopy 04/21/2022 Hepatitis C Screening 04/21/2022 Social Influencers of Health Screening 04/21/2022 COVID-19 Vaccine ( season) 2024 05/24/2021, 08/20/2020, 07/22/2020 Zoster Vaccines (1 of 2) 2024 Depression Screening 05/13/2024 Diabetes: Annual Urine Albumin-Creatinine Ratio (uACR) 11/23/2024 08/18/2020, 03/06/2019 Diabetes: Blood Sugar Control Test (HGBA1C) 11/23/2024 Hypertension/CHF/CAD Annual BMP Blood Test 11/23/2024 08/18/2020 Influenza Vaccine (#1) 2025 12/24/2016 Cholesterol Screening (Lipid Panel) 08/18/2025 08/18/2020, 03/06/2019 Breast Cancer Screening 12/12/2025 12/13/19 24, 11/05/2022, 06/07/2021, Additional history exists DTaP,Tdap,and Td Vaccines (2 - Td or Tdap) 01/30/2033 01/30/2023 HIV Screening Completed 03/06/2019 HIB Vaccines Aged Out No longer eligi [...] on patient's age to complete this topic Goals Goal Patient Goal Type Associated Problems Recent Progress Patient-Stated? Author LTG's 12 visits General Yes Bay Russell, PT Note: Pt will report L shoulder pain that does not extend during daily activities. 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 Pt will report increased driving tolerance to 2 hours or better. Pt will demonstrate DNFET of 39 seconds or better. Pt will be Independent and compliant with final HEP. Procedures Procedure Name Priority Date/Time Associated Diagnosis Comments [facility] SCREENING DIGITAL Routine 12/13/2023 3:02 PM EDT Encounter for screening mammogram for malignant neoplasm of breast from Last 3 Months or Most Recently Relevant to Health Maintenance Results * [facility] SCREENING DIGITAL (12/13/2023 3:02 PM EDT) Anatomical Region Laterality Modality Mammography 12/13/2023 1:29 PM EDT Narrative 12/13/2023 3:02 PM EDT [facility] Diagnostic Imaging Department [address] [place] [address] Patient: ABBIE VELASQUEZO.B./Age/Sex: 1975 - 48 - F Unit#: [id number] Location/Status: [facility] CLI Mnemonic/Ordering Site: [facility] Ordering Physician: CAYLA CUNNINGHAM [facility] Screening Digital - 12/13/23 - [id number] Report Status:Signed EXAM: [facility] Screening Digital EXAM DATE AND TIME: 12/13/2023 2:03 PM HISTORY: Screening. COMPARISON: 11/02/22, 06/07/21, 07/20/19 TECHNIQUE: Bilateral digital breast tomosynthesis was performed in the CC and MLO projections. Computer aided detection with [employer] 3D 3.1 was employed. TISSUE DENSITY: b. [...] mammogram BILATERAL in 1 year. Dictating Physician: BRENNEN DOYLE MD Electronically Signed by: BRENNEN DOYLE MD Dic Date/Time: 12/13/231501 Sign date/Time: 12/13/231501 Procedure Note Brennen Doyle MD - 02/26/2024 [facility] Diagnostic Imaging Department [address] [place] [address] Patient: ABBIE VELASQUEZ /Age/Sex: 1975 - 48 - F Unit#: [id number] Location/Status: [facility] CLI Mnemonic/Ordering Site: [facility] Ordering Physician: CAYLA CUNNINGHAM [facility] Screening Digital - 12/13/23 - [id number] Report Status:Signed EXAM: [facility] Screening Digital EXAM DATE AND TIME: 12/13/2023 2:03 PM HISTORY: Screening. COMPARISON: 11/02/22, 06/07/21, 07/20/19 TECHNIQUE: Bilateral digital breast tomosynthesis was performed in the CCand MLO projections. Computer aided detection with iCAD [employer] 3D 3.1was employed. TISSUE DENSITY: b. There [...] mammogram BILATERAL in 1 year. Dictating Physician: BRENNEN DOYLE MD Electronically Signed by: BRENNEN DOYLE MD Dic Date/Time: 12/13/23 1502 Sign date/Time: 12/13/23 1502 Cayla MEDEL IMG BI PROCEDURES Final Resu lt from Last 3 Months or Most Recently Relevant to Health Maintenance Insurance Care Teams Supplies Packer Relationship Specialty Start Date End Date Gemini Larson NP [address] [place] [address] PCP - General 06/06/21
== END 2025-01-08 10:09 | disposition home or self-care (01) ==
LOC: HO.HNS 09:25
PROVIDERS: PCP Physician Assistant Medical; Referring Provider Student in an Organized Health Care Education/Training Program; Visit Provider Neurological Surgery
DX: M51.16 Intervertebral disc disorders with radiculopathy, lumbar region (principal)
CPT/HCPCS: 99204

== ENCOUNTER → 2025-01-08 09:24 | Outpatient (BNVA) | payer OTHER, SELFPAY | PROVIDERS: PCP Physician Assistant Medical; Referring Provider Student in an Organized Health Care Education/Training Program; Visit Provider Neurological Surgery | DX: M51.16 Intervertebral disc disorders with radiculopathy, lumbar region (principal) | CPT/HCPCS: 99202 ==

== ENCOUNTER → 2025-01-22 17:49 | Outpatient (BNV) | payer OTHER, SELFPAY | PROVIDERS: PCP Physician Assistant Medical; Visit Provider Radiology Diagnostic Radiology | DX: M47.816 Spondylosis without myelopathy or radiculopathy, lumbar region (principal); M51.26 Other intervertebral disc displacement, lumbar region | CPT/HCPCS: 72148 ==

== ENCOUNTER 2025-01-22 17:55 | Outpatient (REF) | payer OTHER, SELFPAY ==
--- NOTE | ~2025-01-22 | MR_ITS ---
EXAMINATION: MR LUMBAR SPINE WITHOUT CONTRAST CLINICAL INFORMATION: M51.16. Intervertebral discs disorders with radiculopathy, lumbar region. COMPARISON: None available. TECHNIQUE: MRI of the lumbar spine was obtained using routine sequences without contrast. FINDINGS: Last rib-bearing vertebra labeled T12. There is a subtle bone marrow STIR signal in the posterior elements of L5 and to a lesser extent L4. There is marginal osteophyte formation and disc desiccation at L4-5 and to a lesser extent L3-4 and L5-S1. There is a focal hyperintense T2 signal in the posterior intervertebral disc L4-5 likely focal annular fissure. Grade 1 anterolisthesis L4-5. Grade 1 retrolisthesis L5-S1. Conus medullaris ends at superior endplate of L1 with normal signal. T11-12: Facet joint and ligamentum flavum hypertrophy. No disc herniation. No compression upon neural elements. T12-L1: No disc herniation. No neuroforamina stenosis. L1-2: No disc herniation. No neuroforamina stenosis. L2-3: Broad-based disc bulging. Facet joint and ligamentum flavum hypertrophy. No compression upon neural elements. L3-4: Broad-based disc bulging. Facet joint and ligamentum flavum hypertrophy. Reduced AP diameter of the thecal sac and CSF effacement of the thecal sac as well as bilateral neuroforamina narrowing encroaching the neural elements. L4-5: Right subarticular and foraminal broad-based disc herniation encroaching posterior compressing the right L5 nerve root. Facet joint and ligamentum flavum hypertrophy resulting in CSF effacement of the thecal sac and central spinal canal stenosis. Right neuroforamina and stenosis and left neuroforamina narrowing. L5-S1: Broad-based disc bulging. Facet joint and ligamentum flavum hypertrophy. Reduced AP diameter of the thecal sac and bilateral neuroforamina narrowing encroaching the S1 and likely L5 nerve roots. No prevertebral compartment hematoma, mass or fluid collection. There is a 22 mm mixed iso to hyperintense T2 nodular lesion likely left adrenal gland. MR/MR lumbar spine wo con IMPRESSION: Right subarticular and foraminal herniated disc at L4-5 compressing the right L5 and the right L4 nerve roots. Spondylosis L4-5 and to a lesser extent L5-S1 and L3-4 encroaching the neural elements. 22 mm nodular lesion likely left adrenal gland. Recommend dedicated adrenal mass protocol imaging evaluation with CT versus MRI. Electronically signed by: Terrance Shelton MD 01/25/2025 08:16 AM EDT RP
--- OUTSIDE RECORDS SUMMARY | 2025-01-22 18:01 | XMS_ITS | Patient Health Record ---
Author Organization [facility] Address [address] [id number] Care Team Providers Care It Generalist Name Role Phone SHANICE LINCOLN Unavailable [phone] Allergies Allergen (clinical drug ingredient) Drug/Non Drug Allergy documented on EMR Reaction Allergy Type Onset Date Status Mold Unknown Allergy Active Rodents Unknown Allergy Active Horses Unknown Allergy Active Results Component Value Reference Range Flag Notes THINPREP PAP TEST, Cervix Reviewed date:05/19/2024 05:00:58 PM Interpretation:NIL Performing Lab:[facility], [address], [place], [address] Varinder Paniagua DO Notes/Report: THINPREP PAP TEST NEGATIVE NEGATIVE N -- THIN PREP PAP TEST -- SEX: F : 1975 AGE: 49 [id number] CLINIC ID: [id number] SS: PHYSICIAN: SHANICE LINCOLN CRYSTALLIZER OPERATOR COLLECTED BY: Negative for Intraepithelial Lesion or Malignancy Additional Findings: Endocervical Material Present Specimen Adequacy: Satisfactory for Evaluation Previous History: September 2015 Negative HPV(Neg) Clinical Note: HPV SnyvyyhX83.419 Encounter for gynecological examination (general) (routine) without abnormal pdxqnatqS80.51 Encounter for screening for human papillomavirus (HPV)Z11.3 Encounter for screening for infections with a predominantly sexual mode of transmission, LMP 04/02/2024 Specimen Source: Cervix Visit Type: Routine Performed by: BRYON Curtis (ASCP) (Electronic Signature 05/18/2024 23:44) APTIMA COMBO 2 CT/NG, Cervix Reviewed date:05/18/2024 03:51:57 PM Interpretation:Negative Performing Lab:[facility], [employer], [place], [address] Varinder Paniagua, Notes/Report: GONORRHEA, AMPLIFIED NEGATIVE NEGATIVE N CHLAMYDIA, AMPLIFIED NEGATIVE NEGATIVE N DNA Test Results SEX: F : 1975 AGE: 49 [id number] CLINIC ID: [id number] SS: PHYSICIAN: SHANICE LINCOLN CRYSTALLIZER OPERATOR COLLECTED BY: [id number] Specimen Source: Cervix Specimen Type: ThinPrep PAP Correlating Pap: [id number] Neisseria gonorrhoeae: NEGATIVE Normal Value: Negative Chlamydia trachomatis: NEGATIVE Normal Value: Negative HPV HIGH RISK, Cervix Reviewed date:05/19/2024 10:12:36 AM Interpretation:Negative Performing Lab:[facility], [facility], [place], [address] Varinder Paniagua, Notes/Report: HPV HIGH RISK NEGATIVE NEGATIVE N HPV High Risk DNA Probe Assay SEX: F : 1975 AGE: 49 [id number] CLINIC ID: [id number] SS: PHYSICIAN: SHANICE LINCOLN CRYSTALLIZER OPERATOR COLLECTED BY: Specimen Source: Cervix Specimen Type: ThinPrep Pap Correlating Pap: [id number] Additional High Risk Subtypes* NEGATIVE * Includes 31,33,35,39,45,51,52,56,58,59, 66,68 Subtype 16 NEGATIVE Subtype 18 NEGATIVE Reason [...] tablet as needed Orally every 6 hrs Not-Taking/AR N Baclofen Active Social History Sex Assigned [...] 05/12/2024 Encounters Encounter Location Date Provider Diagnosis [facility] [address] [place] [address] [address] [place], [place] [id number] 05/12/2024 SHANICE LINCOLN Encounter for gynecological examination [...] to date with mammo, had done at [facility], normal as per clt. Discussed [...] Insured Coverage Start Date Coverage End Date [place] [address] [place] [id number] [phone] [id number] Abbie Velasquez Self - patient is the [...]
--- OUTSIDE RECORDS SUMMARY | 2025-01-22 18:01 | XMS_ITS | Clinical Summary ---
Author Organization [address] Address [address] [place], [place] Phone Care Team Providers Care Flatwork Supervisor Name Role Phone Gemini Larson SALEEM Primary Care Provider [phone] Encounters Date Type Department Care Team Description 12/30/2024 5:00 PM EDT Treatment Outpatient Rehabilitation [address] [phone] Janey Orozco, SUPERVISOR MOLD CONSTRUCTION Chronic left shoulder pain (Primary Dx) 12/28/2024 3:30 PM EDT Treatment Outpatient [address] [phone] Bay Russell, PT Chronic left shoulder pain (Primary Dx) 12/18/2024 11:30 AM EDT Treatment Outpatient [address] [phone] Bay Russell, PT Chronic left shoulder pain (Primary Dx) 12/15/2024 11:00 AM EDT Treatment Outpatient [address] [phone] Janey Orozco, SUPERVISOR MOLD CONSTRUCTION Chronic left shoulder pain (Primary Dx) 12/09/2024 2:00 PM EDT Treatment Outpatient [address] [phone] Lolos, Janey H, SUPERVISOR MOLD CONSTRUCTION Chronic left shoulder pain (Primary Dx) 12/08/2024 11:00 AM EDT Treatment Outpatient Rehabilitation - [address] [phone] Janey Orozco, SUPERVISOR MOLD CONSTRUCTION Chronic left shoulder pain (Primary Dx) 12/04/2024 11:00 AM EDT Treatment Outpatient [address] [phone] Janey Orozco, SUPERVISOR MOLD CONSTRUCTION Chronic left shoulder pain (Primary Dx) 12/02/2024 4:30 PM EDT Treatment Outpatient [address] [phone] Janey Orozco, SUPERVISOR MOLD CONSTRUCTION Chronic left shoulder pain (Primary Dx) 11/26/2024 10:30 AM EDT Treatment Outpatient [address] [phone] Janey Orozco, SUPERVISOR MOLD CONSTRUCTION Chronic left shoulder pain (Primary Dx) 11/23/2024 10:30 AM EDT Evaluation Outpatient [facility] - [address] [phone] Bay Russell, PT Pain in left shoulder [...] Care Team (Late st Contact Info) Description 01/25/2025 4:30 PM EDT Treatment Outpatient Rehabilitation - [address] [phone] Janey Orozco, SUPERVISOR MOLD CONSTRUCTION 01/28/2025 5:00 PM EDT Treatment Outpatient [facility] - [address] [phone] Bay Russell, PT 02/01/2025 4:30 PM EDT Treatment Outpatient [facility] - [address] [phone] Bay Russell, PT 02/04/2025 4:30 PM EDT Treatment Outpatient [facility] - [address] [phone] Bay Russell, PT Health Maintenance Due Date [...] of no more than 1/10 max during furnace installer. Pt will report increased driving tolerance to 2 hours or better. Pt will demonstrate DNFET of 39 seconds or better. Pt will be Independent and compliant with final HEP. Procedures Procedure Name Priority Date/Time Associated Diagnosis Comments [facility] SCREENING DIGITAL Routine 12/13/2023 3:02 PM EDT Encounter for screening mammogram for malignant neoplasm of breast from Last 3 Months or Most Recently Relevant to Health Maintenance Results * [facility] SCREENING DIGITAL (12/13/2023 3:02 PM EDT) Anatomical Region Laterality Modality Mammography 12/13/2023 1:29 PM EDT Narrative 12/13/2023 3:02 PM EDT [facility] Diagnostic Imaging Department [address] [place] [address] Patient: ABBIE VELASQUEZ /Age/Sex: 1975 - 48 - F Unit#: [id number] Location/Status: [facility] Mnemonic/Ordering Site: [facility] Ordering Physician: CAYLA CUNNINGHAM [facility] Screening Digital - 12/13/23 - 1403 Report Status:Signed EXAM: [facility] Screening Digital EXAM DATE AND TIME: 12/13/2023 2:03 PM HISTORY: Screening. COMPARISON: 11/02/22, 06/07/21, 07/20/19 TECHNIQUE: Bilateral digital breast tomosynthesis was performed in the CC and MLO projections. Computer aided detection with [employer] 3D 3.1 was employed. TISSUE DENSITY: b. [...] Date/Time: 12/13/23 1502 Sign date/Time: 12/13/23 1502 Procedure Note Brennen Doyle MD - 02/26/2024 [facility] Diagnostic Imaging Department [address] [place], [place] [id number] Patient: VELASQUEZABBIE /Age/Sex: 1975 - 48 - F Unit#: [id number] Location/Status: [facility] CLI Mnemonic/Ordering Site: [facility] Ordering Physician: CAYLA CUNNINGHAM [facility] Screening Digital - 12/13/23 - 1404 Report Status:Signed EXAM: [facility] Screening Digital EXAM DATE AND TIME: 12/13/2023 2:03 PM HISTORY: Screening. COMPARISON: 11/02/22, 06/07/21, 07/20/19 TECHNIQUE: Bilateral digital breast tomosynthesis was performed in the CCand MLO projections. Computer aided detection with iCAD [employer] 3D 3.1was employed. TISSUE DENSITY: b. [...] Most Recently Relevant to Health Maintenance Insurance [facility] MEDICAID ADVANTAGE Care Teams Flatwork Supervisor Relationship Specialty Start Date End Date Gemini Larson NP [address] [place] [id number] PCP - General 06/06/21
--- OUTSIDE RECORDS SUMMARY | 2025-01-22 18:01 | XMS_ITS | Clinical Summary ---
Author Organization [facility] Address [address] [place] [address] Care Team Providers Care Asp Developer Name Role Phone Unavailable Primary Care Provider [...] :Uncontrolled type 2 diabetes mellitus with hyperglycemia ([facility]) 9 Active topiramate (TOPAMAX) 50 mg tabletIndications :Chronic tension-type headache, not intractable topiramate 50 mg tablet Active lancets (FREESTYLE LANCETS) 28 gaugeIndications: Uncontrolled type 2 diabetes mellitus with hyperglycemia ([facility]) Order Freestyle lancets, check sugar daily. Dx: E11.65. 100 Each 2 9 Active blood-glucose meter monitoring kitIndications:Ty pe 2 diabetes mellitus without complication, without long-term current use of insulin ([facility]) as needed for blood glucose [...] low back pain without sciatica [address] [place] into the nostril(s) as needed for opioid [...] 08/18/2020, 0 08/18/2020, 03/06/2019, Additional history exists [id number] ( season) 2024 05/24/2021, 08/20/2020, 07/22/2020 Imm-Pneumococcal [...] complication, without long-term current use of insulin ([facility]) LIPID PANEL Routine 08/18/2020 10:10 AM EDT Type 2 diabetes mellitus without complication, without long-term current use of insulin ([facility]) Hyperlipidemia LDL goal <70 ANTIBODY HIV-1&HIV-2 SINGLE RESULT Routine 03/06/2019 11:32 AM EDT Uncontrolled type 2 diabetes mellitus with hyperglycemia ([facility]) from Last 3 Months or Most Recently Relevant to Health Maintenance Results * HISTORIC MAMMOGRAM (06/07/2021 3:00 AM EST) 06/07/2021 3:00 AM EST Gemini Larson [facility] MAMMO Edited Result - Final * COMPRE METAB PANEL (08/18/2020 10:10 AM EDT) GLUCOSE 88 65 - 99 mg/dL [employer] [facility] Comment: Fasting reference interval UREA NITROGEN (BUN) 15 7 - 25 mg/dL [employer] [facility] CREATININE (blood) 0.65 0.50 - 1.10 mg/dL [employer] [facility] GFR ESTIMATED 106 > OR = 60 mL/min/1 .73m2 [employer] [facility] EGFR 123 > OR = 60 mL/min/1 .73m2 [employer] [facility] BUN/CREATININE RATIO NOT APPLICABLE 6 - 22 [employer] [facility] SODIUM 137 135 - 146 mmol/L [employer] [facility] POTASSIUM 4.3 3.5 - 5.3 mmol/L [employer] [facility] CHLORIDE 103 98 - 110 mmol/L [employer] [facility] CARBON DIOXIDE 29 20 - 32 mmol/L [employer] [facility] CALCIUM 9.2 8.6 - 10.2 mg/dL [employer] [facility] PROTEIN, TOTAL 6.7 6.1 - 8.1 g/dL [employer] [facility] ALBUMIN 4.2 3.6 - 5.1 g/dL [employer] [facility] GLOBULIN 2.5 1.9 - 3.7 g/dL (calc) [employer] [facility] ALBUMIN/GLOBUL IN RATIO 1.7 1.0 - 2.5 (calc) [employer] [facility] BILIRUBIN, TOTAL 0.4 0.2 - 1.2 mg/dL [employer] [facility] ALKALINE PHOSPHATASE 63 31 - 125 U/L [facility] AST 16 10 - 35 U/L [facility] ALT 10 6 - 29 U/L [facility] Blood Blood / Unknown 08/18/2020 1 0:10 AM EDT 08/18/2020 10:10 AM EDT Narrative [facility] - 08/18/2020 8:09 PM EDT FASTING:YES Gemini Larson [facility] - BLOOD DRAW Final Result [facility] [address] [address], [employer] [facility] [address] [address] * HIV-1 & HIV-2 ANTIBODIES (03/06/2019 11:32 AM EDT) [facility] HIV 1 AND 2 ANTIBODY SCREEN NEGATIVE NEGATIVE [facility] Comment: This assay is a 4th [...] AM EDT 03/06/2019 11:47 AM EDT [facility] - 03/06/2019 4:45 PM EDT [email or web address], a member of [address] [address] Senior Hr Generalist - Rayna Masters MD PT ID [id number] ORD# [id number] Gemini L[facility] - BLOOD DRAW Final Result [facility] [employer] [address], from Last 3 Months or Most Recently Relevant to Health Maintenance Insurance [employer]
== END 2025-01-22 17:56 | disposition home or self-care (01) ==
LOC: HO.MRI 17:55
PROVIDERS: PCP Physician Assistant Medical; Visit Provider Neurological Surgery
DX: M51.16 Intervertebral disc disorders with radiculopathy, lumbar region (principal)
CPT/HCPCS: 72148

== ENCOUNTER → 2025-02-02 12:30 | Outpatient (BNV) | payer OTHER, SELFPAY | PROVIDERS: PCP Physician Assistant Medical; Visit Provider Internal Medicine Cardiovascular Disease | DX: R00.1 Bradycardia, unspecified (principal) | CPT/HCPCS: 93010 ==

== ENCOUNTER 2025-03-03 06:54 | Day surgery (SDC) | payer OTHER, SELFPAY ==
--- OUTSIDE RECORDS SUMMARY | 2025-01-13 16:21 | XMS_ITS | Patient Health Record ---
Author Organization [facility] Address [address] [id number] Care Team Providers Care Medical Facilities Section Director Name Role Phone SHANICE LINCOLN Unavailable [phone] Allergies Allergen (clinical drug ingredient) Drug/Non Drug Allergy documented on EMR Reaction Allergy Type Onset Date Status Mold Unknown Allergy Active Rodents Unknown Allergy Active Horses Unknown Allergy Active Results Component Value Reference Range Flag Notes HPV HIGH RISK, Cervix Reviewed date:05/19/2024 10:12:36 AM Interpretation:Negative Performing Lab:[facility], [place], [address] Varinder Paniagua DO Notes/Report: HPV HIGH RISK NEGATIVE NEGATIVE N HPV High Risk DNA Probe Assay SEX: F : 1975 AGE: 49 [id number] CLINIC ID: [id number] SS: PHYSICIAN: SHANICE LINCOLN DENTISTRY PROFESSOR COLLECTED BY: Specimen Source: Cervix Specimen Type: ThinPrep Pap Correlating Pap: [id number] Additional High Risk Subtypes* NEGATIVE * Includes 31,33,35,39,45,51,52,56,58,59, 66,68 Subtype 16 NEGATIVE Subtype 18 NEGATIVE [address] COMBO 2 CT/NG, Cervix Reviewed date:05/18/2024 03:51:57 PM Interpretation:Negative Performing Lab:[facility], [place], [place], [address] Varinder Paniagua DO Notes/Report: GONORRHEA, AMPLIFIED NEGATIVE NEGATIVE N CHLAMYDIA, AMPLIFIED NEGATIVE NEGATIVE N DNA Test Results SEX: F : 1975 AGE: 49 [id number] CLINIC ID: [id number] SS: PHYSICIAN: SHANICE LINCOLN DENTISTRY PROFESSOR COLLECTED BY: [id number] Specimen Source: Cervix Specimen Type: ThinPrep PAP Correlating Pap: [id number] Neisseria gonorrhoeae: NEGATIVE Normal Value: Negative Chlamydia trachomatis: NEGATIVE Normal Value: Negative THINPREP PAP TEST, Cervix Reviewed date:05/19/2024 05:00:58 PM Interpretation:NIL Performing Lab:[facility], [address], [place], [address] Varinder Paniagua DO Notes/Report: THINPREP PAP TEST NEGATIVE NEGATIVE N -- THIN PREP PAP TEST -- SEX: F : 1975 AGE: 49 [id number] CLINIC ID: [id number] SS: PHYSICIAN: SHANICE LINCOLN DENTISTRY PROFESSOR COLLECTED BY: Negative for Intraepithelial Lesion or Malignancy Additional Findings: Endocervical Material Present Specimen Adequacy: Satisfactory for Evaluation Previous History: September 2015 Negative HPV(Neg) Clinical Note: HPV HyjyhkpB64.419 Encounter for gynecological examination (general) (routine) without abnormal ugmqfbjoS92.51 Encounter for screening for human papillomavirus (HPV)Z11.3 [...] tablet as needed Orally every 6 hrs Not-Taking/IL N Baclofen Active Social History Sex Assigned [...] 05/12/2024 Encounters Encounter Location Date Provider Diagnosis [facility] [address] [place] [address] [address] [place], [place] [id number] 05/12/2024 SHANICE LINCOLN Encounter for gynecological examination [...] to date with mammo, had done at [facility], normal as per clt. Discussed [...] Insured Coverage Start Date Coverage End Date [place] ATT CLAIMS [address] [place] [id number] Abbie Velasquez Self - patient is the [...]
--- OUTSIDE RECORDS SUMMARY | 2025-01-13 16:21 | XMS_ITS | Clinical Summary ---
Author Organization [address] Address [address] [place], [place] Phone Care Team Providers Care Manager Systems Name Role Phone Gemini Larson SALEEM Primary Care Provider [phone] Encounters Date Type Department Care Team Description 12/30/2024 5:00 PM EDT Treatment Outpatient Rehabilitation [address] [phone] Janey Orozco, PLYWOOD LAYUP LINE CORE LAYER Chronic left shoulder pain (Primary Dx) 12/28/2024 3:30 PM EDT Treatment Outpatient [address] [phone] Bay Russell, PT Chronic left shoulder pain (Primary Dx) 12/18/2024 11:30 AM EDT Treatment Outpatient [address] [phone] Bay Russell, PT Chronic left shoulder pain (Primary Dx) 12/15/2024 11:00 AM EDT Treatment Outpatient [address] [phone] Janey Orozco, [employer]AYUP LINE CORE LAYER Chronic left shoulder pain (Primary Dx) 12/09/2024 2:00 PM EDT Treatment Outpatient [address] [phone] Lolos, Janey H, [employer]AYUP LINE CORE LAYER Chronic left shoulder pain (Primary Dx) 12/08/2024 11:00 AM EDT Treatment Outpatient Rehabilitation - [address] [phone] Janey Orozco, [employer] LAY[employer] LINE CORE LAYER Chronic left shoulder pain (Primary Dx) 12/04/2024 11:00 AM EDT Treatment Outpatient [address] [phone] Janey Orozco, [employer] LAY[employer] LINE CORE LAYER Chronic left shoulder pain (Primary Dx) 12/02/2024 4:30 PM EDT Treatment Outpatient [address] [phone] Janey Orozco, [employer] LAY[employer] LINE CORE LAYER Chronic left shoulder pain (Primary Dx) 11/26/2024 10:30 AM EDT Treatment Outpatient [address] [phone] Janey Orozco, [employer]AY[employer] LINE CORE LAYER Chronic left shoulder pain (Primary Dx) 11/23/2024 10:30 AM EDT Evaluation Outpatient [facility] - [address] [phone] Bay Russell, PT Pain in left shoulder [...] 5:00 PM EDT Treatment Outpatient Rehabilitation - [address] [phone] Bay Russell, PT 01/25/2025 4:30 PM EDT Treatment Outpatient [facility] - [address] [phone] Janey Orozco, PL[employer] LAYUP LINE CORE LAYER 01/28/2025 5:00 PM EDT Treatment Outpatient [address] [phone] Bay Russell, PT 02/01/2025 4:30 PM EDT Treatment Outpatient [address] [phone] Bay Russell, PT 02/04/2025 4:30 PM EDT Treatment Outpatient [facility] - [address] [phone] Bay Russell, PT Health Maintenance Due Date [...] 04/21/2022 Social Influencers of Health Screening 04/21/2022 Zoster Vaccines (1 of 2) 2024 Depression Screening 05/13/2024 Diabetes: Annual Urine Albumin-Creatinine Ratio (uACR) 11/23/2024 08/18/2020, 03/06/2019 Diabetes: Blood Sugar Control Test (HGBA1C) 11/23/2024 Hypertension/CHF/CAD Annual BMP Blood Test 11/23/2024 08/18/2020 COVID-19 Vaccine ( season) 2025 05/24/2021, 08/20/2020, 07/22/2020 Influenza Vaccine (#1) 2025 12/24/2016 Cholesterol Screening [...] of no more than 1/10 max during bench manager. Pt will report increased driving tolerance to 2 hours or better. Pt will demonstrate DNFET of 39 seconds or better. Pt will be Independent and compliant with final HEP. Procedures Procedure Name Priority Date/Time Associated Diagnosis Comments [facility] SCREENING DIGITAL Routine 12/13/2023 3:02 PM EDT Encounter for screening mammogram for malignant neoplasm of breast from Last 3 Months or Most Recently Relevant to Health Maintenance Results * [facility] SCREENING DIGITAL (12/13/2023 3:02 PM EDT) Anatomical Region Laterality Modality Mammography 12/13/2023 1:29 PM EDT Narrative 12/13/2023 3:[address] [facility] Diagnostic Imaging Department [address] [place] [address] Patient: ABBIE VELASQUEZO.B./Age/Sex: 1975 - 48 - F Unit#: [id number] [facility] CLI Mnemonic/Ordering Site: [facility] Ordering Physician: CAYLA CUNNINGHAM [facility] Screening Digital - 12/13/23 - [id number] Report Status:Signed EXAM: [facility] Screening Digital EXAM DATE AND TIME: 12/13/2023 2:03 PM HISTORY: Screening. COMPARISON: 11/02/22, 06/07/21, 07/20/19 TECHNIQUE: Bilateral digital breast tomosynthesis was performed in the CC and MLO projections. Computer aided detection with [employer] 3D 3.1 was employed. TISSUE DENSITY: b. [...] Procedure Note Brennen Doyle MD - 02/26/2024 [facility] Diagnostic Imaging Department [address] [place] [address] Patient: ABBIE VELASQUEZ /Age/Sex: 1975 - 48 - F Unit#: [id number] [facility] CLI Mnemonic/Ordering Site: [facility] Ordering Physician: CAYLA CUNNINGHAM [facility] Screening Digital - 12/13/23 - [id number] Report Status:Signed EXAM: [facility] Screening Digital EXAM DATE AND TIME: 12/13/2023 2:03 PM HISTORY: Screening. COMPARISON: 11/02/22, 06/07/21, 07/20/19 TECHNIQUE: Bilateral digital breast tomosynthesis was performed in the CCand MLO projections. Computer aided detection with iCAD [employer] 3D 3.1was employed. TISSUE DENSITY: b. There [...] Relevant to Health Maintenance Insurance Care Teams Manager Systems Relationship Specialty Start Date End Date Gemini Larson NP [address] [place] [address] PCP - General 06/06/21
--- NOTE | 2025-02-02 | ECG_ITS ---
Test Reason : PREOP Blood Pressure : */* mmHG Vent. Rate : 56 BPM Atrial Rate : 56 BPM P-R Int : 172 ms QRS Dur : 96 ms QT Int : 396 ms P-R-T Axes : 44 12 3 degrees QTcB Int : 382 ms Sinus bradycardia Moderate voltage criteria for LVH, may be normal variant ( R in aVL , [employer] product ) Borderline ECG When compared with ECG of 19-May-2024 17:09, No significant change was found Referred By: Nell Nieves Electronically Signed By: Srinivasa Villa
[2025-02-02 11:34] VITALS: BP 133/79; PULSE 72; RESP 16; O2SAT 98; BMI 32.8
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
[2025-02-02 14:18] LABS: Hematocrit 37.1 % (37.0-47.0); Hemoglobin 12.3 g/dl (12.0-16.0); Mean Corpuscular HGB Conc 33.2 g/dl (31.0-35.0); Mean Corpuscular Hemoglobin 29.1 pg (27.0-33.0); Mean Corpuscular Volume 87.7 fL (80.0-98.0); NRBC Abs Auto 0.000 X10*3/uL (0.0-0.012); NRBC Pct Auto 0.0 /100WBC (0.0-0.2); Platelet Count 229 X10*3/uL (160-400); Red Blood Count 4.23 X10*6/uL (4.20-5.50); White Blood Count 7.1 X10*3/uL (4.8-10.8)
[2025-02-02 14:44] LABS: Anion Gap 8 (12-20); Blood Urea Nitrogen 18 mg/dL (9-16); Calcium 9.4 mg/dL (8.4-10.2); Carbon Dioxide 30 mmol/L (22-29); Chloride 110 mmol/L (96-108); Creatinine Clr Calc Pharmacy 93.1; Estimated Glomerular Filt Rate > 60; Potassium 4.3 mmol/L (3.3-5.1); Sodium 144 mmol/L (135-145)
[2025-03-03] VITALS (10 sets, daily range): BP systolic 103–117; BP diastolic 54–64; PULSE 62–90; RESP 10–20; TEMP 36.1; O2SAT 90–100; BMI 33.6
--- NOTE | ~2025-03-03 | FL_ITS ---
EXAMINATION: XR FLUOROSCOPY WITH IMAGES CLINICAL INFORMATION: Right L4-5 decompression COMPARISON: None available. TECHNIQUE: Fluoroscopy provided to: Dr. Mathur Fluoroscopy time: 4 seconds DAP: 1.2 mGycm2 Images: 2 FINDINGS: 2 intraoperative images, with surgical instruments projected posterior to the lower lumbar spine. See operative report for details. FL/FL guidance in OR IMPRESSION: As above Electronically signed by: Henry Bell MD 03/04/2025 10:54 AM EDT
--- NOTE | 2025-03-03 06:58 | MHC.SHP ---
Pre-Procedural Eval Section A - 24 Hr Update-Section A only Date of Service: 03/03/25 Section B - Complete if H&P > 30 days Chief Complaint: Intervertebral disc disorders with radiculopathy, Allergies: Allergies Allergy/AdvReac Type Severity Reaction Status Date / Time morphine (MORPHINE) Allergy Unknown RESP Verified 01/27/25 07:12 DEPRESSION, SOB Review of Systems Sugical H&P ROS: Negative: Constitution, Cardiovascular, Respiratory, Neurological, Psychiatric, Hem-Onc, Allergic/Immunologic, Gastrointestinal, Genitourinary, Musculoskeletal, Integumentary, Endocrine and Eyes/Ears/Nose/Throat Exam Surgical H&P Exam: Not Evaluated: HEENT, Not Evaluated: Heart, Not Evaluated: Lungs, Not Evaluated: Extremities, Not Evaluated: Abdomen, Not Evaluated: Skin and Not Evaluated: Neurological Exam Comment: The patient is awake, alert, no acute distress. Proposed surgical incision site is clean, dry, with no signs of recent trauma. Plan Diagnosis/Plan: Unchanged I have reviewed the history and physical and performed a pertinent physical examination on my patient. No changes have occurred unless specified. Plan remains the same, right L4-5 lumbar decompression Time Spent With Patient Time: Total time managing care of this patient today __6__ minutes.
[2025-03-03 07:13] LABS: UPreg QC Valid YES
[2025-03-03] MEDS: Lactated Ringers 1,000 ML 100 ML IVCONT (07:26)
--- NOTE | 2025-03-03 11:01 | P.DS_ITS ---
DS: Providers Provider Date of Service: 03/03/25 Date of discharge: 03/03/25 Primary care physician: GIANFRANCO Dumont DS: Summary Time Attestation Discharge Coordination Time (in mins): 12 Quality: Safe Use of Opioids Does Pt have an Active Cancer Diagnosis on the Problem List?: No Quality: Stroke Does the patient have a stroke diagnosis?: No Physical Exam Vital Signs: Vital Signs: Last Vital Signs Temp 96.9 F 03/03/25 07:06 Pulse 77 03/03/25 07:06 Resp 20 03/03/25 07:06 BP 113/64 03/03/25 07:06 Pulse Ox 99 03/03/25 07:06 O2 Del Method Room Air 03/03/25 07:06 BMI result Body Mass Index 33.6 DS: Data Data Completed and Pending Labs on day of discharge: Laboratory Results - last 24 hr 03/03/25 07:00 Urine Test NEGATIVE Discharge Plan Discharge Patient Disposition: Home, Self-Care Referrals: Gio Duque PA [Primary Care Provider, Medical] - 1 Week Discharge Medications: New oxycodone 5 mg tablet 5 mg PO Q6H PRN (Reason: pain) Qty: 20 0RF Rx Instructions: Partial Fill upon patient request. Continued melatonin 3 mg Tablet 3 mg PO BEDTIME PRN (Reason: Insomnia) acetaminophen 650 mg tablet extended release 1,300 mg PO Q8H PRN (Reason: Pain) lidocaine [Lidoderm] 5 % Adhesive Patch,Medicated transdermal 3XW omeprazole 20 mg capsule,delayed release(DR/EC) 20 mg PO DAILY PRN (Reason: Acid Reflux) albuterol sulfate 90 mcg/actuation Hfa Aerosol Inhaler 2 puff INHALATION Q6H PRN (Reason: Shortness Of Breath Or Wheezing) cholecalciferol (vitamin D3) [Vitamin D3] 25 mcg (1,000 unit) Capsule 25 mcg PO DAILY diclofenac sodium 1 % Gel 2 g TOPICAL BID Rx Instructions: apply to single elbow, wrist or hand; for hand includes palm/fingers/back of hand loratadine 10 mg Capsule 10 mg PO DAILY PRN (Reason: Allergy Symptoms) Metamucil 3.4 gram/5.4 gram Powder 1 tsp PO DAILY PRN (Reason: Constipation) Rx Instructions: mix into at least 4 oz water or juice before administering Nexplanon 68 mg Implant SUBDERMAL baclofen 5 mg tablet 10 mg PO TID topiramate 50 mg capsule,sprinkle,ER 24hr 50 mg PO BEDTIME lisinopril 5 mg tablet 5 mg PO DAILY Held meloxicam 15 mg tablet 15 mg PO DAILY Hold Instructions: Resume on 03/04/25. ibuprofen 600 mg tablet 600 mg PO Q6H PRN (Reason: Pain) Hold Instructions: Resume on 03/04/25. Discharge Orders: Discharge Order (Routine); Ordered 03/03/25 Ordered By: Georgi Mccord Diet: Advance to usual diet Activity on Discharge: As tolerated Activity Restrictions/Additional Instructions: After your spinal surgery we ask you to observe the following restrictions/guidelines: Activity: It is normal to feel some discomfort as you increase your activity, but that will improve with time. We ask you avoid heavy lifting or acitivities that cause pain. As a general rule, 8lbs is a safe limit for lifting right after surgery. Walk as much as you feel comfortable but not to exhaustion. You will feel extra tired the first few days after surgery. Stay well hydrated. It is OK to walk up and down stairs You may return to driving when you are off narcotics (such as vicodin, oxycodone, dilaudid, etc), and you are back to normal functional capacity. If you have any concerns please check with office before driving. Return to work is specific to each patient and each surgery, so please speak with your doctor/PA at first follow up. Please bring paperwork such as FMLA at that time if you need it filled out. Medications: We recommend you take 500mg Tylenol every 4 hours for the first week after surgery, if you do not have any liver issues and can tolerate this medication. Do not exceed 4,000mg daily. We also recommend you take Ibuprofen 600mg every 8 hours for the first week after surgery starting on post op day 1, ?if you do not have any kidney or sugar control issues and can tolerate this medication. Do not exceed 2,000mg daily. We will give you a short supply of narcotics after surgery (usually one weeks worth). If you need more please call the office but do not use more than prescribed. You will need to give our office 48 hours notice if you need narcotics refilled and we do not fill narcotics on weekends or evenings. If you are on a narcotic, it is a good idea to take a stool softener such as colace or senna to avoid constipation If you take blood thinner such as aspirin, Plavix, Coumadin, Effient, Eliquis etc for conditions such as Afib, DVT, Pulmonary embolus, coronary disease, sten ts etc please speak with your surgeon about specific details as to when you can resume these medications. You can resume NSAIDs on post op day 1 (eg: Motrin, Naproxen, etc). Follow up: Please call the office, , after surgery to arrange a 3 week follow up for wound check. Wound Care: You may remove your dressing on the first day after surgery. ?You may ?leave open to air. Please do not remove the steri strips underneath. they will fall off on their own in one week. IT IS NORMAL FOR THE WOUND TO OOZE OR BE BLOODY FOR A FEW DAYS AFTER SURGERY. ?IF THIS HAPPENS JUST PLACE NEW DRESSING OVER IT TO AVOID STAINING CLOTHES. You may shower on post op day # 1 We ask that you do not let the water soak the wound. If it does get wet, just towel dry lightly. Please do not scrub your incision or place any type of chemical/ointment on the wound. No tub baths, pools or jacuzzis for one month. If you have any leaking or redness from your wound, or fevers, please call the office. Print Language: Montenegrin
--- NOTE | 2025-03-03 11:01 | P.OP_ITS ---
Operative Note Operative Note Date of Service: 03/03/25 Narrative: Preoperative Diagnosis: Right L4-5 spinal stenosis/lateral recess stenosis Operation: Right L4-5 Laminotomy, Partial facetectomy and diskectomy with use of microscope Consent Informed Consent was obtained for this operation. I have explained the nature, purpose and benefits of the operation. I have discussed the risks and benefit of the operation including possible complications or adverse events with patient/family. Alternative(s) were discussed with the patient with their relative benefits and risks as well as the consequences of not accepting the operation were included in obtaining consent. Surgeon: VIVIANA TRAYLOR MD, PHD Procedure Assisted By: Georgi Mccord [facility] Description of Procedure This 49-year-old female suffering from a right L5 radiculopathy due to right L4- 5 lateral recess stenosis caused by degenerative changes and disc material. The patient was offered a decompression. The procedure complications were explained. The patient was consented. The patient was brought to the operating room and endotracheally intubated. The patient was turned in prone position on the Vidal frame. Prep and drape was done followed by timeout. The Physician quality assurance assistant provided access. A mid lumbar incision was made followed by release of the paravertebral muscle on the right side to expose the L4-5 lamina and facet joints. An intraoperative x-ray was obtained to confirm the correct level. The microscope was brought in. I took over the procedure. The high-speed drill was used to do a right L4-5 laminotomy until flavum ligament was reached. A #2 Kerrison was used to expand the laminotomy near flush to the pedicles and to include a partial facetectomy. The flavum ligament was opened and resected with a #3 Kerrison to decompress the underlying thecal sac. The flavum ligament was removed to decompress the lateral recess and the exiting L5 nerve root. I retracted the L5 nerve root and found some disc material sitting medial from the nerve root which was also accordingly resected to further decompress the L5 nerve root. A long nerve hook could be easily passed along the medial side of the pedicle as a sign of adequate decompression. The microscope was removed. Hemostasis was done. The physician quality assurance assistant close the Incision in 2 layers. Steri-Strips were used to approximate incision. An OpSite with Tegaderm was used to cover the incision. All sponge needle counts were correct. Patient was extubated and transported in stable is to recovery room. Anesthesia: General Estimated Blood Loss (ml): 10 Complications: None Duration of Surgery: Under 60 Minutes Postoperative Plan: Discharge to home
== END 2025-03-03 13:27 | disposition home or self-care (01) ==
PROVIDERS: Nurse Practitioner; PCP Physician Assistant Medical; Visit Provider Neurological Surgery
PROC: (CPT 63047; principal; 2025-03-03 09:30)
DX: M51.16 Intervertebral disc disorders with radiculopathy, lumbar region (principal); M48.061 Spinal stenosis, lumbar region without neurogenic claudication; M54.50 Low back pain, unspecified; M79.661 Pain in right lower leg; R26.89 Other abnormalities of gait and mobility; R26.2 Difficulty in walking, not elsewhere classified; I42.9 Cardiomyopathy, unspecified; Z90.3 Acquired absence of stomach [part of]; Z98.84 Bariatric surgery status; Z79.899 Other long term (current) drug therapy; Z88.5 Allergy status to narcotic agent; Z56.0 Unemployment, unspecified
CPT/HCPCS: 63047; 36415; 80048; 81025; 85027; 93005; J0131; J0330; J0690; J1171; J1885; J2003; J2250; J2405; J2704; J3010

== ENCOUNTER → 2025-03-03 06:54 | Outpatient (BNV) | payer OTHER, SELFPAY | PROVIDERS: PCP Physician Assistant Medical; Visit Provider Neurological Surgery | DX: M51.16 Intervertebral disc disorders with radiculopathy, lumbar region (principal) | CPT/HCPCS: 63047; 99499 ==

== ENCOUNTER 2025-03-24 13:02 | Outpatient (AMB) | payer OTHER, SELFPAY ==
--- NOTE | 2025-03-24 13:03 | A.SPINEOV_ITS ---
Intake Visit Reasons: 1st post op Intake Note: Ms. Velasquez is here today for her 1st post op. 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 Mathur. She reprots that the bulk of her pain has persisted since her surgery. We extensively discussed this. In his likely that she is suffering from a course of postoperative inflammation, and may just need some more time to heal and were to start having her pain be relieved. Given this she has been doing fairly well with pain control and has been utilizing primarily [id number] medications in the occasional oxycodone throughout the day or before bed. She did request a refill for this medication. No new neurological deficits. The patient ambulates well and rises from a seated position without difficulty. Her posterior incision site is closed and well healing. I would like to follow up with Abbie again in 6 weeks for her 2nd postoperative visit. I will send in a refill for her medication. Georgi Mathur MD,PhD [facility] [place] Medications: Refilled oxycodone Partial Fill upon patient request. 5 mg PO Q6H PRN 20 tabs 0RF pain Coding Level of Care Code Global (30919) Diagnoses Lumbar disc herniation with radiculopathy M51.16
--- OUTSIDE RECORDS SUMMARY | 2025-03-24 15:46 | XMS_ITS | Data Portability ---
Author Organization [place] - [facility], Allergy Address [address] [address] Care Team Providers Care Brass And Wind Instrument Repairer Name Role Phone CAYLA CUNNINGHAM Referring Provider [phone] Assessment Encounter Date Assessment Date Assessment LastModified [...] exam is benign. Audiometric testing performed at [facility] 08/26/24 demonstrated normal sloping to mild sensorineural hearing loss bilaterally. Patient is a candidate for amplification and medical clearance was provided today. She will follow-up for yearly audiometric testing. [email or web address] Not available 10/09/2024 11:15:26 01/13/2025 01/13/2025 49-year-old female presents for review of allergy testing and CT sinus. CT sinus 10/30/2024 with mucosal thickening of the left maxillary sinus, but paranasal sinuses are otherwise clear without evidence of sinusitis. Allergy testing demonstrated moderate to severe reactions to trees, weeds, molds, grasses, cockroach, dust mite, cat, and dog. Patient is a candidate for immunotherapy. She is interested in food allergy testing and would like to proceed with SCIT at the same practice as her food allergy testing. Referral to [facility] placed today. Epipen was prescribed. Also recommended trial of Azelastine in addition to Flonase and Claritin. She may follow up as needed for any future concerns. MRI brain may be considered for further evaluation of phantosmia if symptoms persist or worsen. [email or web address] Not available 01/13/2025 10:04:18 Plan of Treatment Reminders Order Date Submit Date Provider Last Modified By Organization Details Last Modified Time Details Appointments None recorded. Lab None recorded. 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 Imaging CT, sinuses, w/o contrast 2024 025 [facility], [address], [address], [place], [address], 07:02:13 Medication Orders epinephrin e 0.3 mg/0.3 mL injection, auto-injec tor 2024 025 [facility], [address] [place], [address], 10:34:33 azelastine 137 mcg (0.1 %) nasal spray 2024 025 [facility], [address] [place], [address], 10:32:18 Flonase Allergy Relief 50 mcg/actuat ion nasal spray,susp ension 2024 025 [facility], [address] [place], [address], 16:28:19 Claritin 10 mg tablet 2024 025 [facility], [address] [place] [address], [address], 10:01:12 Patient TargetsNo targets recorded. Patient Instructions Encounter Date Encounter Id Patient Instructions Last Modified By Organization Details Last Modified Time 12/01/2024 [id number] spirometry testing* [place] Not avail able 12/01/2024 11:35:33 Nursing Documentation for Allergy Testing: Ordering Provider Dr. Doe Weight:lbs:193 kg: PFT Yes With Bronchodilator no approval needed to proceed with allergy testing? Yes Dr. Doe ok'd testing sent message for him to review since test not done todayHistory of Asthma:Yes Asthma Meds:ventolin Last used: 3 months ago Asthma exacerbated by: Chance that : No Fear of needles: No Regular medications reviewed in Computer: Yes Medication allergies: Reviewed Antihistamine use: Yes Medications used:loratadine Food Allergies:see below Any foods make your mouth feeling itchy: Yes If yes: areli, watermelon, pineapple, broccoli, apples, bananas all give h/a History of severe reaction where had to go to ER? Yes If yes details: not sure what was done or given, Happ[place] a [place] Type of heat in home: Baseboard Pets: Yes If yes:dogs and cats Smoker: Never If former smoker-how much / day for how long When quit years ago Smoking now-how much /day for how long Occupation/Social History: Symptoms having: Other If other:dry nose Frequency Spirometry Contraindications: Heart attack in the last 3 months: No Major surgery in last 3 months: No Detached retina(serious eye issues) in last 2 months: No Hospitilization in last month: No Proceed with PFT Yes approval needed: No Nursing Notes: Pt tolerated test well Benadryl cream to test sites Patient became syncopal-placed in supine position Large reactions to MQT, reschedule IDT for a different date Other:Pt was taking loratadine up until 3 days prior to allergy testing. PFT was done but shows a mild restriction so a message was sent to Dr. 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 [email or web address] [facility] [address] [address], [place], [address], 01/05/2025 09:01:46 12/02/19 amrik metry testi ng* No observ ation record ed. [email or web address] Not Available 2024 09:34:11 Result Notes None recorded. 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 SAUNDRA DA SILVA PA-C [address] [place] [address], [address], [facility] 11:08:49 Sensorineural hearing loss of bilateral ears 358328208 Active 2024 SAUNDRA DA SILVA PA-C [address] [place], [place] [address] [place], [place], [address], [facility] 11:15:43 Perennial allergic rhinitis 362042347 Active 2024 LEONEL NO, RMA 100 [facility] 100, [place], [address], [facility] 09:26:35 Problem Notes None recorded. Procedures Surgical History Date Name Laterality Status Provider Name and Address Organization Details Recorded Time 12/30/19 Allergy Testing INTRADREMAL(IDT) Only completed ZENIA GUO RN [address], [address], [facility] 12/29/2024 11:53:08 12/26/19 Allergy Testing Modified- Quantitative Testing (MQT) Only completed Gregg Martinez [address], [address], [facility] 12/25/2024 09:46:47 10/10/19 NasalEndoscopy_D P completed SAUNDRA DA SILVA PA-C [address], [address], [facility] 10/09/2024 11:08:38 Imaging Results None recorded. Procedure Notes None recorded. Medical Equipment None Reported. Allergies Allergen ID Allergen Name Allergen Category Reaction Reaction Severity Criticality Documentation Date Start Date Code Code System Note Provider Name and Address Organization Details Recorded Time 431795 morphine medicatio n Not available Not available Not available 10/09/2024 7052 [facility] 10:32:46 Medications Name Sig Start Date Stop Date Status Note LastModified by Organization Details LastModified Time meloxicam 15 mg tablet active Not Available Not Available No t Available melatonin 3 mg tablet active Not Available Not Available No t Available baclofen 10 mg tablet active Not Available Not Available No t Available omeprazole 20 mg capsule,lorin yed release active Not Available Not Available Not Available lisinopril 5 mg tablet active Not Available Not Available No t Available azelastine 137 mcg (0.1 %) nasal spray [place] 2 sprays twice a day by intranasal route for 30 days. active Not Available Not Available No t Available epinephrine 0.3 mg/0.3 mL injection, auto-injecto r Take 1 auto by injection route for 1 day, for anaphylaxis . active Not Available Not Available No t Available fluticasone propionate 50 mcg/actuatio n nasal spray,suspen sima [place] 2 sprays every day by intranasal route [...] Updated DateTime 10/09/2024 162.56 cm 32.6 kg/m2 29087.55 g Jumana Hunt [facility] 10/09/2024 10:32:27 Date Recorded Body height Body mass index (BMI) Body weight Oxygen saturation Oxygen saturation in Arterial blood by Pulse oximetry Heart rate Systolic And Diastolic Provider Name and Address Organization Details Last Updated DateTime 5 162.56 cm 33.1 kg/m2 25675.3 3 g 97 % 97 % 63 /min 112/76 mm[Hg] LEONEL RICKEYROSSY [facility] [address], [address], [facility] 5 09:22:08 Date Recorded Body height Oxygen saturation Oxygen saturation in Arterial blood by Pulse oximetry Heart rate Body mass index (BMI) Body weight Systolic And Diastolic Provider Name and Address Organization Details Last Updated DateTime 5 162.56 cm 97 % 97 % 70 /min 33 kg/m2 37121.7 4 g 117/81 mm[Hg] Gregg Martinez [address] [address], [place], [address], [facility] 5 09:17:06 Date Recorded Body height Provider Name an d Address Organization Details Last Updated DateTime 12/29/2024 162.56 cm ZENIA GUO RN [address] [place] [address], [address], [place] - [facility] [place] 12/29/2024 11:22:59 Date Recorded Body height Body mass index (BMI) Body weight Provider Name and Address Organization Details Last Updated DateTime 01/13/2025 160.66 cm 34.4 kg/m2 38223.1 g Jumana Hunt [place] - [facility] [place] 01/13/2025 09:18:25 Social History None recorded. Functional Status None recorded. Mental Status None recorded. Family History Nothing Reported. Medical History No medical history recorded. Gynecological HistoryNo gynecological history recorded. Obstetrics History GPAL:G 0 P 0 0 0 0 Past Encounters Encounter ID Performer Location Encounter Start Date Encounter Closed Date Diagnosis/Indication Diagnosis SNOMED-CT Code Diagnosis ICD10 Code Diagnosis IMO Codes Diagnosis Note [id number] SAUNDRA DA SILVA PA-C [facility] [address] [address] 10/09/2024 10:23:48 10/09/2024 11:04:08 Allergic rhinitis 43309149 J30.89 9046633 Olfactory hallucinations 45946808 R44.2 8417532 Sensorineu ral hearing loss of bilateral ears 916985476 H90.3 485939 [id number] LEONEL MEEK [facility] Allergy [address] [place] [address] 12/01/2024 09:05:47 12/01/2024 12:59:20 Allergic rhinitis 75837608 J30.89 9484310 Perennial allergic rhinitis 068377310 J30.89 105613 [id number] Gre[facility] Martinez [facility] [address] [place] [address] 12/25/2024 08:58:32 12/25/2024 09:47:58 Perennial allergic rhinitis 221408982 J30.89 328730 [id number] ZENIA GUO RN Allergy [address] [place] [address] 12/29/2024 11:16:05 12/29/2024 11:53:40 Allergic rhinitis 13934546 J30.89 0791151 [id number] SAUNDRA DA SILVA PA-C [facility] 100 [place] [address] 01/13/2025 09:09:57 01/13/2025 10:45:41 Allergic rhinitis 61445552 J30.89 2613591 Olfactory hallucinations 77251936 R44.2 1990768 Health Concerns Section Related Observation LastModified by Organization Detai ls LastModified Time None Recorded Concern Status LastModified by Organization Details LastModified Time None Recorded Advance Directives Directive None Recorded Payers Insurance Date Sequence Insurance Name Policy Number Policy Kinsey Covered Member ID Kinsey Member ID Guarantor Name 01/13/2025 1 [facility] [id number] Abbie Dakota Velasquez [id number] Abbie Velasquez Notes Date Note Type Note Provider Name and Address Organization Details Recorded Time 10/09/2024 text/html ROS as noted in the HPI 49-year-old female 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 For the [...] Patient also had a hearing test at [facility] back in August. She reports decreased hearing, but denies otalgia, otorrhea, tinnitus, vertigo. SAUNDRA DA SILVA PA-C [address] [place] [address], [address], [facility] - [facility] 10/09/2024 11:17:19 01/13/2025 text/html ROS as noted in the HPI 49-year-old female presents for review of allergy testing and CT sinus. 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 It is intermittent and she smelling cigar smoke and cologne. Also notes nasal congestion, but denies headache, facial pain, PND, and rhinitis. Previously underwent immunotherapy for her allergies with Dr. Jimenez. Denies viral illness at onset of symptoms. Denies head injury. She is also interested in food allergy testing. She reports throat itching with fruits, but denies difficulty breathing. ESTEBAN SANCHEZ MD [address] [place] [address], [place], [address], [place] - [facility] 01/13/2025 11:45:36 OBGyn Episode No OBEpisode recorded.
--- OUTSIDE RECORDS SUMMARY | 2025-03-24 15:46 | XMS_ITS | Continuity of Care Document ---
Author Organization [place] - [facility], [facility] Address [address] [place] [address] Care Team Providers Care Well Service Floorperson Name Role Phone CAYLA CUNNINGHAM Referring Provider [phone] Assessment Encounter Date Assessment Date Assessment LastModified by Organization Details LastModified Time 01/13/2025 01/13/2025 49-year-old female presents for review [...] of phantosmia if symptoms persist or worsen. [email or web address] Not available 01/13/2025 10:04:18 Plan of Treatment Reminders Order Date Submit Date Provider Last Modified By Organization Details Last Modified Time Details Appointments None recorded. Lab None recorded. 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 Surgeries None recorded. Imaging None recorded. Medication Orders epinephrin e 0.3 mg/0.3 mL injection, auto-injec tor 2024 025 [facility], [address] [place] [address], [address], 10:34:33 azelastine 137 mcg (0.1 %) nasal spray 2024 025 [facility], [address] [place], [address], 10:32:18 Patient TargetsNo targets recorded. Patient InstructionsNo instructions recorded. 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 11:08:46 Olfactory hallucinations 90792717 Active 2024 DORYS DA SILVA PA-C 100 [facility], [address], [place], [address], [place] [facility] [place] 11:08:49 Sensorineural hearing loss of bilateral ears 072113576 Active 2024 DORYS DA SILVA PA-C 100 [facility], [address], [place], [address], [place] [facility] [place] 5 11:15:43 Perennial allergic rhinitis 887985883 Active 2024 LEONEL MEEK [facility] 100 [facility], [place], [address], [place] [facility] 09:26:35 Problem Notes None recorded. Procedures Surgical History Date Name Laterality Status Provider Name and Address Organization Details Recorded Time 12/30/19 25 Allergy Testing INTRADREMAL(IDT) Only completed ZENIA GUO RN 100 [facility],[address], [address], [facility] 12/29/2024 11:53:08 12/26/19 25 Allergy Testing Modified- Quantitative Testing (MQT) Only completed Gregg Martinez 100 [facility],[address], [address], [facility] 12/25/2024 09:46:47 10/10/19 25 NasalEndoscopy_D P completed DORYS DA SILVA PA-C 100 [facility],[address], [address], [facility] 10/09/2024 11:08:38 Imaging Results None recorded. Procedure Notes None recorded. Medical Equipment None Reported. Allergies Allergen ID Allergen Name Allergen Category Reaction Reaction Severity Criticality Documentation Date Start Date Code Code System Note Provider Name and Address Organization Details Recorded Time 652349 morphine medicatio n Not available Not available Not available 10/09/2024 7052 [facility] 10:32:46 Medications Name Sig Start Date [...] azelastine 137 mcg (0.1 %) nasal spray [place] 2 sprays twice a day by intranasal route for 30 days. active Not Available Not Available No t Available epinephrine 0.3 mg/0.3 mL injection, auto-injecto r Take 1 auto by injection route for 1 day, for anaphylaxis . active Not Available Not Available No t Available fluticasone propionate 50 mcg/actuatio n nasal spray,suspen sima [place] 2 sprays every day by intranasal route [...] Updated DateTime 01/13/2025 160.66 cm 34.4 kg/m2 89278.1 g Jumana Duncan [facility] 01/13/2025 09:18:25 Social History None recorded. Functional Status None recorded. Mental Status None recorded. Family History Nothing Reported. Medical History No medical history recorded. Gynecological HistoryNo gynecological history recorded. Obstetrics History GPAL:G 0 P 0 0 0 0 Past Encounters Encounter ID Performer Location Encounter Start Date Encounter Closed Date Diagnosis/Indication Diagnosis SNOMED-CT Code Diagnosis ICD10 Code Diagnosis IMO Codes Diagnosis Note [id number] Gregg Martinez [facility] [address] [place] [address] 12/25/2024 08:58:32 12/25/2024 09:47:58 Perennial allergic rhinitis 497031106 J30.89 890053 [id number] ZENIA GUO RN Allergy [address] [place] [address] 12/29/2024 11:16:05 12/29/2024 11:53:40 Allergic rhinitis 17592562 J30.89 5089817 [id number] DORYS DA SILVA PA-C [facility] [address] [address] 01/13/2025 09:09:57 01/13/2025 10:45:41 Allergic rhinitis 77799864 J30.89 5115259 Olfactory hallucinations 23736225 R44.2 4026236 Health Concerns Section Related Observation LastModified by Organization Detai ls LastModified Time None Recorded Concern Status LastModified by Organization Details LastModified Time None Recorded Payers Encounter Date Sequence Insurance Name Policy Number Policy Kinsey Covered Member ID Kinsey Member ID Guarantor Name 01/13/2025 1 [facility] [id number] Abbie Velasquez [id number] Abbie Velasquez Notes Date Note Type Note Provider Name and Address Organization Details Recorded Time 01/13/2025 text/html ROS as noted in the [...] but denies difficulty breathing. ESTEBAN SANCHEZ MD [address] [place] [address], [place], [address], [facility] - [facility] 01/13/2025 11:45:36 OBGyn Episode No OBEpisode recorded.
--- OUTSIDE RECORDS SUMMARY | 2025-03-24 15:46 | XMS_ITS | Continuity of Care Document ---
Author Organization [place] - [facility], Allergy Address [address] [facility] [address] [place] [address] Care Team Providers Care Lime Hide Inspector Name Role Phone ABRAHAN CUNNINGHAMIAN Referring Provider [phone] Assessment No assessment recorded. Plan of Treatment Reminders Order Date Submit Date Provider Last Modified By Organization Details Last Modified Time Details Appointments None record ed. Lab None record ed. Referral None record ed. Procedures None record ed. Surgeries None record ed. Imaging None record ed. Medication Orders None record ed. Patient TargetsNo targets recorded. Patient InstructionsNo instructions recorded. Reason for Referral None Reported. Results Created Date Observation Date Name Description Value Unit Range Abnormal Flag Note LastModifiedBy Organization Detail LastModifiedTime 12/02/19 25 amrik metry testi ng* No observ ation record ed. skorzec Not Available 2024 09:34:11 Result Notes None recorded. Problems Name Problem SNOMED Code Status Onset Date Resolution Date Notes Provider Name and Address Organization Details Recorded Time Allergic rhinitis 51531084 Active 2024 SAUNDRA DA SILVA PA-C [address] [place] [address], [phone], [facility] - [facility] 11:08:46 Olfactory hallucinations 37326588 Active 2024 SAUNDRA DA SILVA PA-C [address] [place] [address], [phone], [facility] 5 11:08:49 Sensorineural hearing loss of bilateral ears 661870233 Active 2024 SAUNDRA DA SILVA PA-C [address] [place] [address] 100, [place], [address], [facility] 11:15:43 Perennial allergic rhinitis 710584430 Active 2024 LEONEL NO, RMA [address] [facility], [address], [place], [address], [facility] 09:26:35 Problem Notes None recorded. Procedures Surgical History Date Name Laterality Status Provider Name and Address Organization Details Recorded Time 12/30/19 Allergy Testing INTRADREMAL(IDT) Only completed ZENIA GUO RN [address] [facility],[place] [address], [place], [address], [facility] 12/29/2024 11:53:08 12/26/19 Allergy Testing Modified- Quantitative Testing (MQT) Only completed Gregg Martinez [address] [facility],[address], [address], [facility] 12/25/2024 09:46:47 10/10/19 NasalEndoscopy_D P completed GIANFRANCO LU [address] [facility],[place] [address], [place], [address], [facility] 10/09/2024 11:08:38 Imaging Results None recorded. Procedure Notes None recorded. Medical Equipment None Reported. Allergies Allergen ID Allergen Name Allergen Category Reaction Reaction Severity Criticality Documentation Date Start Date Code Code System Note Provider Name and Address Organization Details Recorded Time 435406 morphine medicatio n Not available Not available Not available 10/09/2024 7052 RxNorm Jumana miller [facility] 10:32:46 Medications Name Sig Start Date Stop [...] azelastine 137 mcg (0.1 %) nasal spray [place] 2 sprays twice a day by intranasal route for 30 days. active Not Available Not Available No t Available epinephrine 0.3 mg/0.3 mL injection, auto-injecto r Take 1 auto by injection route for 1 day, for anaphylaxis . active Not Available Not Available No t Available fluticasone propionate 50 mcg/actuatio n nasal spray,suspen sima [place] 2 sprays every day by intranasal route [...] Not Available Vitals Date Recorded Body height Oxygen saturation Oxygen saturation in Arterial blood by Pulse oximetry Heart rate Body mass index (BMI) Body weight Systolic And Diastolic Provider Name and Address Organization Details Last Updated DateTime 5 162.56 cm 97 % 97 % 70 /min 33 kg/m2 52793.7 4 g 117/81 mm[Hg] Gregg Juan [address] [place] [address], [address] [place] [address] [facility] 5 09:17:06 Social History None recorded. Functional Status None recorded. Mental Status None recorded. Family History Nothing Reported. Medical History No medical history recorded. Gynecological HistoryNo gynecological history recorded. Obstetrics History GPAL:G 0 P 0 0 0 0 Past Encounters Encounter ID Performer Location Encounter Start Date Encounter Closed Date Diagnosis/Indication Diagnosis SNOMED-CT Code Diagnosis ICD10 Code Diagnosis IMO Codes Diagnosis Note [id number] [facility] AT [facility] Allergy [address] [place] [address] 100 [place] [address] 12/01/2024 09:05:47 12/01/2024 12:59:20 Allergic rhinitis 26538714 J30.89 1541504 Perennial allergic rhinitis 535838408 J30.89 764930 [id number] [facility] [address] [facility] 100 [place] [address] 12/25/2024 08:58:32 12/25/2024 09:47:58 Perennial allergic rhinitis 981813279 J30.89 247690 Health Concerns Section Related Observation LastModified by Organization Detai ls LastModified Time None Recorded Concern Status LastModified by Organization Details LastModified Time None Recorded Payers Encounter Date Sequence Insurance Name Policy Number Policy Kinsey Covered Member ID Kinsey Member ID Guarantor Name 12/25/[address] [place] [address] [id number] Abbie Velasquez [id number] Abbie Velasquez OBGyn Episode No OBEpisode recorded.
--- OUTSIDE RECORDS SUMMARY | 2025-03-24 15:46 | XMS_ITS | Continuity of Care Document ---
Author Organization [place] - [facility], Allergy Address [address] [facility] [address] [place] [address] Care Team Providers Care Dump Truck Operator Name Role Phone ABRAHAN CUNNINGHAMIAN Referring Provider [phone] Assessment No assessment recorded. Plan of Treatment [...] Address Organization Details Recorded Time Allergic rhinitis 26300359 Active 2024 SAUNDRA DA SILVA PA-C [address] [place] [address], [phone], [facility] - [facility] 11:08:46 Olfactory hallucinations 57526793 Active 2024 SAUNDRA DA SILVA PA-C [address] [place] [address], [address], [facility] 5 11:08:49 Sensorineural hearing loss of bilateral ears 128587182 Active 2024 SAUNDRA DA SILVA PA-C [address] [place] [address] 100, [place], [address], [facility] 11:15:43 Perennial allergic rhinitis 291348917 Active 2024 LEONEL NO, RMA [address] [facility], [address], [place], [address], [facility] 09:26:35 Problem Notes None recorded. Procedures Surgical History Date Name Laterality Status Provider Name and Address Organization Details Recorded Time 12/30/19 Allergy Testing INTRADREMAL(IDT) Only completed ZENIA GUO RN [address] [facility],[place] [address], [place], [address], [facility] 12/29/2024 11:53:08 12/26/19 Allergy Testing Modified- Quantitative Testing (MQT) Only completed Gregg Martinez [address] [facility],[address], [address], [facility] 12/25/2024 09:46:47 10/10/19 NasalEndoscopy_D P completed GIANFRANCO LU [address] [facility],[place] [address], [place], [address], [facility] 10/09/2024 11:08:38 Imaging Results None recorded. Procedure Notes None recorded. Medical Equipment None Reported. Allergies Allergen ID Allergen Name Allergen Category Reaction Reaction Severity Criticality Documentation Date Start Date Code Code System Note Provider Name and Address Organization Details Recorded Time 726011 morphine medicatio n Not available Not available Not available 10/09/2024 7052 RxNorm Jumana miller [facility] 10:32:46 Medications Name Sig Start Date Stop [...] azelastine 137 mcg (0.1 %) nasal spray [place] 2 sprays twice a day by intranasal route for 30 days. active Not Available Not Available No t Available epinephrine 0.3 mg/0.3 mL injection, auto-injecto r Take 1 auto by injection route for 1 day, for anaphylaxis . active Not Available Not Available No t Available fluticasone propionate 50 mcg/actuatio n nasal spray,suspen sima [place] 2 sprays every day by intranasal route [...] Not Available Vitals Date Recorded Body height Provider Name an d Address Organization Details Last Updated DateTime 12/29/2024 162.56 cm ZENIA GUO RN [address] [facility],[address], [address], [place] - [facility] 12/29/2024 11:22:59 Social History None recorded. Functional Status None recorded. Mental Status None recorded. Family History Nothing Reported. Medical History No medical history recorded. Gynecological HistoryNo gynecological history recorded. Obstetrics History GPAL:G 0 P 0 0 0 0 Past Encounters Encounter ID Performer Location Encounter Start Date Encounter Closed Date Diagnosis/Indication Diagnosis SNOMED-CT Code Diagnosis ICD10 Code Diagnosis IMO Codes Diagnosis Note [id number] LEONEL FANTASMA[facility] [address] [facility] 100 [place] [address] 12/01/2024 09:05:47 12/01/2024 12:59:20 Allergic rhinitis 78372116 J30.89 2567276 Perennial allergic rhinitis 858046861 J30.89 312003 [id number] Gregg Tyos Allergy [address] [facility], [address] [place] [address] 12/25/2024 08:58:32 12/25/2024 09:47:58 Perennial allergic rhinitis 394469076 J30.89 618072 [id number] ZENIA GUO RN Allergy [address] [place] [address] [place] [address] 12/29/2024 11:16:05 12/29/2024 11:53:40 Allergic rhinitis 54599884 J30.89 [id number] Health Concerns Section Related Observation LastModified by Organization Detai ls LastModified Time None Recorded Concern Status LastModified by Organization Details LastModified Time None Recorded Payers Encounter Date Sequence Insurance Name Policy Number Policy Kinsey Covered Member ID Kinsey Member ID Guarantor Name 12/29/2024 1 [facility] [id number] Abbie Velasquez [id number] Abbie Velasquez OBGyn Episode No OBEpisode recorded.
--- OUTSIDE RECORDS SUMMARY | 2025-03-24 15:46 | XMS_ITS | Clinical Summary ---
Author Organization [address] Address [address] [place], [place] Phone Care Team Providers Care Church Official Name Role Phone Gemini Larson [place] Primary Care Provider [phone] Encounters Date Type Department Care Team Description 02/04/2025 4:30 PM EDT Treatment Outpatient Rehabilitation [address] [phone] Bay Russell, PT Chronic left shoulder pain (Primary Dx) 02/01/2025 4:30 PM EDT Treatment Outpatient Rehabilitation [address] [phone] Bay Russell, PT Chronic left shoulder pain (Primary Dx) 01/28/2025 5:00 PM EDT Treatment Outpatient [address] [phone] Bay Russell, PT Chronic left shoulder pain (Primary Dx) 12/30/2024 5:00 PM EDT Treatment Outpatient [address] [phone] Janey Orozco, RAILROAD ENGINEER Chronic left shoulder pain (Primary Dx) 12/28/2024 3:30 PM EDT Treatment Outpatient [address] [phone] Bay Russell, PT Chronic left shoulder pain (Primary Dx) from Last 3 Months Immunizations Immunization Administration Dates Next Due Moderna SARS-CoV-2 COVID-19, [...] Health Maintenance Due Date Last Done Comments Colorectal Cancer Screening: Colonoscopy 1974 Diabetes: Annual Foot Exam 1984 Diabetes: Annual Retina Eye Exam 1984 Hepatitis B Vaccines (1 of 3 - 19+ 3-dose series) 1993 Cervical Cancer Screening: Pap Smear 1995 Pneumococcal Vaccine: 50+ Years (2 of 2 - PCV) 07/02/2020 07/02/2019 Diabetes: Annual GFR (Glomerular Filtration Rate) 08/18/2021 08/18/2020 Hepatitis C Screening 04/21/2022 Social Influencers of Health Screening 04/21/2022 RSV Immunization Adult Patients (1 - Risk 50-74 years 1-dose series) 2024 Zoster Vaccines (1 of 2) 2024 Depression [...] EDT Narrative 12/13/2023 3:[address] [facility] Diagnostic Imaging Department [address] [place] [address] Patient: ABBIE VELASQUEZ [place] /Age/Sex: 1975 - 48 - F Unit#: [id number] [facility] Mnemonic/Ordering Site: [facility] Ordering Physician: CAYLA CUNNINGHAM [facility] Screening Digital - 12/13/23 - 1403 Report Status:Signed EXAM: [facility] Screening Digital EXAM DATE AND TIME: 12/13/2023 2:03 PM HISTORY: Screening. COMPARISON: 11/02/22, 06/07/21, 07/20/19 TECHNIQUE: Bilateral digital breast tomosynthesis was performed in the CC and MLO projections. Computer aided detection with Imaxio 3D 3.1 was employed. TISSUE DENSITY: b. [...] Note Brennen Doyle MD - 02/26/2024 [facility] Diagnostic Imaging Department [address] [place] [address] Patient: ABBIE VELASQUEZO.B./Age/Sex: 1975 - 48 - F Unit#: [id number] [facility] CLI Mnemonic/Ordering Site: [facility] Ordering Physician: CAYLA CUNNINGHAM [facility] Screening Digital - 12/13/23 - 1403 Report Status:Signed EXAM: [facility] Screening Digital EXAM DATE AND TIME: 12/13/2023 2:03 PM HISTORY: Screening. COMPARISON: 11/02/22, 06/07/21, 07/20/19 TECHNIQUE: Bilateral digital breast tomosynthesis was performed in the CCand MLO projections. Computer aided detection with Imaxio 3D 3.1was employed. TISSUE DENSITY: b. There [...] Most Recently Relevant to Health Maintenance Insurance [employer] [place] [employer] Care Teams Church Official Relationship Specialty Start Date End Date Gemini Larson NP [facility] [place] [address] PCP - General 06/06/21
--- OUTSIDE RECORDS SUMMARY | 2025-03-24 15:46 | XMS_ITS | Patient Health Record ---
Author Organization [facility] Address [address] [place] [address] Care Team Providers Care Identity Management Consultant Name Role Phone SHANICE LINCOLN Unavailable [phone] Allergies Allergen (clinical drug ingredient) Drug/Non Drug Allergy documented on EMR Reaction Allergy Type Onset Date Status Mold Unknown Allergy Active Rodents Unknown Allergy Active Horses Unknown Allergy Active Results Component Value Reference Range Flag Notes HPV HIGH RISK, Cervix Reviewed date:05/19/2024 10:12:36 AM Interpretation:Negative Performing Lab:[facility], [place], [address] Varinder Paniagua DO Notes/Report: HPV HIGH RISK NEGATIVE NEGATIVE N HPV High Risk DNA Probe Assay SEX: F : 1975 AGE: 49 [id number] CLINIC ID: [id number] SS: PHYSICIAN: SHANICE LINCOLN ASSOCIATE PROFESSOR PLANT PATHOLOGY COLLECTED BY: Specimen Source: Cervix Specimen Type: ThinPrep Pap Correlating Pap: [id number] Additional High Risk Subtypes* NEGATIVE * Includes 31,33,35,39,45,51,52,56,58,59, 66,68 Subtype 16 NEGATIVE Subtype 18 NEGAT[address] COMBO 2 CT/NG, Cervix Reviewed date:05/18/2024 03:51:57 PM Interpretation:Negative Performing Lab:[facility], [place], [place], [address] Varinder Paniagua DO Notes/Report: GONORRHEA, AMPLIFIED NEGATIVE NEGATIVE N CHLAMYDIA, AMPLIFIED NEGATIVE NEGATIVE N DNA Test Results SEX: F : 1975 AGE: 49 [id number] CLINIC ID: [id number] SS: PHYSICIAN: SHANICE LINCOLN ASSOCIATE PROFESSOR PLANT PATHOLOGY COLLECTED BY: [id number] Specimen Source: Cervix Specimen Type: ThinPrep PAP Correlating Pap: [id number] Neisseria gonorrhoeae: NEGATIVE Normal Value: Negative Chlamydia trachomatis: NEGATIVE Normal Value: Negative THINPREP PAP TEST, Cervix Reviewed date:05/19/2024 05:00:58 PM Interpretation:NIL Performing Lab:[facility], [address], [place], [address] Varinder Paniagua DO Notes/Report: THINPREP PAP TEST NEGATIVE NEGATIVE N -- THIN PREP PAP TEST -- SEX: F : 1975 AGE: 49 [id number] CLINIC ID: [id number] SS: PHYSICIAN: SHANICE LINCOLN ASSOCIATE PROFESSOR PLANT PATHOLOGY COLLECTED BY: Negative for Intraepithelial Lesion or Malignancy Additional Findings: Endocervical Material Present Specimen Adequacy: Satisfactory for Evaluation Previous History: September 2015 Negative HPV(Neg) Clinical Note: HPV MdygofgE35.419 Encounter for gynecological examination (general) (routine) without abnormal azbeslohO52.51 Encounter for screening for human papillomavirus (HPV)Z11.3 [...] tablet as needed Orally every 6 hrs Not-Taking/KS N Baclofen Active Social History Sex Assigned [...] 05/12/2024 Encounters Encounter Location Date Provider Diagnosis [facility] [address] [place] [address] [address] [place], [place] [id number] 05/12/2024 SHANICE LINCOLN Encounter for gynecological examination [...] to date with mammo, had done at [facility], normal as per clt. Discussed perimenopause, [...] transmission (ICD-10 - Z11.3) Plan Of Treatment Next Appt Details Provider Name:SHANICE LINCOLN , 05/18/2025 12:00:00 PM, [address] [place] [address], [facility], [place], [place], [id number], Insurance Providers Payer Name Payer Address Payer Phone Subscriber Number Group Number Insured Name Patient Relationship to Insured Coverage Start Date Coverage End Date [place] [address] [place] [address] [phone] [id number] Abbie Velasquez Self - patient is the [...]
--- OUTSIDE RECORDS SUMMARY | 2025-03-24 15:46 | XMS_ITS | Clinical Summary ---
Author Organization [facility] Address [address] [place] [address] Care Team Providers Care Refrigerator Crater Name Role Phone Unavailable Primary Care Provider [...] :Uncontrolled type 2 diabetes mellitus with hyperglycemia 9 Active topiramate (TOPAMAX) 50 mg tabletIndications :Chronic tension-type headache, not intractable topiramate 50 mg tablet Active lancets (FREESTYLE LANCETS) 28 gaugeIndications: Uncontrolled type 2 diabetes mellitus with hyperglycemia Order Freestyle lancets, check sugar daily. Dx: E11.65. 100 Each 2 9 Active blood-glucose meter monitoring kitIndications:Ty pe 2 diabetes mellitus without complication, without long-term current use of insulin as needed for blood glucose monitoring Order Free style lite. Check sugar daily. Dx; E11.65 1 Each 9 Active traMADoL (ULTRAM) 50 mg tabletIndications :Chronic bilateral low back pain without sciatica Take 1 Tab by mouth once daily as needed for pain 30 Tab 0 Active naloxone (NARCAN) 4 mg/actuation nasal sprayIndications: Chronic bilateral low back pain without sciatica Place 1 [place] into the nostril(s) as needed for opioid [...] Overview (04/08/2019): 02/19/2019: Echo: 45-50%. Done by [facility]. Influenza vaccine refused 04/08/2019 Vitamin D deficiency 04/08/2019 Chronic bilateral low back p ain without sciatica: Sees Pain at [facility] 04/08/2019 Overview (07/11/2019): Saw Pain at [facility]: 07/01/2019: offered injections and PT. Menorrhagia 03/06/2019 Dysmenorrhea 03/06/2019 Fibromyalgia Diabetes mellitus type 2, uncomplicated Chronic headache Overview (04/14/2020): 03/27/2020: Roro: CT [...] Screening 1975 Dental Examination 1975 HPV Screening (self-collect) 1975 HPV Screening 1975 Hepatitis C Screening [...] 08/18/2020, 0 08/18/2020, 03/06/2019, Additional history exists Imm-Pneumococcal 50+ (2 of 2 - PCV) 2024 07/02/2019 Imm-Zoster, Recombinant (1 of 2) 2024 Alcohol and Drug Screen 05/13/2024 08/31/19 21, 07/02/2019, 03/06/2019 Depression Annual Screen 05/13/2024 [id number] ( season) 2025 05/24/2021, 08/20/2020, 07/22/2020 Imm-Influenza (#1) 2025 12/24/2016 Lipid Screening 08/18/2025 08/18/2020, 03/06/2019 Imm-DTaP/Tdap/Td (2 - Td or Tdap) 04/08/2028 018 HIV Screening Completed 03/06/2019 Cervical Ablation/Cold-Knife Conization Discontinued Cervical Cryotherapy Discontinued Colposcopy Discontinued Excision/Leep Discontinued HPV Genotyping Discontinued Vaginal Pap Discontinued Vulvoscopy Discontinued Procedures Procedure Name Priority Date/Time Associated Diagnosis Comments HISTORIC MAMMOGRAM 06/07/2021 3: 00 AM EST COMPREHENSIVE METABOLIC PANEL Routine 08/18/2020 10:10 AM EDT Type 2 diabetes mellitus without complication, without long-term current use of insulin ([facility]) LIPID PANEL Routine 08/18/2020 10:10 AM EDT Type 2 diabetes mellitus without complication, without long-term current use of insulin ([facility]) Hyperlipidemia LDL goal <70 ANTIBODY HIV-1&HIV-2 SINGLE RESULT Routine 03/06/2019 11:32 AM EDT Uncontrolled type 2 diabetes mellitus with hyperglycemia ([facility]) from Last 3 Months or Most Recently Relevant to Health Maintenance Results * HISTORIC MAMMOGRAM (06/07/2021 3:00 AM EST) 06/07/2021 3:00 AM EST Gemini Larson [facility] IM MAMMO Edited Result - Final * COMPRE METAB PANEL (08/18/2020 10:10 AM EDT) GLUCOSE 88 65 - 99 mg/dL [place] Comment: Fasting reference interval UREA NITROGEN (BUN) 15 7 - 25 mg/dL [place] CREATININE (blood) 0.65 0.50 - 1.10 mg/dL [place] GFR ESTIMATED 106 > OR = 60 mL/min/1 .73m2 [place] EGFR 123 > OR = 60 mL/min/1 .73m2 [place] BUN/CREATININE RATIO NOT APPLICABLE 6 - 22 [place] [facility] SODIUM 137 135 - 146 mmol/L [place] [facility] POTASSIUM 4.3 3.5 - 5.3 mmol/L [place] CHLORIDE 103 98 - 110 mmol/L [place] [facility] CARBON DIOXIDE 29 20 - 32 mmol/L [place] [facility] CALCIUM 9.2 8.6 - 10.2 mg/dL [place] PROTEIN, TOTAL 6.7 6.1 - 8.1 g/dL [place] ALBUMIN 4.2 3.6 - 5.1 g/dL [place] [facility] GLOBULIN 2.5 1.9 - 3.7 g/dL (calc) [place] ALBUMIN/GLOBUL IN RATIO 1.7 1.0 - 2.5 (calc) [place] BILIRUBIN, TOTAL 0.4 0.2 - 1.2 mg/dL [place] [facility] ALKALINE PHOSPHATASE 63 31 - 125 U/L [place] [facility] AST 16 10 - 35 U/L [place] [facility] ALT 10 6 - 29 U/L [place] [facility] Blood Blood / Unknown 08/18/2020 1 0:10 AM EDT 08/18/2020 10:10 AM EDT Narrative [facility] [employer] [facility] - 08/18/2020 8:09 PM EDT FASTING:YES Gemini Larson [facility] LAB - BLOOD DRAW Final Result [facility] [address] [address], [place] [facility] [address] [address] * HIV-1 & HIV-2 ANTIBODIES (03/06/2019 11:32 AM EDT) [facility] HIV 1 AND 2 ANTIBODY SCREEN NEGATIVE NEGATIVE [employer] [facility] Comment: This assay is a [...] AM EDT 03/06/2019 11:47 AM EDT Narrative [facility] - 03/06/2019 4:45 PM EDT [employer], [place] [address] Crystal Mounter - Rayna Masters MD PT ID [id number] ORD# [id number] Gemini Larson [facility] - BLOOD DRAW Final Result [facility] [employer] [address], from Last 3 Months or Most Recently Relevant to Health Maintenance Insurance [employer]
== END 2025-03-24 13:24 | disposition home or self-care (01) ==
LOC: HO.HNS 13:03
PROVIDERS: PCP Physician Assistant Medical; Visit Provider Physician Assistant
DX: M51.16 Intervertebral disc disorders with radiculopathy, lumbar region (principal)
CPT/HCPCS: 99024

== ENCOUNTER → 2025-03-24 13:02 | Outpatient (BNVA) | payer OTHER, SELFPAY | PROVIDERS: PCP Physician Assistant Medical; Visit Provider Physician Assistant | DX: M51.16 Intervertebral disc disorders with radiculopathy, lumbar region (principal) | CPT/HCPCS: 99212 ==

== ENCOUNTER 2025-05-10 11:49 | Outpatient (AMB) | payer OTHER, SELFPAY ==
--- OUTSIDE RECORDS SUMMARY | 2025-05-05 23:59 | XMS_ITS | Continuity of Care Document ---
Author Organization [facility] Address [address] [place] [address]- Care Team Providers Care Operations And Maintenance Specialist Name Role Phone Horacio Mchugh MD Primary Care Physician [phone] [place] [facility] [place]/25 [facility] [address] [place], [place] [phone] Encounter Type: Triage Allergies, Adverse Reactions, Alerts Substance Criticality Severity Reaction Reaction Severity Status morphine Active Immunizations Given and Recorded Vaccine Date Status Refusal Reason tetanus-diphtheria toxoids (Td) 01/30/23 Given SARS-CoV-2 (COVID-19) mRNA BNT-162b2 vac 05/24/21 Recorded SARS-CoV-2 (COVID-19) mRNA-1273 vaccine 08/20/20 R ecorded SARS-CoV-2 (COVID-19) mRNA-1273 vaccine 07/22/20 R ecorded pneumococcal 23-valent vaccine 07/02/19 Recorded influenza virus vaccine, inactivated 12/24/16 Balaji rded Tet/Diphth/Acel, Pertussis (oldterm) 1 03/21/12 Gi delia 1Admin Note: VIS 06/05/2011 Medications acetaminophen 650 mg oral tablet, extended release 2 tablet = 1,300 mg, By Mouth, Every 8 hours, for pain., # 200 tablet, 4 Refills, Maintenance, 04/06/25 9:33:00 AM EST, [facility] Partial fill upon patient request if the prescription is for a schedule II opioid drug., 162.56, cm, 04/02/25 13:51:00 EST, Height, 77.8, kg, 12/17/23 9 :40:00 EDT, Dry Weight Start Date: 04/06/25 Status: Ordered Medication Dispense Status: Completed Quantity: 200.0 Unit: tablet Total Allowed Fills: 5 Fills Dispensed: 0 albuterol CFC free 90 mcg/inh inhalation aerosol 2, puffs, Inhalation, Every 6 hours, PRN, only in case of emergency for wheezing, shortness of breath., # 1 each, Refills 1, Tot. Refills 1, Maintenance, 04/10/24 2:16:00 PM EST, Route to Pharmacy Electronically, [id number], [facility], 162.56, cm, 249:25:00 EST, Height Start Date: 04/10/24 Status: Ordered Medication Dispense Status: Completed Quantity: 1.0 Unit: each Total Allowed Fills: 2 Fills Dispensed: 0 baclofen 10 mg oral tablet 10 mg, 1, tablet, By Mouth, 3 times a day, for pain/muscle spasm, # 30 each, Refills 0, Tot. Refills 0, Maintenance, 09/09/24 3:21:00 PM EDT, Route to Pharmacy Electronically, [facility], Partial fill upon patient request if the prescription is for a schedule II opioid drug., 162.56,cm, 07/21/24 10:11:00 EDT, Height, 77.8, kg, 12/17/23 9:40:00 EDT, Dry Weight Start Date: 09/09/24 Status: Ordered Medication Dispense Status: Completed Quantity: 30.0 Unit: each Total Allowed Fills: 1 Fills Dispensed: 0 Blood Pressure Monitor See Instructions, # 1 each, Maintenance, Please measure blood pressure once/day at home for diagnosis of hypertension I10, 11/29/21 3:37:00 PM EDT, Supply Start Date: 11/29/21 Status: Ordered Medication Dispense Status: Completed Quantity: 1.0 Unit: each Total Allowed Fills: 1 Fills Dispensed: 0 Indications: Essential (primary) hypertension; Blood Pressure Monitor See Instructions, # 1 each, Maintenance, Please measure blood pressure once daily for diagnosis of hypertension I10, 11/29/21 4:15:00 PM EDT, Supply Start Date: 11/29/21 Status: Ordered Medication Dispense Status: Completed Quantity: 1.0 Unit: each Total Allowed Fills: 1 Fills Dispensed: 0 Crutches See Instructions, # 1 pair, Maintenance, As shown, 07/09/14 9:05:23 PM EST, Compound Start Date: 07/09/14 Status: Ordered Medication Dispense Status: Completed Quantity: 1.0 Unit: pair Total Allowed Fills: 1 Fills Dispensed: 0 Freestyle Lite Lancets See Instructions, # 50 each, Refills 11, Tot. Refills 11, Maintenance, check daily fasting glucose for type 2 diabetes. E11.9, 11/17/24 12:06:00 PM EDT, Supply, 162.56, cm, 11/17/24 11:24:00 EDT, Height, 77.8, kg, 12/17/23 9:40:00 EDT, Dry Weight Start Date: 11/17/24 Status: Ordered Medication Dispense Status: Completed Quantity: 50.0 Unit: each Total Allowed Fills: 12 Fills Dispensed: 0 Lidoderm 5% film See Instructions, Topically Daily for pain remove patches after 12 hours, # 30 each, 2 Refills, Maintenance, 04/09/25 11:21:00 AM EST, [facility], Partial fill upon patient request ifthe prescription is for a schedule II opioid drug., Topically Daily for pain; remove patches after 12 hours, 162.56, cm, 04/02/25 13:51:00 EST, Height, 77.8, kg, 12/17/23 9:40:00 EDT, Dry Weight Start Date: 04/09/25 Status: Ordered Medication Dispense Status: Completed Quantity: 30.0 Unit: each Total Allowed Fills: 3 Fills Dispensed: 0 lisinopril 5 mg oral tablet 5 mg, 1, tablet, By Mouth, Daily, # 90 tablet, Refills 1, Tot. Refills 1, Maintenance, 04/06/25 9:32:00 AM EST, Route to Pharmacy Electronically, [facility], Partial fill upon patientrequest if the prescription is for a schedule II opioid drug., 162.56, cm, 04/02/25 13:51:00 EST, Height, 77.8, kg, 12/17/23 9:40:00 EDT, Dry Weight Start Date: 04/06/25 Status: Ordered Medication Dispense Status: Completed Quantity: 90.0 Unit: tablet Total Allowed Fills: 2 Fills Dispensed: 0 loratadine 10 mg oral capsule 1 capsule = 10 mg, By Mouth, Daily, PRN Other, for allergies, # 40 capsule, 0 Refills, Maintenance,11/29/21 3:35:00 PM EDT, Capsule, [facility]., Partial fill upon patient request if the prescription is for a schedule II opioid drug., 163, cm, 11/29/21 14:40:00 EDT, Height Start Date: 11/29/21 Stop Date: 12/29/21 Status: Ordered Medication Dispense Status: Completed Quantity: 40.0 Unit: capsule Total Allowed Fills: 1 Fills Dispensed: 0 melatonin 3 mg oral tablet 1 tablet = 3 mg, By Mouth, Daily at bedtime, for sleep., # 90 tablet, 1 Refills, Maintenance, 06/10/24 11:26:00 AM EST, [facility]., Partial fill upon patient request if the prescription is for a schedule II opioid drug., 162.56, cm, 06/10/24 10:48:00 EST, Height, 77.8, kg, 12/17/23 9:40:00 EDT, Dry Weight Start Date: 06/10/24 Status: Ordered Medication Dispense Status: Completed Quantity: 90.0 Unit: tablet Total Allowed Fills: 2 Fills Dispensed: 0 meloxicam 15 mg oral tablet 1 tablet = 15 mg, By Mouth, Daily, as needed for pain take with food please, # 30 tablet, 0 Refills, Maintenance, 01/14/24 9:58:00 AM EDT, [facility]., Partial fill upon patient request if the prescription is for a schedule II opioid drug., 162.56, cm, 01/14/24 9:58:00 EDT, Height, 77.8, kg, 12/17/23 9:40:00 EDT, Dry Weight Start Date: 01/14/24 Stop Date: 02/13/24 Status: Ordered Medication Dispense Status: Completed Quantity: 30.0 Unit: tablet Total Allowed Fills: 1 Fills Dispensed: 0 Metamucil 3.4 gm/5.2 gm oral powder for reconstitution = 1.7 Gm, By Mouth, Daily, PRN as needed for constipation, # 570 Gm, 3 Refills, Maintenance, 06/10/24 11:23:00 AM EST, REC Powder, [facility]., Partial fill upon patient request if the prescription is for a schedule II opioid drug., 162.56, cm, 06/10/24 10:48:00 EST, Height, 77.8, kg,12/17/23 9:40:00 EDT, Dry Weight Start Date: 06/10/24 Status: Ordered Medication Dispense Status: Completed Quantity: 570.0 Unit: g Total Allowed Fills: 4 Fills Dispensed: 0 omeprazole 20 mg oral enteric coated capsule 1 capsule = 20 mg, By Mouth, Daily, take on empty stomach, # 30 capsule, 0 Refills, Maintenance, 04/07/24 10:01:00 AM EST, [facility], Partial fill upon patient request if the prescription is for a schedule II opioid drug., 162.56, cm, 04/07/24 9:25:00 EST, Height, 77.8, kg, 12/17/23 9:40:00 EDT, Dry Weight Start Date: 04/07/24 Status: Ordered Medication Dispense Status: Completed Quantity: 30.0 Unit: capsule Total Allowed Fills: 1 Fills Dispensed: 0 Splint See Instructions, # 1 application, Maintenance, use for ankle instability, 03/13/15 11:48:10 PM EST,Compound Start Date: 03/13/15 Status: Ordered Medication Dispense Status: Completed Quantity: 1.0 Unit: application Total Allowed Fills: 1 Fills Dispensed: 0 topiramate 50 mg oral capsule, extended release 1 capsule = 50 mg, By Mouth, Daily, # 30 capsule, 5 Refills, Maintenance, 01/14/24 9:58:00 AM EDT, ERCapsule, [facility]., Partial fill upon patient request if the prescription is for aschedule II opioid drug., 162.56, cm, 01/14/24 9:58:00 EDT, Height, 77.8, kg, 12/17/23 9:40:00 EDT,Dry Weight Start Date: 01/14/24 Status: Ordered Medication Dispense Status: Completed Quantity: 30.0 Unit: capsule Total Allowed Fills: 6 Fills Dispensed: 0 Indications: Migraine, unspecified, not intractable, without status migrainosus; Vitamin D3 1000 intl units oral capsule 1 capsule = 25 mcg, By Mouth, Daily, with food, # 90 capsule, 3 Refills, Maintenance, 01/14/24 10:00:00 AM EDT, [facility], Partial fill upon patient request if the prescription is for a schedule II opioid drug., 162.56, cm, 01/14/24 9:58:00 EDT, Height, 77.8, kg, 12/17/23 9:40:00 EDT, Dry Weight Start Date: 01/14/24 Stop Date: 01/08/25 Status: Ordered Medication Dispense Status: Completed Quantity: 90.0 Unit: capsule Total Allowed Fills: 4 Fills Dispensed: 0 Voltaren Arthritis Pain 1% topical gel = 2 Gm, Topically, 2 times a day, for pain, # 120 Gm, 0 Refills, Maintenance, 04/09/25 10:54:00 AM EST, [facility], Partial fill upon patient request if the prescription is for a schedule II opioid drug., 2 Gm Topically 2 times a day,Instr:for pain, 162.56, cm, 04/02/25 13:51:00 EST, Height, 77.8, kg, 12/17/23 9:40:00 EDT, Dry Weight Start Date: 04/09/25 Status: Ordered Medication Dispense Status: Completed Quantity: 120.0 Unit: g Total Allowed Fills: 1 Fills Dispensed: 0 Problem List Condition Confirmation Course Effective Dates Status H ealth Status Informant Allergy to trees (per allergy testing) Confirmed Active Allergic rhinitis Confirmed Active Allergy to cats (per allergy testing) Confirmed Active Allergy to dogs (per allergy testing) Confirmed Active House dust mite allergy (per allergy testing) Confirmed Active Allergy to grass pollen (per allergy testing) Confirmed Active Allergy to cockroaches (per allergy testing) Confirmed Active Allergy to mold (per allergy testing) Confirmed Active Allergy to weed pollen (per allergy testing) Confirmed Active Glucose intolerance (pre-diabetes) Confirmed 04/21/12 Active H/O: depression Confirmed Active H/O cardiac arrest Confirmed Active History of sleeve gastrectomy Confirmed Active Hypertension Confirmed Active Obese class I Confirmed Active Phantosmia Confirmed Active Bilateral sensorineural hearing loss Confirmed Active Social History Social History Type Response Sexual Sexually involved in last 6 months: No. Smoking Status Never (less than 100 in lifetime) entered on: 01/30/23 Sex Sex Representation Female (finding) Patient Care team information Care Team Personnel Name: Horacio Mchugh MD Position: S Resident Member Role: PCP Address: [address] [place] [address] Telecom: Care Team Related Persons Name: LIZANDRO BARNES Name: SCAR SOOD Name: EDDIE SOOD Insurance Providers Guarantor name: SARAH Health Plan Information #: 1 Payer: [employer] Payer Identifier: SARAH Member Number: [id number] Group Number: [id number] Subscriber Identifier: SARAH Relationship to Subscriber: self Coverage Type: Medicaid (Managed Care) Coverage Verification Date: SARAH Telecom: SARAH Address:
--- OUTSIDE RECORDS SUMMARY | 2025-05-06 23:59 | XMS_ITS | Continuity of Care Document ---
Author Organization [facility] Address [address] [place] [address]- Care Team Providers Care Turkey Boner Name Role Phone Horacio Mchugh MD Primary Care Physician [place] [facility] [place] 04/06/25 - 05/06/25 [facility] [address] [place], [place] [phone] Encounter Type: Triage Allergies, Adverse Reactions, Alerts [...] 4 Refills, Maintenance, 04/06/25 9:33:00 AM EST, [facility] Partial fill upon patient request if [...] 2:16:00 PM EST, Route to Pharmacy Electronically, [id number], [facility], 162.56, cm, 249:25:00 EST, Height Start Date: 04/10/24 Status: Ordered Medication Dispense Status: Completed Quantity: 1.0 Unit: each Total Allowed Fills: 2 Fills Dispensed: 0 baclofen 10 mg oral tablet 10 mg, 1, tablet, By Mouth, 3 times a day, for pain/muscle spasm, # 30 each, Refills 0, Tot. Refills 0, Maintenance, 09/09/24 3:21:00 PM EDT, Route to Pharmacy Electronically, [facility], Partial fill upon patient request if the [...] 2 Refills, Maintenance, 04/09/25 11:21:00 AM EST, [facility], Partial fill upon patient request ifthe prescription [...] 9:32:00 AM EST, Route to Pharmacy Electronically, [facility], Partial fill upon patientrequest if the prescription [...] 0 Refills, Maintenance,11/29/21 3:35:00 PM EDT, Capsule, [facility]., Partial fill upon patient request if the [...] 1 Refills, Maintenance, 06/10/24 11:26:00 AM EST, [facility]., Partial fill upon patient request if the [...] 0 Refills, Maintenance, 01/14/24 9:58:00 AM EDT, [facility]., Partial fill upon patient request if the [...] Maintenance, 06/10/24 11:23:00 AM EST, REC Powder, [facility]., Partial fill upon patient request if the [...] 0 Refills, Maintenance, 04/07/24 10:01:00 AM EST, [facility], Partial fill upon patient request if the [...] Refills, Maintenance, 01/14/24 9:58:00 AM EDT, ERCapsule, [facility]., Partial fill upon patient request if the [...] 3 Refills, Maintenance, 01/14/24 10:00:00 AM EDT, [facility], Partial fill upon patient request if the [...] 0 Refills, Maintenance, 04/09/25 10:54:00 AM EST, [facility], Partial fill upon patient request if the [...] Position: S Resident Member Role: PCP Address: [address] [place] [address] Adult [address] Telecom: Care Team Related Persons Name: LIZANDRO BARNES Name: SCAR SOOD Name: EDDIE SOOD Insurance Providers Guarantor name: SARAH Health Plan Information #: 1 Payer: [employer] Payer Identifier: SARAH Member Number: [id number] Group Number: [id number] Subscriber Identifier: SARAH Relationship to Subscriber: self Coverage Type: Medicaid (Managed Care) Coverage Verification Date: SARAH Telecom: SARAH Address:
--- OUTSIDE RECORDS SUMMARY | 2025-05-06 23:59 | XMS_ITS | Continuity of Care Document ---
Author Organization [facility] Address [address] [place] [address]- Care Team Providers Care Trucksmith Name Role Phone Horacio Mchugh MD Primary Care Physician [phone] Encounter [facility] [place] Date(s): 04/06/25 - 05/06/25 [facility] [address] [place], [place] [phone] Encounter Type: Triage Allergies, Adverse Reactions, Alerts [...] 4 Refills, Maintenance, 04/06/25 9:33:00 AM EST, [facility] Partial fill upon patient request if the [...] 2:16:00 PM EST, Route to Pharmacy Electronically, [id number], [facility], 162.56, cm, 249:25:00 EST, Height Start Date: 04/10/24 Status: Ordered Medication Dispense Status: Completed Quantity: 1.0 Unit: each Total Allowed Fills: 2 Fills Dispensed: 0 baclofen 10 mg oral tablet 10 mg, 1, tablet, By Mouth, 3 times a day, for pain/muscle spasm, # 30 each, Refills 0, Tot. Refills 0, Maintenance, 09/09/24 3:21:00 PM EDT, Route to Pharmacy Electronically, [facility], Partial fill upon patient request if [...] 2 Refills, Maintenance, 04/09/25 11:21:00 AM EST, [facility], Partial fill upon patient request ifthe [...] 9:32:00 AM EST, Route to Pharmacy Electronically, [facility], Partial fill upon patientrequest if the [...] 0 Refills, Maintenance,11/29/21 3:35:00 PM EDT, Capsule, [facility]., Partial fill upon patient request if [...] 1 Refills, Maintenance, 06/10/24 11:26:00 AM EST, [facility]., Partial fill upon patient request if [...] 0 Refills, Maintenance, 01/14/24 9:58:00 AM EDT, [facility]., Partial fill upon patient request if [...] Maintenance, 06/10/24 11:23:00 AM EST, REC Powder, [facility]., Partial fill upon patient request if [...] 0 Refills, Maintenance, 04/07/24 10:01:00 AM EST, [facility], Partial fill upon patient request if [...] Refills, Maintenance, 01/14/24 9:58:00 AM EDT, ERCapsule, [facility]., Partial fill upon patient request if [...] 3 Refills, Maintenance, 01/14/24 10:00:00 AM EDT, [facility], Partial fill upon patient request if [...] 0 Refills, Maintenance, 04/09/25 10:54:00 AM EST, [facility], Partial fill upon patient request if [...] Position: S Resident Member Role: PCP Address: [address] [place] [address] Telecom: Care Team Related Persons Name: LIZANDRO BARNES Name: SCAR SOOD Name: EDDIE SOOD Insurance Providers Guarantor name: SARAH Health Plan Information #: 1 Payer: [employer] Payer Identifier: SARAH Member Number: [id number] Group Number: [id number] Subscriber Identifier: SARAH Relationship to Subscriber: self Coverage Type: Medicaid (Managed Care) Coverage Verification Date: SARAH Telecom: SARAH Address:
--- OUTSIDE RECORDS SUMMARY | 2025-05-06 23:59 | XMS_ITS | Continuity of Care Document ---
Author Organization [facility] Address [address] [place] [address]- Care Team Providers Care Cyber Systems Engineer Name Role Phone Horacio Mchugh MD Primary Care Physician [phone] [place] [facility] [place]25 [facility] [address] [place], [place] [phone] Encounter Type: Triage Allergies, Adverse Reactions, Alerts [...] 4 Refills, Maintenance, 04/06/25 9:33:00 AM EST, [facility] Partial fill upon patient request if [...] 2:16:00 PM EST, Route to Pharmacy Electronically, [id number], [facility], 162.56, cm, 249:25:00 EST, Height Start Date: 04/10/24 Status: Ordered Medication Dispense Status: Completed Quantity: 1.0 Unit: each Total Allowed Fills: 2 Fills Dispensed: 0 baclofen 10 mg oral tablet 10 mg, 1, tablet, By Mouth, 3 times a day, for pain/muscle spasm, # 30 each, Refills 0, Tot. Refills 0, Maintenance, 09/09/24 3:21:00 PM EDT, Route to Pharmacy Electronically, [facility], Partial fill upon patient request if [...] 2 Refills, Maintenance, 04/09/25 11:21:00 AM EST, [facility], Partial fill upon patient request ifthe [...] 9:32:00 AM EST, Route to Pharmacy Electronically, [facility], Partial fill upon patientrequest if the [...] 0 Refills, Maintenance,11/29/21 3:35:00 PM EDT, Capsule, [facility]., Partial fill upon patient request if [...] 1 Refills, Maintenance, 06/10/24 11:26:00 AM EST, [facility]., Partial fill upon patient request if [...] 0 Refills, Maintenance, 01/14/24 9:58:00 AM EDT, [facility]., Partial fill upon patient request if [...] Maintenance, 06/10/24 11:23:00 AM EST, REC Powder, [facility]., Partial fill upon patient request if [...] 0 Refills, Maintenance, 04/07/24 10:01:00 AM EST, [facility], Partial fill upon patient request if [...] Refills, Maintenance, 01/14/24 9:58:00 AM EDT, ERCapsule, [facility]., Partial fill upon patient request if [...] 3 Refills, Maintenance, 01/14/24 10:00:00 AM EDT, [facility], Partial fill upon patient request if [...] 0 Refills, Maintenance, 04/09/25 10:54:00 AM EST, [facility], Partial fill upon patient request if [...] Position: S Resident Member Role: PCP Address: [address] [place] [address] Adult [address] Telecom: Care Team Related Persons Name: LIZANDRO BRANES Name: SCAR SOOD Name: EDDIE SOOD Insurance Providers Guarantor name: SARAH Health Plan Information #: 1 Payer: [employer] Payer Identifier: SARAH Member Number: [id number] Group Number: [id number] Subscriber Identifier: SARAH Relationship to Subscriber: self Coverage Type: Medicaid (Managed Care) Coverage Verification Date: SARAH Telecom: SARAH Address:
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
--- OUTSIDE RECORDS SUMMARY | 2025-05-10 13:55 | XMS_ITS | Patient Health Record ---
Author Organization [facility] Address [address] [place] [address] Care Team Providers Care Citrus Picker Name Role Phone SHANICE LINCOLN Unavailable [phone] Allergies Allergen (clinical drug ingredient) Drug/Non Drug Allergy documented on EMR Reaction Allergy Type Onset Date Status Mold Unknown Allergy Active Rodents Unknown Allergy Active Horses Unknown Allergy Active Results Component Value Reference Range Flag Notes HPV HIGH RISK, Cervix Reviewed date:05/19/2024 10:12:36 AM Interpretation:Negative Performing Lab:[facility] [place], [address] Varinder Paniagua DO Notes/Report: HPV HIGH RISK NEGATIVE NEGATIVE N HPV High Risk DNA Probe Assay SEX: F : 1975 AGE: 49 [id number] CLINIC ID: [id number] SS: PHYSICIAN: SHANICE LINCOLN NUCLEAR PLANT INSTRUMENT TECHNICIAN COLLECTED BY: Specimen Source: Cervix Specimen Type: ThinPrep Pap Correlating Pap: [id number] Additional High Risk Subtypes* NEGATIVE * Includes 31,33,35,39,45,51,52,56,58,59, 66,68 Subtype 16 NEGATIVE Subtype 18 NEGAT[address]BO 2 CT/NG, Cervix Reviewed date:05/18/2024 03:51:57 PM Interpretation:Negative Performing Lab:[facility], [facility], [place], [address] Varinder Paniagua DO Notes/Report: GONORRHEA, AMPLIFIED NEGATIVE NEGATIVE N CHLAMYDIA, AMPLIFIED NEGATIVE NEGATIVE N DNA Test Results SEX: F : 1975 AGE: 49 [id number] CLINIC ID: [id number] SS: PHYSICIAN: SHANICE LINCOLN NUCLEAR PLANT INSTRUMENT TECHNICIAN COLLECTED BY: [id number] Specimen Source: Cervix Specimen Type: ThinPrep PAP Correlating Pap: [id number] Neisseria gonorrhoeae: NEGATIVE Normal Value: Negative Chlamydia trachomatis: NEGATIVE Normal Value: Negative THINPREP PAP TEST, Cervix Reviewed date:05/19/2024 05:00:58 PM Interpretation:NIL Performing Lab:[facility], [address], [place], [address] Varinder Paniagua DO Notes/Report: THINPREP PAP TEST NEGATIVE NEGATIVE N -- THIN PREP PAP TEST -- SEX: F : 1975 AGE: 49 [id number] CLINIC ID: [id number] SS: PHYSICIAN: SHANICE LINCOLN NUCLEAR PLANT INSTRUMENT TECHNICIAN COLLECTED BY: Negative for Intraepithelial Lesion or Malignancy Additional Findings: Endocervical Material Present Specimen Adequacy: Satisfactory for Evaluation Previous History: September 2015 Negative HPV(Neg) Clinical Note: HPV SlxaqdyP67.419 Encounter for gynecological examination (general) (routine) without abnormal mlqyddieO73.51 Encounter for screening for human papillomavirus (HPV)Z11.3 [...] tablet as needed Orally every 6 hrs Not-Taking/SD N Baclofen Active Social History Sex Assigned [...] 05/12/2024 Encounters Encounter Location Date Provider Diagnosis [facility] [address] [place] [address] [address] [place], [place] [id number] 05/12/2024 SHANICE LINCOLN Encounter for gynecological examination [...] to date with mammo, had done at [facility], normal as per clt. Discussed perimenopause, clt [...] Plan Of Treatment Next Appt Details Provider Name:MARY SERRANO, 02:15:00 PM, [address] [place] [address], [facility], [place], [place], [id number], Insurance Providers Payer Name Payer Address Payer Phone Subscriber Number Group Number Insured Name Patient Relationship to Insured Coverage Start Date Coverage End Date [place] [address] [place] [id number] [phone] [id number] Abbie Velasquez Self - patient is the [...]
--- OUTSIDE RECORDS SUMMARY | 2025-05-10 13:55 | XMS_ITS | Clinical Summary ---
Author Organization [facility] [address] [place] [address] [place] [address] Phone Care Team Providers Care Senior Catering Sales Manager Name Role Phone Gemini Larson S[place] Primary Care Provider [phone] Immunizations Immunization Administration Dates Next Due Moderna [...] Orientation Straight 11/24/2024 10 :15 AM EDT Last Filed Vital Signs Vital Sign Reading [...] Procedure Name Priority Date/Time Associated Diagnosis Comments [facility] SCREENING DIGITAL Routine 12/13/2023 3:02 PM EDT Encounter for screening mammogram for malignant neoplasm of breast from Last 3 Months or Most Recently Relevant to Health Maintenance Results * [facility] SCREENING DIGITAL (12/13/2023 3:02 PM EDT) Anatomical Region Laterality Modality Mammography 12/13/2023 1:29 PM EDT Narrative 12/13/2023 3:02 PM EDT [facility] Diagnostic Imaging Department [address] [place] [address] Patient: ABBIE VELASQUEZ /Age/Sex: 1975 - 48 - F Unit#: [id number] [facility] Mn[facility]onic/Ordering Site: [facility] Ordering Physician: CAYLA CUNNINGHAM [facility] Screening Digital - 12/13/23 - [id number] Report Status:Signed EXAM: [facility] Screening Digital EXAM DATE AND TIME: 12/13/2023 2:03 PM HISTORY: Screening. COMPARISON: 11/02/22, 06/07/21, 07/20/19 TECHNIQUE: Bilateral digital breast tomosynthesis was performed in the CC and MLO projections. Computer aided detection with Tekora 3D 3.1 was employed. TISSUE DENSITY: b. [...] 1502 Sign date/Time: 12/13/23 1502 Procedure Note Maribel Doyle MD - 02/26/2024 [facility] Diagnostic Imaging Department [address] [place] [address] Patient: ABBIE VELASQUEZ /Age/Sex: 1975 - 48 - F Unit#: [id number] Location/Status: [facility]/REG CLI Mnemonic/Ordering Site: [facility] Ordering Physician: CAYLA CUNNINGHAM [facility] Screening Digital - 12/13/23 - [id number] Report Status:Signed EXAM: [facility] Screening Digital EXAM DATE AND TIME: 12/13/2023 2:03 PM HISTORY: Screening. COMPARISON: 11/02/22, 06/07/21, 07/20/19 TECHNIQUE: Bilateral digital breast tomosynthesis was performed in the CCand MLO projections. Computer aided detection with Tekora 3D 3.1was employed. TISSUE DENSITY: b. There [...] Most Recently Relevant to Health Maintenance Insurance [facility] MEDICAID ADVANTAGE Care Teams Senior Catering Sales Manager Relationship Specialty Start Date End Date Gemini Larson NP [address] [place] [id number] PCP - General 06/06/21
== END 2025-05-10 12:57 | disposition home or self-care (01) ==
LOC: HO.HNS 11:50
PROVIDERS: PCP Physician Assistant Medical; Visit Provider Physician Assistant
DX: M51.16 Intervertebral disc disorders with radiculopathy, lumbar region (principal)
CPT/HCPCS: 99024

== ENCOUNTER → 2025-05-10 11:49 | Outpatient (BNVA) | payer OTHER, SELFPAY | PROVIDERS: PCP Physician Assistant Medical; Visit Provider Physician Assistant | DX: Z47.89 Encounter for other orthopedic aftercare (principal); M51.16 Intervertebral disc disorders with radiculopathy, lumbar region | CPT/HCPCS: 99212 ==